=== PATIENT | female | born 1990 | race Caucasian/White ===

== ENCOUNTER 2018-05-23 00:15 | Outpatient (CLI) | payer SELFPAY ==
[2018-05-23 10:26] LABS: HCG Quant, Pregnancy 1856 mIU/mL (1-3)
[2018-05-24 17:30] LABS: Progesterone 27.5 ng/ml
== END 2018-05-23 00:35 ==
PROVIDERS: Visit Provider Obstetrics & Gynecology Reproductive Endocrinology
DX: Z32.01 Encounter for pregnancy test, result positive (principal)
CPT/HCPCS: 36415; 84144; 84702

== ENCOUNTER 2018-05-25 01:45 | Outpatient (CLI) | payer SELFPAY ==
[2018-05-25 09:39] LABS: HCG Quant, Pregnancy 3314 mIU/mL (1-3)
[2018-05-25 16:47] LABS: Progesterone 26.9 ng/ml
== END 2018-05-25 02:05 ==
PROVIDERS: Visit Provider Obstetrics & Gynecology Reproductive Endocrinology
DX: Z32.01 Encounter for pregnancy test, result positive (principal)
CPT/HCPCS: 36415; 84144; 84702

== ENCOUNTER 2020-04-07 11:53 | Outpatient (REF) | payer SELFPAY ==
--- NOTE | 2020-04-07 11:00 | PAPFT_PTH ---
PATIENT: Kandi Mireles LOC: [facility]#:[id number] AGE/SX: 29/F ROOM: RE04/07/[address]: Jayne Durant : 1990 BED: DIS: 04/07/2020 SPEC #: [id number] RECD: 04/10/20 13:08 STATUS: FADUMO REQ #: [id number] TONY: 04/07/20 11:[address]: Jayne Durant DEPT: [facility] Cytology RECD BY: Sunni Jung ENTERED: 04/10/20 13:08 SP TYPE: PAPFT OTHR DR: Bianca Snow Tissues: 1 - CX/ENDOCX FOR PAP SMEARS Procedures: PAP THIN PREP/UVM Screening Comments: [id number] (CHLAMYDIA/GC)
[2020-04-11 15:31] LABS: Chlamydia Result Negative (Negative); GC Result Negative (Negative)
== END 2020-04-07 12:13 ==
LOC: NCHCN 11:53
PROVIDERS: Visit Provider Nurse Practitioner Family
DX: Z12.4 Encounter for screening for malignant neoplasm of cervix (principal); Z11.3 Encounter for screening for infections with a predominantly sexual mode of transmission
CPT/HCPCS: 87491; 87591; 88142

== ENCOUNTER 2020-04-13 02:40 | Outpatient (CLI) | payer SELFPAY ==
--- NOTE | 2020-04-13 | DI.US_ITS ---
EXAM: US BREAST RT LIMITED CLINICAL HISTORY: RT BREAST LUMP, N63.0 TECHNIQUE: Ultrasound right breast performed using standard protocol. COMPARISON: No exams were available for comparison FINDINGS: There is a 1.3 x 1.0 X 1.4 centimeter cyst in the 12 o'clock position 4 cm from the nipple, correspo nding to the palpable abnormality. There are few other adjacent smaller cysts in the vicinity. Nose suspicious masses are seen. There is no evidence of ductal dilatation. IMPRESSION: 1.4 centimeter cyst corresponding to the palpable abnormality. BI-RADS Category 2 - Benign Findings DATA REPOSITORY:
== END 2020-04-13 03:00 ==
PROVIDERS: PCP Nurse Practitioner Family; Visit Provider Nurse Practitioner Family
DX: N60.01 Solitary cyst of right breast (principal)
CPT/HCPCS: 76642

== ENCOUNTER 2021-01-12 13:22 | Outpatient (REF) | payer OTHER, MEDICAID, SELFPAY ==
[2021-01-12 14:38] LABS: *AMPHETAMINES SCREEN URINE Negative (Negative); *BARBITURATES SCREEN URINE Negative (Negative); *BENZODIAZEPINES SCREEN URINE Negative (Negative); Cannabinoids THC Negative (Negative); Cocaine Screen,Urine Negative (Negative); METHADONE URINE SCREEN Negative (Negative); OPIATES URINE SCREEN Negative (Negative)
[2021-01-12 14:39] LABS: Tricyclic Antidepressants Negative (Negative)
[2021-01-16 08:58] LABS: Chlamydia Result Negative (Negative); GC Result Negative (Negative)
[2021-01-18 10:03] LABS: Buprenorphine Negative ng/mL (Cutoff: 5.0); Norbuprenorphine Negative ng/mL (Cutoff: 2.5)
== END 2021-01-12 13:23 | disposition home or self-care (01) ==
LOC: LBN 13:22
PROVIDERS: PCP Nurse Practitioner Family; Visit Provider Advanced Practice Midwife
DX: O09.01 Supervision of pregnancy with history of infertility, first trimester (principal); Z11.3 Encounter for screening for infections with a predominantly sexual mode of transmission; Z3A.12 12 weeks gestation of pregnancy
CPT/HCPCS: 80307; 87491; 87591; 87086

== ENCOUNTER 2021-01-17 02:55 | Outpatient (CLI) | payer OTHER, MEDICAID, SELFPAY ==
[2021-01-17 09:54] LABS: Kit/Specimen SENT
[2021-01-17 10:05] LABS: Abs Immature Grans 0.04 10^3/uL (0.0-0.06); Absolute Basophil Count 0.07 10^3/uL (0.0-0.2); Absolute Lymphocyte Count 2.51 10^3/uL (1.2-3.4); Absolute Monocyte Count 0.62 10^3/uL (0.1-0.8); Absolute Neutrophil Count 7.47 10^3/uL (1.2-6.7); Basophils % 0.6; Eosinophils % 1.8; HCT 40.8 % (36.0-46.0); HGB 13.6 g/dL (11.2-15.7); Immature Grans % 0.4; MCH 30.3 pg (27.0-33.0); MCHC 33.3 % (32.0-36.0); MCV 90.9 fL (80-95); Monocytes % 5.7; Neutrophils % 68.5; Nucleated RBC 0 %; Platelet Count 335 10^3/uL (130-400); RBC 4.49 10^6/uL (3.93-5.22); RDW 11.9 % (11.7-14.6); RDW-SD 39.7 fL; WBC 10.91 10^3/uL (4.4-10.8)
[2021-01-17 10:53] LABS: TSH (W/Ref FT4) 1.43 uIU/mL (0.36-3.74)
[2021-01-18 10:07] LABS: Hepatitis B Surface Ag Negative (Negative)
[2021-01-18 10:25] LABS: Hepatitis C Ab w Rflx HCV PCR Negative (Negative)
[2021-01-18 10:48] LABS: Varicella IgG Antibody Positive (See Note)
[2021-01-18 10:53] LABS: Rubella IgG Ab (UVM) Positive (See Note)
[2021-01-18 11:00] LABS: HIV-1/2 Ag & Ab Screen Negative (Negative)
[2021-01-20 10:55] LABS: Syphilis Total Ab w/Reflex Nonreactive (Nonreactive)
== END 2021-01-17 02:56 | disposition home or self-care (01) ==
PROVIDERS: PCP Nurse Practitioner Family; Visit Provider Advanced Practice Midwife
DX: Z34.91 Encounter for supervision of normal pregnancy, unspecified, first trimester (principal); Z11.4 Encounter for screening for human immunodeficiency virus [HIV]; Z11.59 Encounter for screening for other viral diseases; Z01.84 Encounter for antibody response examination
CPT/HCPCS: 36415; 86787; 86803; 86850; 86900; 86901; 87340; 87389; 84443; 85025; 86762; 86780

== ENCOUNTER 2021-05-08 03:30 | Outpatient (CLI) | payer MEDICAID, SELFPAY ==
[2021-05-08 10:41] LABS: HCT 38.1 % (36.0-46.0); HGB 12.8 g/dL (11.2-15.7); MCH 30.8 pg (27.0-33.0); MCHC 33.6 % (32.0-36.0); MCV 91.8 fL (80-95); MPV 9.9 fL (8.0-11.0); Platelet Count 291 10^3/uL (130-400); RBC 4.15 10^6/uL (3.93-5.22); RDW 12.5 % (11.7-14.6); RDW-SD 41.9 fL; WBC 13.88 10^3/uL (4.4-10.8)
[2021-05-08 10:48] LABS: Glucose,1 Hr (Glucola) 95 mg/dL (80-140)
== END 2021-05-08 03:31 | disposition home or self-care (01) ==
LOC: LBO 03:31
PROVIDERS: PCP Nurse Practitioner Family; Visit Provider Advanced Practice Midwife
DX: Z3A.28 28 weeks gestation of pregnancy; O26.893 Other specified pregnancy related conditions, third trimester
CPT/HCPCS: 36415; 82950; 85027

== ENCOUNTER 2021-07-04 15:12 | Outpatient (REF) | payer MEDICAID, SELFPAY ==
[2021-07-04 15:10] LABS: *AMPHETAMINES SCREEN URINE Negative (Negative); *BARBITURATES SCREEN URINE Negative (Negative); *BENZODIAZEPINES SCREEN URINE Negative (Negative); Cannabinoids THC Negative (Negative); Cocaine Screen,Urine Negative (Negative); METHADONE URINE SCREEN Negative (Negative); OPIATES URINE SCREEN Negative (Negative)
[2021-07-04 15:20] LABS: Tricyclic Antidepressants Negative (Negative)
[2021-07-17 14:51] LABS: Buprenorphine Negative ng/mL (Cutoff: 5.0); Norbuprenorphine Negative ng/mL (Cutoff: 2.5)
== END 2021-07-04 15:13 | disposition home or self-care (01) ==
LOC: LBN 15:12
PROVIDERS: PCP Nurse Practitioner Family; Visit Provider Advanced Practice Midwife
DX: O09.813 Supervision of pregnancy resulting from assisted reproductive technology, third trimester (principal)
CPT/HCPCS: 80307; 87081

== ENCOUNTER 2021-08-03 05:18 | Inpatient (IN) | payer MEDICAID, SELFPAY ==
[2021-08-03] VITALS (20 sets, daily range): BP systolic 98–123; BP diastolic 59–85; PULSE 79–117; RESP 18–20; TEMP 36.8–37.2; O2SAT 95–100
--- NOTE | 2021-08-03 05:22 | W.PM.OBHPL1 ---
Date of service: 08/03/21 Time of Service: 05: Assessment and Plan Assessment and plan (1) with 41 completed weeks gestation: Status: Acute (2) Spontaneous onset of labor: Status: Acute Assessment and plan: A: 30 yo @ 41 wks; IVF conception Presents in early labor, intact membranes GBS neg, low risk for SD and PPH Category 1 tracing though NST not technically reactive Planning unmedicated labor & P: COVID swab, observation for active labor Expectant management at this time Intermittent auscultation, regular diet OB-HPI Labor/Delivery History of Present Illness Reason for Visit: Spontaneous onset of labor Chief Complaint: Uterine Contractions (Contractions since 1830 last night, became stronger and more consistent at 0300, no ROM, no bleeding, no nausea or vomiting). SUGEY Calculator Estimated Delivery Date Method Current WG Current Estimate 07/27/21 Ultrasound #1 41w 0d Other Estimates 07/27/21 Manual 41w 0d based on egg transfer date of 11/08/2020([facility]) History of Present Expected Delivery Route/Plan - CNM FOB/ - Darinel Mireles (first child) BG- Gladis Disha Wants access to avoid interventions, access tub/shower/nitrous GBS negative Specific Issues/Plan 1. Desires all genetic screening, will call for bld draw once she knows the financial requirements. 1a. [place] desired - drawn 01/17; result = low prob x3, female fetus 2. IVF after 3 SAB's, etiology unknown 2a. Level 2 US offered due to IVF conception, MFM consult 04/17: nml , no f/up indicated. 3. Low lying placenta @ 18 wks 03/01 - precautions reviewed - repeat US @ 28 wks 3a. [facility] [place]: no previa, placenta not low lying. 4. Darinel and Kandi are not vaccinated against covid. Assessment: History Reviewed & Current Review of Systems All systems reviewed & are unremarkable except as noted in HPI and below Constitutional Constitutional: Reports as per HPI Cardiovascular Cardiovascular: Reports system reviewed and no additional complaints, except as documented Respiratory Respiratory: Reports system reviewed and no additional complaints, except as documented Gastrointestinal Gastrointestinal: Reports system reviewed and no additional complaints, except as documented Genitourinary Genitourinary: Reports system reviewed and no additional complaints, except as documented Musculoskeletal Musculoskeletal: Reports system reviewed and no additional complaints, except as documented Integumentary/Breasts Skin/Breast: Reports system reviewed and no additional complaints, except as documented Neurologic Neurologic: Reports system reviewed and no additional complaints, except as documented Psychiatric Psychiatric: Reports system reviewed and no additional complaints, except as documented Endocrine Comments: Infertility and habitual SAB, this a product of IVF PFSH All Active Problems (Updated 08/03/21 @ 05:31 by Mellisa Gonzalez) with 41 completed weeks gestation (Acute) Spontaneous onset of labor (Acute) resulting from in vitro fertilization (Acute) Medical History (Updated 08/03/21 @ 05:31 by Mellisa Gonzalez) 12 weeks gestation of Low lying placenta nos or without hemorrhage, second trimester resolved in third trimester Ovarian cyst Family History Mother Cervical cancer Hyst r/t cancer Essential hypertension Father No problems noted. Sister No problems noted. Sister No problems noted. Brother No problems noted. Grandmother Breast cancer tx with lumpectomy Social History Smoking/Tobacco Use Status: Never Smoking risk assessment performed?: Yes History History 4 Para 0 Hx # Term Pregnancies 0 Multiple births 0 Hx # Pregnancies 0 Ectopic pregnancies 0 AB induced 0 Hx Number of Living Children 0 AB spontaneous 3 Meds Allergies and Home Medications Allergies Allergy/AdvReac Type Severity Reaction Status Date / Time No Known Drug Allergies Allergy Verified 08/03/21 03:47 seasonal Allergy Intermediate runny Uncoded 08/03/21 03:47 nose, postnasal drip cats Allergy Mild Uncoded 08/03/21 03:47 Home Medications Medication Instructions Recorded Confirmed Type [id number] 1 tab-cap PO DAILY tab-cap 07/04/17 08/03/21 History [Prenata Chewable Tablet] calcium carbonate 200 mg calcium 200 mg PO BID PRN 04/10/21 08/03/21 History (500 mg) chewable tablet ferrous sulfate 325 mg (65 mg 325 mg PO .COMPLEX 04/10/21 08/03/21 History iron) tablet Exam Physical Exam Vital signs: Temp Pulse Resp BP 98.2 F 117 H 18 104/77 08/03/21 04:43 08/03/21 04:43 08/03/21 04:43 08/03/21 04:43 Vital Signs Reviewed: Yes Constitutional Constitutional: no acute distress Detailed Labor and Delivery Exam Dilation: 3 Effacement (%): 100 station: -3 Position: LOP Cervix position: mid Consistency: soft PACKER Score(Cervical Ripeness Score): 8 Amniotic Membrane Status: Intact Contraction Frequency(min): q3-6 Contraction Duration(sec): 60 Contraction Intensity: Mild Fetus A Heart Rate Baseline: 155 Monitor Accelerations: Present Monitor Decelerations: None Variability: Moderate (6-25 BPM) Presentation: Cephalic Categories: Category I Est. Weight: 7 lb 0.877 oz Est. Weight: 3200 gm HEENT Exam HEENT Exam: Normal Neck Exam Neck Exam: Normal Chest/Brest/Axilla Exam Chest Exam: Normal Breast Exam Breast Exam: Not Done Respiratory Exam Respiratory Exam: Normal Cardiovascular Exam Cardiovascular Exam: Normal Abdominal Exam Abdominal Exam: Normal (Gravid, nontender) Rectal Exam Rectal Exam: Normal Exam Exam: Normal Extremities Exam Extremities Exam: Normal Back/Spine/Pelvis Exam Back Exam: Normal Pelvis Adequate: Yes Skin Exam Skin Exam: Normal Neurological Exam Neurological Exam: Normal Psychiatric Exam Psychiatric Exam: Normal Results Results Group Beta Strep: Negative Blood Type: O+ Rubella Status: Immune Varicella Immunity: Immune Risk Assessment Risk for Shoulder Dystocia Historical/Initial OB: NEGATIVE FOR: Pelvic Abnormality, Pre- BMI>30, Previous Shoulder Dystocia or Previous Macrosomia 40 Weeks: NEGATIVE FOR: EFW> 4500 gms, Maternal Weight Gain >40lb or Post Dates Increased Risk?: No Delivery Plan @ 36wks: spont labor, Delivery Plan @ 40 wks: spont labor, Risk for Pre-Eclampsia Date Initiated/Initials: not indicated Yes, if one or more: NEGATIVE FOR: Hx Pre-E/Gest HTN, Chronic HTN, Multiple Gestation, Pre-gestational DM, Renal Disease, Systemic Lupus or APA Syndrome Yes, if 2 or more: POSITIVE FOR: Nulliparity; NEGATIVE FOR: Age>= 35 yrs, >10yr btwn pregnancies, BMI>30, ethinicty, Mother/Sister w/ Pre-E or Previous IUGR Risk for Post- Hemorrhage Initial: NEGATIVE FOR: Multiple Gestation, Previous PPH, Known Clotting Deficiency, Grand Multiparity or Anticoagulation At Risk?: No Counseled re: Active Management: Yes Risks Reviewed Risks Reviewed Upon Admission: Yes
[2021-08-03 05:49] LABS: Source Nasal/Nares
[2021-08-03 06:14] LABS: HCT 40.1 % (36.0-46.0); MCH 30.7 pg (27.0-33.0); MCHC 32.4 % (32.0-36.0); MCV 94.6 fL (80-95); MPV 10.6 fL (8.0-11.0); Platelet Count 191 10^3/uL (130-400); RBC 4.24 10^6/uL (3.93-5.22); RDW 12.7 % (11.7-14.6); RDW-SD 43.9 fL; WBC 12.64 10^3/uL (4.4-10.8)
[2021-08-03 06:30] LABS: COVID-19 PCR POSITIVE (Negative)
--- NOTE | 2021-08-03 07:37 | W.PM.OBNL1 ---
Date of service: 08/03/21 Time of Service: 07:37 Assessment and Plan Assessment and plan (1) COVID-19 affecting in third trimester: Status: Acute Assessment and plan: A: COVID Swab is positive Upon renewed questions pt states she has had a mild sore throat since yesterday Afebrile, no cough observed P: Pt and FOB moved to isolation birthing suite Reviewed precautions required Objective Abnormal lab results 08/03/21 08/03/21 Range/Units 05:30 06:06 WBC 12.64 H (4.4-10.8) 10^3/uL SARS-CoV-2 (PCR) POSITIVE A* (Negative) Temp Pulse Resp BP 98.2 F 117 H 18 104/77 08/03/21 06:43 08/03/21 06:43 08/03/21 06:43 08/03/21 06:43 Laboratory Results WBC 12.64 10^3/uL (4.4-10.8) H 08/03/21 06:06 RBC 4.24 10^6/uL (3.93-5.22) 08/03/21 06:06 Hgb 13.0 g/dL (11.2-15.7) 08/03/21 06:06 Hct 40.1 % (36.0-46.0) 08/03/21 06:06 MCV 94.6 fL (80-95) 08/03/21 06:06 MCH 30.7 pg (27.0-33.0) 08/03/21 06:06 MCHC 32.4 % (32.0-36.0) 08/03/21 06:06 RDW 12.7 % (11.7-14.6) 08/03/21 06:06 Plt Count 191 10^3/uL (130-400) 08/03/21 06:06 MPV 10.6 fL (8.0-11.0) 08/03/21 06:06 COVID-19 Source Nasal/Nares 08/03/21 05:30 SARS-CoV-2 (PCR) POSITIVE (Negative) A* 08/03/21 05:30 Patient ABO/Rh O Positive 08/03/21 06:06 Antibody Screen NEGATIVE 08/03/21 06:06 Subjective Patient Reports: No new Complaints Results Abnormal Lab Findings: Abnormal Labs 08/03/21 08/03/21 05:30 06:06 WBC 12.64 H SARS-CoV-2 (PCR) POSITIVE A*
--- NOTE | 2021-08-03 11:46 | NUR.NOTE ---
08/03/21 Parents have viewed the following video's Shaken Baby, Safe Sleep, Car Seat Safety and Breastfeeing 1,2,3
--- NOTE | 2021-08-03 12:59 | W.PM.OBNL1 ---
Date of service: 08/03/21 Time of Service: 12:59 Pelvic Exam Dilation: 5 Effacement (%): 100 station: -2 Position: LOT Cervix Position: anterior Consistency: soft Contractions Contraction Frequency(min): q3-4 Contraction Duration(sec): 50-70 Intensity: Moderate Fetus A Monitor: External (US) Heart Rate Baseline: 150 Presentation: Cephalic Variability: Moderate (6-25 BPM) Categories: Category I Accelerations: 15 X 15 Decelerations: Early Amniotic Membrane Status: Intact (soft BBOW palpable) Assessment and Plan Assessment and plan (1) Spontaneous onset of labor: Status: Acute Assessment and plan: A: Primipara, early active labor, progressing COVID infection, mild sx P: Continue expectant management Intermittent auscultation Comfort measures as requested All options for pain management reviewed/discussed Anticipate Objective Vital Signs Reviewed: Yes Objective Narrative Objective Narrative: Pt has been resting, ambulating, and has showered. Tolerating PO intake well Effective support provided by FOB Spontaneous labor appears to be more active now Cvx changed to 5/100% vtx -2, intact with soft BBOW Pt reaffirms her preference for unmedicated labor and experience Afebrile and normotensive Category 1 tracing, reassuring intermittent FHT per doppler Subjective Interval history since last seen: Contractions have gotten more painful and frequent
--- NOTE | 2021-08-03 19:46 | W.PM.OBNL1 ---
Date of service: 08/03/21 Time of Service: 19:46 Pelvic Exam Dilation: 8 Effacement (%): 100 station: -2 Cervix Position: anterior Consistency: soft Vaginal Exam Presentation: Cephalic Contractions Monitor Mode: External Contraction Frequency(min): Q3-4 Contraction Duration(sec): 80-100 Intensity: Moderate/Strong Fetus A Monitor: External (US) Heart Rate Baseline: 150 Variability: Moderate (6-25 BPM) Categories: Category I Accelerations: 15 X 15 Decelerations: Early Amniotic Membrane Status: Intact Assessment and Plan Assessment and plan (1) Spontaneous onset of labor: Status: Acute Assessment and plan: A: Active labor, primipara Category 1 tracing In isolation for COVID infection P: Comfort measures and support as needed Encourage PO fluid intake Continue expectant management Anticipate Objective Vital Signs Reviewed: Yes Objective Narrative Objective Narrative: Breathing hard with contractions, Very effective support from FOB Pleased with her progress to transition Category 1 tracing Subjective Interval history since last seen: Labor pains have been intensifying throughout the afternoon, has showered, ambulated, but found that hands and knees on floor mat most helpful.
--- NOTE | 2021-08-03 20:56 | W.PM.OBNL1 ---
Date of service: 08/03/21 Time of Service: 20:56 Fetus A Monitor: Doppler Heart Rate Baseline: 150 FHR Rhythm: Regular Accelerations: Present Decelerations: None Amniotic Membrane Status: Ruptured Rupture Method: Spontaneous Amniotic Fluid: Clear Date of Membrane Rupture: 08/03/21 Time of Membrane Rupture: 20:20 Assessment and Plan Assessment and plan (1) Spontaneous onset of labor: Status: Acute Assessment and plan: A: SROM clear fluid @ 8-9 cm, vtx -2 pt coping well with labor P: Continue expectant management Will await spontaneous urges to bear down for 2nd stage huddle Anticipate Subjective Interval history since last seen: Pt was lying down when her water broke Results Abnormal Lab Findings:
--- NOTE | 2021-08-03 23:29 | W.PM.OBNL1 ---
Date of service: 08/03/21 Time of Service: 23:30 Informed Consent Informed Consent: Augmentation of Labor (pit aug in 2nd stage) Pelvic Exam Dilation: 9.5 Effacement (%): 100 station: +1 Position: CHERI Contractions Monitor Mode: External Contraction Frequency(min): q4-6 Contraction Duration(sec): 60 Intensity: Moderate/Strong Fetus A Monitor: External (US) Heart Rate Baseline: 155 Variability: Moderate (6-25 BPM) Categories: Category I Accelerations: 15 X 15 Decelerations: None Amniotic Membrane Status: Ruptured (forebag AROM'ed for small amt clear fluid) Assessment and Plan Assessment and plan (1) Spontaneous onset of labor: Status: Acute Assessment and plan: A: Inadequate contraction pattern 2nd stage labor with vtx @ +2 A: Begin pitocin augmentation, pt give consent after review of R&B Will resume pushing efforts when contractions strengthen Objective Pt has slowly and steadily progressed to Vital Signs Reviewed: Yes Objective Narrative Objective Narrative: Pt has slowly and steadily progressed Contractions have spaced out to q4-6 minutes or even further apart Vtx is CHERI with small but persistent anterior lip Intermittent FHT has been reassuring Excellent maternal efforts though pt appears to be tiring Subjective Interval history since last seen: Spontaneous urges to bear down occur with contractions but contractions seem to have spaced apart Interventions Augmentation , Pitocin rate (mU/min): 2 2nd stage augmentation due to inadequate contraction frequency & strength .
[2021-08-04] VITALS (11 sets, daily range): BP systolic 107–127; BP diastolic 63–80; PULSE 88–114; RESP 20; TEMP 36.6–36.9; O2SAT 97–100
[2021-08-04] MEDS: Normal Saline 500 ML 120 ML IV (00:13)
[2021-08-04] MEDS: Normal Saline Flush 10 ML SYR IVP (00:14)
[2021-08-04] MEDS: Oxytocin/Normal Saline 30 UNIT/500 ML BAG 2 UNITS IV (00:15)
[2021-08-04] MEDS: Lactated Ringers 1,000 ML 125 ML IV (01:07)
--- NOTE | 2021-08-04 02:49 | OBVDS_ITS ---
Date of service: 08/04/21 Time of Service: 02:49 OB Labor/ Delivery Information Baby A Delivery Delivery Method: Spontaneaous Presentation: Cephalic Cephalic Position: Vertex Vertex Position: Left Occipital Anterior Breech Position: N/A Cord Description-Baby A: 3 Vessels Amniotic Fluid: Clear Estimated Blood Loss: 250 Delivery Outcome: Liveborn Transferred: Remains with Mother Note: Once pitocin augmentation began, contractions responded quickly with increased frequency and strength. Pt resumed pushing efforts with thin anterior lip easily reduced to complete dilation and vtx @ +2 at 0035. Strong maternal efforts continued, pitocin increased to a maximum of 6 mu/min, category 1 tracing continued. of a vigorous female over small MLE cut after noting severe blanching of perineum and lower labia bilaterally during prolonged . Shoulders came easily, right nuchal hand noted with right arm delivering prior to posterior shoulder, infant was placed in mother's arms immediately. Pitocin IV bolus was begun. At 5 minutes the cord ceased pulsating, clamped then cut by FOB. Cord blood was collected, Alfonso placenta delivered intact with 3VC. 2nd degree perineal extension was repaired under local anesthesia with 3.0 Vicryl, anal sphincter and capsule were intact. Strong family bonding was observed, apgars were 9/9, weight 3525 gms. Providers Nurse Roll Table Operator: Mellisa Gonzalez Nurse: Bianca Amador Labor/Delivery Information Number of Babies in Womb: 1 Steroids Given: None Reason Steroids Not Administered: N/A Group Beta Strep: Negative Antibiotics Administered: No Rubella Status: Immune Blood Type: O+ Varicella Immunity: Immune Medication in Delivery: oxytocin Maternal Complications: None Shoulder Dystocia: No Stages of Labor Onset of Labor Date: 08/02/21 Onset of Labor Time: 19:00 Complete Dilatation Date: 08/03/21 Complete Dilatation Time: 00:35 Labor - Stage 1 Duration: 24 hours and 0 minutes ROM Baby A: 08/03/21 ROM Baby A: 22:34 ROM Total Time- Baby A: [id number] Delivery Date-Baby A: 08/04/21 Infant Delivery Time-Baby A: 01:59 Labor Stage 2 Duration: 25 hours and 24 minutes Placenta Delivery Date-Baby A: 08/04/21 Placenta Delivery Time-Baby A: 02:10 Labor-Stage 3 Duration: 11 minutes Total Length of Labor-Baby A: 30 hours and 59 minutes Placenta Cultured: No Placenta Status: Delivered Baby A Gender: Female Gestational Status: Term (39-41.6 wks) Gestational Age in Weeks/Days: 41 Weeks and 1 Days weight: 7 lb 12.341 oz Weight Comment: 3525 gms Score-1 Minute Interval(Baby A) Heart Rate-1 minute: 100 BPM or Greater Respiratory Effort- 1 minute: Spontaneous/Strong Cry Muscle Tone-1 minute: Active Movement Reflex Response-1 minute: Prompt Response Color-1 minute: Bluish Hands or Feet Total Score-1 minute: 9 Score-5 Minute Interval(Baby A) Heart Rate- 5 minute: 100 BPM or Greater Respiratory Effort-5 minute: Spontaneous/Strong Cry Muscle Tone-5 minute: Active Movement Reflex Response-5 minute: Prompt Response Color-5 minute: Bluish Hands or Feet Total Score- 5 minute: 9 Procedure Procedures: Cord Blood Collection Interventions Augmentation , Pitocin rate (mU/min): 6 2nd stage augmentation ./ Repair of Laceration Type: Perineal , Laceration Extension: Second Degree . Sponge Count Correct: No Sponges Placed in Vagina , Sharp Count Correct: Yes . Laceration Repair Note: Small MLE cut during extended to second degree, repaired under local anesthesia with 3.0 Vicryl.
[2021-08-04] MEDS: Dibucaine 1% 28 GM TUBE TP (04:30)
[2021-08-04] MEDS: Hamamelis Leaf/Glycerin 100 EACH BOX PR (04:30)
[2021-08-04] MEDS: Docusate Sodium 100 MG CAP PO ×2 (13:50→20:09)
[2021-08-04] MEDS: Acetaminophen 325 MG TAB 650 MG PO ×2 (16:05→20:08)
[2021-08-04] MEDS: Ibuprofen 600 MG TAB PO (20:09)
--- NOTE | 2021-08-04 22:31 | W.PM.OBPNV1 ---
Date of service: 08/05/21 Time of Service: 08:55 Assessment and Plan Assessment and plan (1) Term delivered: Status: Acute Assessment and plan: A: PPD#1, nml recovery off to a good start Satisfied with experience P: Pt is hoping for discharge by Peds today Written instructions reviewed and given to pt Will resume PNV's once she is at home F/up at 2 & 6 wks PP Declines BCM at this time (2) COVID-19 affecting in third trimester: Status: Acute Subjective Subjective Patient comments: Pain well controlled, Tolerating diet and Flatus present [place] baby status: Doing well, Nursing well, Rooming in and Strong Bonding Observed feeding status: Exclusively breast feeding Exam Physical Exam Vital signs: Temp Pulse Resp BP Pulse Ox 98.1 F 94 H 20 119/76 97 08/04/21 20:05 08/04/21 20:05 08/04/21 20:05 08/04/21 20:05 08/04/21 20:05 Vital Signs Reviewed: Yes Constitutional Constitutional: no acute distress HEENT Exam HEENT Exam: Normal Neck Exam Neck Exam: Normal Breast Exam Bilateral: Breast Exam: Normal and Soft Nipple Exam: Normal and Uninjured Respiratory Exam Respiratory Exam: Normal Cardiovascular Exam Cardiovascular Exam: Normal Abdominal Exam Abdomen: Other (soft and nontender) Fundal Exam Fundus: Below Umbilicus and Firm Rectal Exam Rectal Exam: Normal Exam Perineum: Repair Intact Extremities Exam Extremity Exam: Normal Back/Spine/Pelvis Exam Back Exam: Normal Skin Exam Skin Exam: Normal Neurological Exam Neurological Exam: Normal Psychiatric Exam Psychiatric Exam: Normal
[2021-08-05 07:17] LABS: HCT 33.4 % (36.0-46.0); HGB 10.7 g/dL (11.2-15.7); MCH 30.7 pg (27.0-33.0); MCV 95.7 fL (80-95); MPV 10.6 fL (8.0-11.0); Platelet Count 201 10^3/uL (130-400); RBC 3.49 10^6/uL (3.93-5.22); RDW 13.1 % (11.7-14.6); RDW-SD 45.8 fL; WBC 14.42 10^3/uL (4.4-10.8)
[2021-08-05] MEDS: Acetaminophen 325 MG TAB 650 MG PO ×3 (08:14→23:28)
[2021-08-05 08:15] VITALS: BP 102/61; PULSE 76; RESP 18; TEMP 36.5; O2SAT 98
[2021-08-05] MEDS: Hamamelis Leaf/Glycerin 100 EACH BOX PR (08:15)
[2021-08-05] MEDS: Docusate Sodium 100 MG CAP PO (08:15)
[2021-08-05] MEDS: Dibucaine 1% 28 GM TUBE TP (08:15)
[2021-08-05] MEDS: Ibuprofen 600 MG TAB PO ×2 (08:15→16:35)
[2021-08-05 13:20] VITALS: BP 113/69; PULSE 80; RESP 16; TEMP 36.5; O2SAT 99
[2021-08-05 16:15] VITALS: BP 114/66; PULSE 74; RESP 16; TEMP 36.9
[2021-08-05 16:35] VITALS: TEMP 36.9
[2021-08-05 20:04] VITALS: BP 117/75; PULSE 74; RESP 18; TEMP 36.7; O2SAT 98
[2021-08-06 07:37] VITALS: BP 120/80; PULSE 89; RESP 16; TEMP 36.6; O2SAT 98
--- NOTE | 2021-08-06 08:29 | W.PM.OBPNV1 ---
Date of service: 08/06/21 Time of Service: 08:29 Assessment and Plan Assessment and plan (1) Term delivered: Status: Acute Assessment and plan: A: PPD#2, nml recovery LC consult done yesterday afternoon P: Discharge to home today Written instructions reviewed and given to pt Will resume PNV's once she is at home F/up at 2 & 6 wks PP Declines BCM at this time (2) COVID-19 affecting in third trimester: Status: Acute Assessment and plan: No increase in symptoms Will continue isolation at home Masking and hand hygiene to protect infant emphasized Subjective Subjective Patient comments: No complaints, Pain well controlled, Tolerating diet and Flatus present [place] baby status: Doing well, Nursing well, Rooming in and Strong Bonding Observed [place] feeding status: Exclusively breast feeding Exam Physical Exam Vital signs: Temp Pulse Resp BP Pulse Ox 97.9 F 89 16 120/80 98 08/06/21 07:37 08/06/21 07:37 08/06/21 07:37 08/06/21 07:37 08/06/21 07:37 Vital Signs Reviewed: Yes Constitutional Constitutional: no acute distress HEENT Exam HEENT Exam: Normal Neck Exam Neck Exam: Normal Breast Exam Bilateral: Breast Exam: Normal and Soft Nipple Exam: Normal and Uninjured Respiratory Exam Respiratory Exam: Normal Cardiovascular Exam Cardiovascular Exam: Normal Abdominal Exam Abdomen: Other (soft and nontender) Fundal Exam Fundus: Below Umbilicus and Firm Rectal Exam Rectal Exam: Normal Exam Perineum: Repair Intact Extremities Exam Extremity Exam: Normal Back/Spine/Pelvis Exam Back Exam: Normal Skin Exam Skin Exam: Normal Neurological Exam Neurological Exam: Normal Psychiatric Exam Psychiatric Exam: Normal Results Hemoglobin/Hematocrit: Hgb 10.7 g/dL (11.2-15.7) L D 08/05/21 07:00 Hct 33.4 % (36.0-46.0) L 08/05/21 07:00 Abnormal Lab Findings: Abnormal Labs 08/03/21 08/03/21 08/05/21 05:30 06:06 07:00 WBC 12.64 H 14.42 H RBC 3.49 L Hgb 10.7 L D Hct 33.4 L MCV 95.7 H SARS-CoV-2 (PCR) POSITIVE A* Hemorrrhage Note IV Site Left Wrist: IV Catheter Gauge: 20
--- NOTE | 2021-08-06 08:32 | DSE_ITS ---
Date of service: 08/06/21 Time of Service: 08:32 DS: Diagnosis Discharge Diagnosis (1) Term delivered: Status: Acute (2) COVID-19 affecting in third trimester: Status: Acute Discharge Plan Disposition Patient Disposition: HOME Condition: Good Discharge Details Reason For Visit: R/O Labor at 41 Wks Admit Date/Time: 08/03/21 05:47 Admit Provider: Mellisa Gonzalez Attending Provider: Mellisa Gonzalez Primary Care Provider: Jayne Durant Hospital Course Hospital Course: Spontaneous onset of labor, unmedicated course of care, required pitocin augmentation in 2nd stage, , nml course. Unexpected COVID positive test upon admission, pt has exhibited very mild symptoms, afebrile. Home Meds and New Rx's Prescriptions: No Action calcium carbonate [Tums] 200 mg calcium (500 mg) tablet,chewable 200 mg PO BID PRNRF: 0 ferrous sulfate [FeroSul] 325 mg (65 mg iron) tablet 325 mg PO .COMPLEX RF: 0 PreNata 1 EACH tablet,chewable 1 tab-cap PO DAILY RF: 0 Discharge Instructions Additional Instructions: Please keep your 2 & 6 weeks appointments with your salesperson men's and boys' clothing, and call the salesperson men's and boys' clothing legal receptionist for any concerns or questions. Stand Alone Forms: BC Instructions, BC Post Vaginal Deliver Activity:: Activity as Tolerated Equipment/Supplies:: No Equipment Needed Diet:: Normal Diet OB:DS Summary Summary Vaginal Delivery Method: Spontaneaous Episiotomy Description: Midline Laceration Description: Perineal Laceration Extension: Second Degree Contraception Discussed Contraception Discussed: Yes Contraceptive Plan: Not planning to use, [place] Infant Gender-Baby A: Female weight: 7 lb 12.341 oz Status at Discharge Functional status at discharge: independent ambulation Overall status at discharge: patient is progressing back to baseline Mental Status: mental status grossly normal Speech and Movement: speech and movement normal and speech clear Mood: congruent mood Affect: normal affect Exam Physical Exam Vital signs: Temp Pulse Resp BP Pulse Ox 97.9 F 89 16 120/80 98 08/06/21 07:37 08/06/21 07:37 08/06/21 07:37 08/06/21 07:37 08/06/21 07:37 Constitutional Constitutional: no acute distress HEENT Exam HEENT Exam: Normal Neck Exam Neck Exam: Normal Breast Exam Bilateral: Breast Exam: Normal and Soft Respiratory Exam Respiratory Exam: Normal Cardiovascular Exam Cardiovascular Exam: Normal Abdominal Exam Abdomen: Other (soft and nontender) Fundal Exam Fundus: Below Umbilicus and Firm Rectal Exam Rectal Exam: Normal Exam Perineum: Repair Intact Extremities Exam Extremity Exam: Normal Back/Spine/Pelvis Exam Back Exam: Normal Skin Exam Skin Exam: Normal Neurological Exam Neurological Exam: Normal Psychiatric Exam Psychiatric Exam: Normal PFSH All Active Problems (Updated 08/04/21 @ 22:34 by Mellisa Gonzalez) Term delivered (Acute) COVID-19 affecting in third trimester (Acute) Medical History (Updated 08/04/21 @ 22:34 by Mellisa Gonzalez) 12 weeks gestation of Low lying placenta nos or without hemorrhage, second trimester resolved in third trimester Ovarian cyst resulting from in vitro fertilization with 41 completed weeks gestation Spontaneous onset of labor Family History Mother Cervical cancer Hyst r/t cancer Essential hypertension Father No problems noted. Sister No problems noted. Sister No problems noted. Brother No problems noted. Grandmother Breast cancer tx with lumpectomy Social History Smoking/Tobacco Use Status: Never Smoking risk assessment performed?: Yes Do you feel safe at home: Yes Do you feel safe in your relationship?: Yes History History 4 Para 0 Hx # Term Pregnancies 0 Multiple births 0 Hx # Pregnancies 0 Ectopic pregnancies 0 AB induced 0 Hx Number of Living Children 0 AB spontaneous 3 DS: Data Vitals/I&O Vitals and I&O: Vital Signs Temperature 97.9 F 08/06/21 07:37 Pulse 89 08/06/21 07:37 Pulse Rhythm Regular 08/05/21 20:04 Respiratory Rate 16 08/06/21 07:37 Respiratory Depth Normal 08/05/21 16:30 Blood Pressure 120/80 08/06/21 07:37 Blood Pressure Mean 93 08/06/21 07:37 Pulse Oximetry 98 08/06/21 07:37 Pain Level 0 08/06/21 07:37
[2021-08-06] MEDS: Acetaminophen 325 MG TAB 650 MG PO (11:22)
== END 2021-08-06 11:40 | disposition home or self-care (01) | DRG 805 ==
PROVIDERS: Admitting Provider Advanced Practice Midwife; PCP Nurse Practitioner Family; Visit Provider Advanced Practice Midwife
DX: O98.52 Other viral diseases complicating childbirth (principal); U07.1 COVID-19; Z37.0 Single live birth; Z3A.41 41 weeks gestation of pregnancy; O70.1 Second degree perineal laceration during delivery
CPT/HCPCS: 36415; 85027; 86850; 86900; 86901; 87635; J3490

== ENCOUNTER 2022-07-24 12:38 | Outpatient (REF) | payer MEDICAID, SELFPAY ==
[2022-07-24 14:21] LABS: Bilirubin Negative (Negative); Blood Negative (Negative); Clarity Clear (Clear); Glucose Negative (Negative); Ketones Negative (Negative); Leukocyte Esterase Negative (Negative); Nitrite Negative (Negative); Urobilinogen 0.2 EU/dL (Up TO 0.2); pH 5.5 (5-8)
[2022-07-24 14:33] LABS: ESR 4 mm/hr (0-20); HCT 42.1 % (36.0-46.0); HGB 13.9 g/dL (11.2-15.7); MCV 91 fL (80-95); MPV 9.9 fL (8.0-11.0); Platelet Count 351 10^3/uL (130-400); RBC 4.63 10^6/uL (3.93-5.22); RDW 11.9 % (11.7-14.6); RDW-SD 39.8 fL; WBC 8.85 10^3/uL (4.4-10.8)
[2022-07-24 14:41] LABS: Bacteria Negative HPF (Negative); C & S Indicated? No; Casts Negative LPF (Negative); Crystals Negative HPF (Negative); Epithelial Cells Rare HPF (Negative); Mucus Negative (Negative); RBC Negative HPF (0-2); WBC Negative HPF (0-5)
[2022-07-24 22:06] LABS: ALT 23 U/L (14-59); AST 21 U/L (15-37); Albumin 4.5 g/dL (3.4-5.0); Alkaline Phosphatase 101 U/L (46-116); Anion Gap 8.9 mmol/L (3-11); BUN 15 mg/dL (7-18); Bilirubin, Total 0.9 mg/dL (0.2-1.0); CO2 28.1 mmol/L (21.0-32.0); CREATININE 0.7 mg/dL (0.55-1.02); Calcium 9.1 mg/dL (8.5-10.1); Chloride 102 mmol/L (98-107); Estimated GFR 119.24 (mL/min/1.73m2); Glucose 82 mg/dL (74-106); Potassium 3.9 mmol/L (3.5-5.1); Sodium 139 mmol/L (136-145); Total Protein 7.7 g/dL (6.4-8.2)
[2022-07-24 22:11] LABS: C-Reactive Protein < 0.05 mg/dL (0.0-0.3)
[2022-07-25 18:28] LABS: Rheumatoid Factor <8.6 IU/mL (<12.0)
[2022-07-26 12:44] LABS: ANA Interpretation Positive (Negative); ANA Titer Pattern 1:160 Speckled
== END 2022-07-24 12:39 | disposition home or self-care (01) ==
LOC: NCHCN 12:38
PROVIDERS: PCP Nurse Practitioner Family; Visit Provider Family Medicine
DX: R22.0 Localized swelling, mass and lump, head (principal); M25.59 Pain in other specified joint; E03.9 Hypothyroidism, unspecified; R82.998 Other abnormal findings in urine; R76.0 Raised antibody titer
CPT/HCPCS: 80053; 85027; 85652; 81003; 81015; 86038; 86140; 86431

== ENCOUNTER 2022-07-31 15:06 | Outpatient (REF) | payer MEDICAID, SELFPAY ==
[2022-08-02 13:19] LABS: SS-A Antibody 0.8 Units (<20.0)
[2022-08-02 14:15] LABS: Sm (Smith) Ab, IgG 2.3 Units (<20.0)
[2022-08-02 15:51] LABS: dsDNA Ab, IgG <12.3 IU/mL (<30.0)
== END 2022-07-31 15:07 | disposition home or self-care (01) ==
LOC: NCHCN 15:06
PROVIDERS: PCP Nurse Practitioner Family; Visit Provider Family Medicine
DX: R76.0 Raised antibody titer (principal); H15.11 Episcleritis periodica fugax
CPT/HCPCS: 86225; 86235

== ENCOUNTER 2024-04-14 22:12 | Outpatient (REF) | payer MEDICAID, SELFPAY ==
[2024-04-14 21:12] LABS: HCT 37.4 % (36.0-46.0); HGB 12.3 g/dL (11.2-15.7); MCH 30.2 pg (27.0-33.0); MCHC 32.9 % (32.0-36.0); MCV 92 fL (80-95); MPV 10.1 fL (8.0-11.0); Platelet Count 387 10^3/uL (130-400); RBC 4.07 10^6/uL (3.93-5.22); RDW 11.8 % (11.7-14.6); RDW-SD 39.5 fL; WBC 11.41 10^3/uL (4.4-10.8)
[2024-04-14 21:29] LABS: Iron 54 ug/dL (50-170); Total Iron Binding Capacity 306 ug/dL (250-450); Transferrin Sat 18 % (15-50)
[2024-04-14 21:32] LABS: ALT 22 U/L (14-59); AST 14 U/L (15-37); Albumin 3.8 g/dL (3.4-5.0); Alkaline Phosphatase 78 U/L (46-116); BUN 15 mg/dL (7-18); Bilirubin, Total 0.34 mg/dL (0.2-1.0); CREATININE 0.9 mg/dL (0.55-1.02); Calcium 9.1 mg/dL (8.5-10.1); Chloride 104 mmol/L (98-107); Estimated GFR 87.11 (mL/min/1.73m2); Ferritin 63 ng/mL (8-252); Glucose 90 mg/dL (74-106); Potassium 4.3 mmol/L (3.5-5.1); Sodium 140 mmol/L (136-145); TSH (W/Ref FT4) 1.49 uIU/mL (0.36-3.74); Total Protein 6.9 g/dL (6.4-8.2)
== END 2024-04-14 22:13 | disposition home or self-care (01) ==
LOC: NCHCN 22:12
PROVIDERS: PCP Nurse Practitioner Family; Visit Provider Nurse Practitioner Family
DX: N93.9 Abnormal uterine and vaginal bleeding, unspecified (principal)
CPT/HCPCS: 80053; 85027; 82728; 83540; 83550; 84443

== ENCOUNTER 2024-05-25 13:14 | Outpatient (REF) | payer MEDICAID, SELFPAY ==
[2024-05-27 18:49] LABS: Tissue Transglutaminase Ab IgG <1.2 U/mL
== END 2024-05-25 13:15 | disposition home or self-care (01) ==
LOC: NCHCN 13:14
PROVIDERS: PCP Nurse Practitioner Family; Visit Provider Nurse Practitioner Family
DX: H15.093 Other scleritis, bilateral
CPT/HCPCS: 86364

== ENCOUNTER 2024-06-01 14:59 | Outpatient (REF) | payer MEDICAID, SELFPAY ==
--- NOTE | 2024-06-01 11:20 | SKI_PTH ---
PATIENT: Kandi Mireles LOC: [facility]#:[id number] AGE/SX: 33/F ROOM: RE06/01/[address]: Jayne Durant : 1990 BED: DIS: 06/01/2024 SPEC #: [id number] RECD: 06/01/24 17:53 STATUS: FADUMO MORAES #: [id number] TONY: 06/01/24 11:[address]: Jayne Durant DEPT: Surgical Specimen RECD BY: Sunni Jung Tissues: 1 - SKIN BIOPSY(SHAVE/PUNCH) Procedures: SKIN LEVEL 4 Comments: [id number]
--- NOTE | 2024-06-01 11:30 | PAPFT_PTH ---
PATIENT: Kandi Mireles LOC: [facility]#:[id number] AGE/SX: 33/F ROOM: RE06/01/[address]: Jayne Durant : 1990 BED: DIS: 06/01/2024 SPEC #: [id number] RECD: 06/01/24 18:10 STATUS: FADUMO RENasrin #: [id number] TONY: 06/01/24 11:[address]: Jayne Durant DEPT: [facility] Cytology RECD BY: Sunni Jung Tissues: 1 - CX/ENDOCX FOR PAP SMEARS Procedures: PAP THIN PREP/UVM Screening HPV DNA PROBE Comments: [id number] (HPV 16 & 18/45)
== END 2024-06-01 15:00 | disposition home or self-care (01) ==
LOC: NCHCN 14:59
PROVIDERS: PCP Nurse Practitioner Family; Visit Provider Nurse Practitioner Family
DX: L98.9 Disorder of the skin and subcutaneous tissue, unspecified; Z11.51 Encounter for screening for human papillomavirus (HPV); Z01.419 Encounter for gynecological examination (general) (routine) without abnormal findings; D23.9 Other benign neoplasm of skin, unspecified
CPT/HCPCS: 88142; 87624; 88305

== ENCOUNTER 2024-06-25 00:16 | Outpatient (CLI) | payer MEDICAID, SELFPAY ==
--- NOTE | 2024-06-25 | DI.US_ITS ---
Exam(s) US PELVIS TRANSVAGINAL EXAM: US PELVIS TRANSVAGINAL CLINICAL HISTORY: IRREGULAR MENSTRATION N92.6 TECHNIQUE: Ultrasound of the pelvis was performed both transabdominal and transvaginal. COMPARISON: US PELVIS TRANSVAG from 08/17/2015 FINDINGS: UTERUS: Nongravid and anteverted Measures 8.3 cm length x 4.3 cm AP x 5.9 cm wide. There are no uterine fibroids. Endometrial thickness measures 5 mm. There is no fluid in the endometrial canal. CERVIX: There few small nabothian cysts in the cervix. RIGHT OVARY: Measures 4.3 x 3.2 x 2.0 cm There are 2 cysts in the right ovary measuring greater than 1 cm. The larger measures 3 x 1.5 x 1.5 cm. The other measures 1.5 x 1.5 x 1.0 cm. There are no solid lesions in the right ovary. There is a small amount of fluid adjacent to the right ovary in the right adnexal region. LEFT OVARY: Measures 2.6 x 1.4 x 2.1 cm Contains a single cyst measuring greater than 1 cm, measuring 1.1 x 1.0 cm. No solid lesions. IMPRESSION: 1. Normal appearing uterus and age-appropriate endometrium. 2. Two cysts in the right ovary measuring up to 3 cm. These have appearance of simple cysts. 3. There is a small amount of free fluid in the right adnexa adjacent to the right ovary. DATA REPOSITORY:
--- OUTSIDE RECORDS SUMMARY | 2024-06-25 00:21 | XMS_ITS | Encounter Summary ---
Author Organization [facility] Address [address] [place] [address] Care Team Providers Care Manager Lpn Name Role Phone Unknown, Provider Primary Care Provider Unava ilable Encounter Details Date Type Department Care Team (Latest Contact Info) Description 06/02/2024 Lab Requisition [facility] - [facility] [address] [place] [address] Jayne Durant FNP [address] [place] [address] [address] [place] [address] Encounter for gynecological examination (general) (routine) without abnormal findings; Encounter for screening for malignant neoplasm of cervix; Encounter for general adult medical examination without abnormal findings Social History Tobacco Use Types Packs/Day Years Used Date Smoking Tobacco: Never Smokeless Tobacco: Never Alcohol Use Standard Drinks/Week Comments Not Currently 0 (1 standard drink = 0.6 oz pur e alcohol) Interpersonal Safety Answer Date Record ed Physically Hurt Never 02/13/2020 Verbally Threaten Not on file 02/13/2020 Comments Unknown Sex and Gender Information Value Date Recorded Sex Assigned at Not on file Legal Sex Female 18:29 EST Gender Identity Female 08/01/2022 11:33 EST Sexual Orientation Not on file documented as of this encounter Functional Status * Because of a physical, mental, or emotional condition, does this person have difficulty doing errands alone such as visiting a doctor's office or shopping? Answer Date of Assessment Author No 08/29/2022 11:09 EST documented as of this encounter Mental Status * Because of a physical, mental, or emotional condition, does this person have serious difficulty concentrating, remembering, or making decisions? Answer Entry Date Author No 08/29/2022 11:09 EST documented in this encounter Plan of Treatment Upcoming Encounters Date Type Department Care Team (Late st Contact Info) Description 07/22/2024 14:00 EST Office Visit [facility] - [address] [id number] Luis Reich MD [address] [place] [address] documented as of this encounter Procedures Procedure Name Priority Date/Time Associated Diagnosis Comments PAP TEST Today 06/01/2024 11:30 EST Encounter for gynecological examination (general) (routine) without abnormal findings Encounter for screening for malignant neoplasm of cervix Encounter for general adult medical examination without abnormal findings HPV DNA DETECTION WITH GENOTYPING, PCR Today 06/01/2024 11:30 EST Encounter for gynecological examination (general) (routine) without abnormal findings Encounter for screening for malignant neoplasm of cervix Encounter for general adult medical examination without abnormal findings documented in this encounter Results * HPV DNA DETECTION WITH GENOTYPING, PCR (06/01/2024 11:30 EST) HPV High Risk type 16, PCR Negative Negative 06/14/2024 14:49 EST [facility] HPV High Risk type 18, PCR Negative Negative 06/14/2024 14:49 EST [facility] HPV other High Risk types, PCR Negative Negative 06/14/2024 14:49 EST [facility] Comment: The following Other High Risk HPV types were not detected: ??31,33, 35, 39, 45, 51, 52, 56, 58, 59, 66 and 68. Pap Test CERVIX UTERI STRUCTURE / Unknown 06/01/2024 11:30 EST 06/11/2024 13:47 EST Jayne SANCHEZ MICROBIOLOGY - GENERAL ORDERABLE S Final Result [facility] [address] [place] [address] * PAP TEST (06/01/2024 11:30 EST) Specimens A. Cervix and/or Endocervix , ThinPrep Imaging System with Manual Evaluation 06/14/2024 14:49 [facility] Specimen Adequacy Satisfactory for Evaluation - transformation zone component present 06/14/2024 14:49 [facility] General Categorization Negative for intraepithelial lesion or malignancy 06/14/2024 14:49 [facility] Descriptive Diagnosis Reactive cellular changes associated with inflammation present (includes repair). 06/14/2024 14:49 [facility] Educational Comments An additional slide was prepared and evaluated. 06/14/2024 14:49 [facility] Attestation By the signature below, the attending physician certifies that they have personally conducted a gross and/or microscopic examination of the described specimens and rendered or confirmed the above diagnosis. 06/14/2024 14:49 [facility] at 1449 Clinical History SEE BELOW 06/14/20 14:49 [facility] Performing Lab [facility] 06/14/2024 14:49 [facility] Scanned Images 06/14/2024 14:49 [facility] HPV High Risk type 16, PCR Negative 06/14/2024 14:49 [facility] HPV High Risk type 18, PCR Negative 06/14/2024 14:49 [facility] HPV Other High Risk Types, PCR Negative The following Other High Risk HPV types were not detected: 31,33, 35, 39, 45, 51, 52, 56, 58, 59, 66 and 68. 06/14/2024 14:49 [facility] Pap Test CERVIX UTERI STRUCTURE / Unknown 06/01/2024 11:30 EST 06/02/2024 13:44 EST Jayne SANCHEZ PATHOLOGY ORDERABLES Final Resul t [facility] [address] [place] [address] documented in this encounter Visit Diagnoses Diagnosis Encounter for gynecological examination (general) (routine) without abnormal findings Encounter for screening for malignant neoplasm of cervix Screening for malignant neoplasm of the cervix Encounter for general adult medical examination without abnormal findings Unspecified general medical examination documented in this encounter Care Teams Manager Lpn Relationship Specialty Start Date End Date Unknown, Provider, PCP - General 06/13/24 documented as of this encounter
--- OUTSIDE RECORDS SUMMARY | 2024-06-25 00:21 | XMS_ITS | Clinical Summary ---
Author Organization [facility] Address [address] [place] [address] Care Team Providers Care Vice President Global Digital Marketing Name Role Phone Unknown, Provider MD Primary Care Provider Unava ilable Allergies Active Allergy Reactions Criticality Noted Date Comments Cat Dander Low 01/12/2021 Pollen Extracts Medium 01/12/2021 Other reaction(s): runny nose, postnasal drip Medications vit no.129/iron/fol ic ( ONE DAILY ORAL) Take by mouth. Active fluticasone propionate (FLONASE) 50 mcg/actuation nasal spray Instill 1 [place] into both nostrils if needed for Other (congestion). 06/17/2023 Active indomethacin (INDOCIN) 25 mg capsule Take 1 Capsule by mouth 3 times daily. Take 1 capsule times a day for 7 days then stop. 21 Capsule 11 05/13/2024 Active Active Problems Problem Noted Date Diagnosed Date Episcleritis of both eyes 08/23/2022 Pain in joint 08/23/2022 Infertility, female 08/23/2022 Encounters Date Type Department Care Team Description 06/02/2024 Lab Requisition [facility] Pathology & Laboratory Medicine [address] [address] Jayne Durant FNP Encounter for gynecological examination (general) (routine) without abnormal findings; Encounter for screening for malignant neoplasm of cervix; Encounter for general adult medical examination without abnormal findings 06/02/2024 Lab Requisition [facility] Pathology & Laboratory [address] [address] Jayne Durant FNP Disorder of the skin and subcutaneous tissue, unspecified 05/12/2024 Refill [facility] Ophthalmology Main [place] [address] [place] [address] Luis Reich MD Medications Refill 04/20/2024 11:30 EDT Phlebotomy Only [facility] - Outpatient Phlebotomy Drawing [address] [place] [address] Lab, [facility] Op Phlebotomy Scleritis of left eye 04/20/2024 10:45 EDT Office Visit [facility] Rheumatology [address] [place] [address] Lopez Perrin MBBS Scleritis of left eye (Primary Dx) 04/15/2024 9:30 EDT Office Visit [address] [address] Luis Reich MD 04/05/2024 10:15 EDT Office Visit [address] [address] Delaney Reyes MD from Last 3 Months Surgical History Surgery Date Site/Laterality Comments IVF Family History Medical History Relation Comments Thyroid Disease Father Hypertension Mother Blindness Neg Hx Cataract Neg Hx Glaucoma Neg Hx Keratoconus Neg Hx Macular Degeneration Neg Hx Retinal Detachment Neg Hx Relation Status Comments Father Alive Mother Alive Social History Tobacco Use Types Packs/Day Years Used Date Smoking Tobacco: Never Smokeless Tobacco: Never Tobacco Cessation:Counseling Given: Not Answered Alcohol Use Standard Drinks/Week Comments Not Currently [...] 11:33 EST Sexual Orientation Not on file Obstetrics History Last Filed Vital Signs Vital Sign Reading Time Taken Comments Blood Pressure 112/74 04/20/2024 1053 EDT Pulse 64 04/20/2024 1053 EDT Temperature 36.8 ??C (98.2 ??F) 04/20/2024 1053 EDT Respiratory Rate - - Oxygen Saturation - - Inhaled Oxygen Concentration - - Weight 68.5 kg (151 lb) 04/20/2024 1053 EDT Height 170 cm (5' 6.93) 04/20/2024 1053 EDT Body Mass Index 23.7 04/20/2024 1053 EDT Plan of Treatment Upcoming Encounters Date Type Department Care Team (Late st Contact Info) Description 07/22/2024 14:00 EST Office Visit [facility] Ophthalmology - [facility] [address], [place] [id number] Luis Reich MD [address] [facility], [address] [place] [address] Health Maintenance Due Date Last Done Comments Hepatitis B Vaccine (1 of 3 - 19+ 3-dose series) 08/13 COVID-19 Vaccine ( season) 2024 Hepatitis C Screen Completed 01/17/2021 Procedures Procedure Name Priority Date/Time Associated Diagnosis [...] general adult medical examination without abnormal findings SURGICAL PATHOLOGY Today 06/01/2024 11 :20 EST Disorder of the skin and subcutaneous tissue, unspecified QUANTIFERON INTERPRETATION (PERFORMABLE) Today 04/20/2024 11:44 EDT Scleritis of left eye SED RATE Routine 04/20/2024 11:44 EDT Scleritis of left eye QUANTIFERON MITOGEN (PERFORMABLE) Routine 04/20/2024 11:44 EDT Scleritis of left eye QUANTIFERON TB2 (PERFORMABLE) Routine 04/20/2024 11:44 EDT Scleritis of left eye QUANTIFERON TB1 (PERFORMABLE) Routine 04/20/2024 11:44 EDT Scleritis of left eye QUANTIFERON NIL (PERFORMABLE) Routine 04/20/2024 11:44 EDT Scleritis of left eye CCP ANTIBODIES Routine 04/20/2024 11:44 EDT Scleritis of left eye C4 COMPLEMENT Routine 04/20/2024 11:44 EDT Scleritis of left eye C3 COMPLEMENT Routine 04/20/2024 11:44 EDT Scleritis of left eye ANCA VASCULITIS PROFILE IFA WITH MPO AND PR3 Routine 04/20/2024 11:44 EDT Scleritis of left eye QUANTIFERON TB GOLD PLUS Routine 04/20/2024 11:44 EDT Scleritis of left eye C REACTIVE PROTEIN Routine 04/20/2024 11 :44 EDT Scleritis of left eye COMPLETE BLOOD COUNT AND DIFFERENTIAL Routine 04/20/2024 11:44 EDT Scleritis of left eye COMPREHENSIVE METABOLIC PANEL (CMP) Routine 04/20/2024 11:44 EDT Scleritis of left eye RHEUMATOID SCREEN/TITRE Routine 04/20/2024 11:44 EDT Scleritis of left eye SYPHILIS RPR SCREEN W/REFLEX Routine 04/20/2024 11:44 EDT Scleritis of left eye HEPATITIS C AB W REFLEX TO HCV RNA BY PCR Routine 01/17/2021 9:45 EDT from Last 3 Months or Most Recently Relevant to Health Maintenance Results * PAP TEST (06/01/2024 11:30 EST) Specimens A. Cervix and/or Endocervix , ThinPrep Imaging System with Manual Evaluation 06/14/2024 14:49 [facility] Specimen Adequacy Satisfactory for Evaluation - transformation zone component present 06/14/2024 14:49 [facility] General Categorization Negative for intraepithelial lesion or malignancy 06/14/2024 14:49 [facility] Descriptive Diagnosis Reactive cellular changes associated with inflammation present (includes repair). 06/14/2024 14:49 [facility] Educational Comments An additional slide was prepared and evaluated. 06/14/2024 14:49 [facility] Attestation By the signature below, the attending physician certifies that they have personally conducted a gross and/or microscopic examination of the described specimens and rendered or confirmed the above diagnosis. 06/14/2024 14:49 [facility] at 1449 Clinical History SEE BELOW 06/14/20 14:49 [facility] Performing Lab [facility] 06/14/2024 14:49 [facility] Scanned Images 06/14/2024 14:49 [facility] HPV High Risk type 16, PCR Negative 06/14/2024 14:49 [facility] HPV High Risk type 18, PCR Negative 06/14/2024 14:49 [facility] HPV Other High Risk Types, PCR Negative The following Other High Risk HPV types were not detected: 31,33, 35, 39, 45, 51, 52, 56, 58, 59, 66 and 68. 06/14/2024 14:49 [facility] Pap Test CERVIX UTERI STRUCTURE / Unknown 06/01/2024 11:30 EST 06/02/2024 13:44 EST us Jayne GARCÍAP PATHOLOGY ORDERABLES Final Resul t [facility] [address] [place] [address] * HPV DNA DETECTION WITH GENOTYPING, PCR (06/01/2024 11:30 EST) HPV High Risk type 16, PCR Negative Negative 06/14/2024 14:49 EST [facility] HPV High Risk type 18, PCR Negative Negative 06/14/2024 14:49 [facility] HPV other High Risk types, PCR Negative Negative 06/14/2024 14:49 [facility] Comment: The following Other High Risk HPV types were not detected: ??31,33, 35, 39, 45, 51, 52, 56, 58, 59, 66 and 68. Pap Test CERVIX UTERI STRUCTURE / Unknown 06/01/2024 11:30 EST 06/11/2024 13:47 EST Jayne GARCÍAP MICROBIOLOGY - GENERAL ORDERABLE S Final Result [facility] [address] [place] [address] * SURGICAL PATHOLOGY (06/01/2024 11:20 EST) Note to Patient The following pathology results have been interpreted by your pathologist and may be available to you before your health provider has had the opportunity to review them. Please allow time for your provider to receive these results and explore management options, if applicable. 06/03/2024 10:36 [facility] Final Diagnosis A. SKIN OF WEISS, RIGHT, SHAVE BIOPSY: - Superficial portion of dermatofibroma. - Lesion is transected at biopsy base. 06/03/2024 10:36 [facility] Attestation By the signature below, the attending physician certifies that they have 1) personally conducted a gross and/or microscopic examination of the described specimen(s), and/or personally interpreted the results of laboratory testing of the described specimen(s), and 2) personally rendered or confirmed the above diagnosis. 06/03/2024 10:36 [facility] at 1036 Clinical History Intermittently crusting lesion on the weiss; clinical diagnosis code: L98.9 06/03/2024 10:36 [facility] Gross Description A. Received in formalin labelled with proper patient identification (initials C, S) and right weiss is a shave biopsy of pa skin (0.6 x 0.5 x 0.1 cm). The skin surface displays a white focally eroded low papule (0.4 x 0.3 cm). The margin is inked blue. The specimen is bisected and entirely submitted in A1. Yenni Church 06/02/2024 9:24 06/03/2024 10:36 [facility] Performing Lab [facility] 06/03/2024 10:36 [facility] Scanned Images 06/03/2024 10:36 [facility] Tissue SPECIMEN FROM SKIN / Unknown 06/01/2024 11:20 EST 06/02/2024 7:45 EST us Jayne Durant LOOM OPERATOR APPRENTICE PATHOLOGY ORDERABLES Final Resul t [facility] [address] [place] [address] * QUANTIFERON MITOGEN (PERFORMABLE) (04/20/2024 11:44 EDT) Blood VENOUS BLOOD / Unknown Venipuncture / Unknown 04/20/2024 11:44 EDT 04/20/2024 12:15 EDT Lopez PACHECO IMMUNOLOGY AND SEROLOGY ORDER KATTY Final Result [facility] [address] [place] [address] * QUANTIFERON TB2 (PERFORMABLE) (04/20/2024 11:44 EDT) Blood VENOUS BLOOD / Unknown Venipuncture / Unknown 04/20/2024 11:44 EDT 04/20/2024 12:14 EDT Lopez HALEY IMMUNOLOGY AND SEROLOGY ORDER KATTY Final Result Performing Organization Address City/[facility]/ZIP Co de Phone Number [facility] [address] [place] [address] * QUANTIFERON TB1 (PERFORMABLE) (04/20/2024 11:44 EDT) Blood VENOUS BLOOD / Unknown Venipuncture / Unknown 04/20/2024 11:44 EDT 04/20/2024 12:14 EDT Lopez HALEY IMMUNOLOGY AND SEROLOGY ORDER KATTY Final Result Performing Organization Address [facility] Co de Phone Number [facility] [address] [place] [id number] * QUANTIFERON NIL (PERFORMABLE) (04/20/2024 11:44 EDT) Blood VENOUS BLOOD / Unknown Venipuncture / Unknown 04/20/2024 11:44 EDT 04/20/2024 12:14 EDT Lopez HALEY IMMUNOLOGY AND SEROLOGY ORDER KATTY Final Result Performing Organization Address [facility] Co de Phone Number [facility] [address] [place] [phone] * QUANTIFERON INTERPRETATION (PERFORMABLE) (04/20/2024 11:44 EDT) [facility] Quantiferon Interpretation Negative Negative 04/21/2024 15:12 EDT [facility] Comment:No interferon-gamma response to M. tuberculosis antigens was detected. ??Infection with M. tuberculosis is unlikely. A single negative result does not exclude infection with M. tuberculosis. ??In patients at high risk for M. tuberculosis infection, a second test should be considered. TB1 Ag minus Nil 0.02 IU/ml 04/21/20 15:12 EDT [facility] TB2 Ag minus Nil 0.02 IU/mL 04/21/20 15:12 EDT [facility] Blood VENOUS BLOOD / Unknown Venipuncture / Unknown 04/20/2024 11:44 EDT 04/21/2024 15:07 EDT Lopez PACHECO IMMUNOLOGY AND SEROLOGY ORDER KATTY Final Result [facility] [address] [place] [address] * SYPHILIS RPR SCREEN W/REFLEX (04/20/2024 11:44 EDT) [facility] Rapid Plasma Reagin Screen (RPR) Nonreactive Nonreactive 04/22/2024 8:17 EDT [facility] Blood VENOUS BLOOD / Unknown Venipuncture / Unknown 04/20/2024 11:44 EDT 04/20/2024 12:08 EDT Lopez PACHECO IMMUNOLOGY AND SEROLOGY ORDER KATTY Final Result [facility] [address] [place] [id number] * RHEUMATOID SCREEN/TITRE (04/20/2024 11:44 EDT) [facility] Rheumatoid Factor <8.6 <12.0 IU/mL 04/20/2024 21:13 EDT [facility] Blood VENOUS BLOOD / Unknown Venipuncture / Unknown 04/20/2024 11:44 EDT 04/20/2024 12:10 EDT Lopez PACHECO CHEMISTRY & BLOOD GAS ORDERAB LES Final Result [facility] [address] [place] [address] * ANCA VASCULITIS PROFILE IFA WITH MPO AND PR3 (04/20/2024 11:44 EDT) [facility] Lab ANCA Interpretation Negative Negative 04/21/2024 13:33 EDT [facility] Comment: No titer performed, ANCA Screen is negative. Results were obtained with the [employer] NOVA Lite ANCA kit by indirect immunofluorescence. Myeloperoxidase Antibody, IgG <0.96 <6.00 IU/mL 04/21/2024 13:33 EDT [facility] Comment:Results were obtaine d with the [employer] Flash MPO chemiluminescent immunoassay. Values obtained with different manufacturers' assay methods must not be used interchangeably. The magnitude of the reported antibody levels cannot always be corrrelated to an endpoint titer. Proteinase 3 Antibody, IgG <0.6 <5.0 IU/mL 04/21/2024 13:33 EDT [facility] Comment:Results were obtaine d with the [employer] Flash PR3 chemiluminescent immunoassay. Values obtained with different manufacturers' assay methods must not be used interchangeably. The magnitude of the reported antibody levels cannot always be corrrelated to an endpoint titer. Blood VENOUS BLOOD / Unknown Venipuncture / Unknown 04/20/2024 11:44 EDT 04/20/2024 12:10 EDT Lopez Perrin [facility] IMMUN[facility] AND SEROLOGY ORDER KATTY Final Result Performing Organization Address City/[facility]/ZIP Co de Phone Number [facility] [address] [place] [address] * CCP ANTIBODIES (04/20/2024 11:44 EDT) CCP Antibodies <2.5 <5.0 U/mL 04/21/2024 9:50 EDT [facility] Blood VENOUS BLOOD / Unknown Venipuncture / Unknown 04/20/2024 11:44 EDT 04/20/2024 12:10 EDT Lopez Perrin [facility] SEROLOGY ORDER KATTY Final Result Performing Organization Address City/[facility]/ZIP Co de Phone Number [facility] [address] [place] [address] * SED RATE (04/20/2024 11:44 EDT) Sed Rate 9 0 - 20 mm/hr 04/20/2024 21:14 EDT [facility] Comment:Note: Sample greater than 4 hours old (but less than 12 hours) when tested. If refrigerated, sample is stable when tested within 12 hours of collection. Blood VENOUS BLOOD / Unknown Venipuncture / Unknown 04/20/2024 11:44 EDT 04/20/2024 12:29 EDT us Lopez PACHECO HEMATOLOGY & PF4 ORDERABLES F inal Result [facility] [address] [place] [address] * (ABNORMAL) COMPLETE BLOOD COUNT AND DIFFERENTIAL (04/20/2024 11:44 EDT) [facility] WBC 7.61 4.00 - 12.40 K/cmm 04/20/2024 12:15 [facility] RBC 4.39 3.86 - 5.04 M/cmm 04/20/2024 12:15 [facility] Hemoglobin 13.2 11.6 - 15.2 g/dL 04/20/2024 12:15 [facility] HCT 40.1 34.9 - 44.4 % 04/20/2024 12:15 [facility] MCV 91 81 - 98 fL 04/20/2024 12:15 [facility] MCH 30.1 26.7 - 33.3 pg 04/20/2024 12:15 [facility] MCHC 32.9 32.1 - 35.9 g/dL 04/20/2024 12:15 [facility] RDW-CV 12.0 <14.7 % 04/20/2024 12:15 [facility] RDW-SD 40.5 <50.4 fl 04/20/2024 12:15 [facility] PLT 345 141 - 377 K/cmm 04/20/2024 12:15 [facility] MPV 9.8 9.5 - 12.7 fL 04/20/2024 12:15 [facility] % Neutrophils 55.7 Not Indicated % 04/20/2024 12:15 [facility] % Lymphocytes 33.2 Not Indicated % 04/20/2024 12:15 [facility] % Monocytes 5.3 Not Indicated % 04/20/2024 12:15 [facility] % Eosinophils 3.8 Not Indicated % 04/20/2024 12:15 [facility] % Basophils 1.7 Not Indicated % 04/20/2024 12:15 [facility] % Immature Grans 0.3 <0.9 % 04/20/2024 12:15 [facility] Absolute Neutrophils 4.24 2.20 - 8.85 K/cmm 04/20/2024 12:15 [facility] Absolute Lymphocytes 2.53 1.09 - 3.30 K/cmm 04/20/2024 12:15 [facility] Absolute Monocytes 0.40 0.10 - 0.80 K/cmm 04/20/2024 12:15 [facility] Absolute Eosinophils 0.29 0.03 - 0.61 K/cmm 04/20/2024 12:15 [facility] ABS Basophils 0.13(H) 0.01 - 0.11 K/cmm 04/20/2024 12:15 [facility] Absolute Immature Grans 0.02 0.00 - 0.06 K/cmm 04/20/2024 12:15 [facility] Type of Differential: Auto 04/20/2024 12:15 [facility] Blood VENOUS BLOOD / Unknown Venipuncture / Unknown 04/20/2024 11:44 EDT 04/20/2024 12:13 EDT Lopez PACHECO PACKAGES & DNA PROBE ORDERABL ES Final Result [facility] [address] [place] [address] * C3 COMPLEMENT (04/20/2024 11:44 EDT) C3 Complement 106 81 - 157 mg/dL 04/21/2024 10:08 EDT [facility] Blood VENOUS BLOOD / Unknown Venipuncture / Unknown 04/20/2024 11:44 EDT 04/20/2024 12:10 EDT Lopez PACHECO CHEMISTRY & BLOOD GAS ORDERAB LES Final Result Performing Organization Address City/[facility]/ZIP Co de Phone Number [facility] [address] [place] [address] * C4 COMPLEMENT (04/20/2024 11:44 EDT) C4 Complement 21 13 - 39 mg/dL 04/21/2024 10:08 EDT [facility] Blood VENOUS BLOOD / Unknown Venipuncture / Unknown 04/20/2024 11:44 EDT 04/20/2024 12:10 EDT Lopez PACHECO CHEMISTRY & BLOOD GAS ORDERAB LES Final Result Performing Organization Address City/[facility]/ZIP Co de Phone Number [facility] [address] [place] [address] * C REACTIVE PROTEIN (04/20/2024 11:44 EDT) C-Reactive Protein <5.0 <10.0 mg/L 04/20/2024 12:56 EDT [facility] Blood VENOUS BLOOD / Unknown Venipuncture / Unknown 04/20/2024 11:44 EDT 04/20/2024 12:08 EDT us Lopez PACHECO CHEMISTRY & BLOOD GAS ORDERAB LES Final Result [facility] [address] [place] [address] * COMPREHENSIVE METABOLIC PANEL (CMP) (04/20/2024 11:44 EDT) Sodium 139 136 - 145 mmol/L 04/20/2024 12:56 [facility] Potassium 4.4 3.5 - 5.0 mmol/L 04/20/2024 12:56 [facility] Chloride 102 96 - 110 mmol/L 04/20/2024 12:56 [facility] CO2 Total 29 22 - 32 mmol/L 04/20/2024 12:56 [facility] Glucose 83 70 - 99 mg/dl 04/20/2024 12:56 [facility] BUN 12 10 - 26 mg/dL 04/20/2024 12:56 [facility] Creatinine 0.67 0.52 - 1.04 mg/dL 04/20/2024 12:56 [facility] eGFR 119 >60 mL/min/1.7 3m2 04/20/2024 12:56 [facility] Total Protein 7.4 6.3 - 8.2 g/dL 04/20/2024 12:56 [facility] Albumin 4.7 3.4 - 4.9 g/dL 04/20/2024 12:56 [facility] Alkaline Phosphatase 60 38 - 126 U/L 04/20/2024 12:56 [facility] AST 25 15 - 46 U/L 04/20/2024 12:56 [facility] ALT 18 <35 U/L 04/20/2024 12:56 [facility] Bilirubin, Total 0.8 <1.4 mg/dL 04/20/20 12:56 [facility] Calcium 9.8 8.5 - 10.5 mg/dL 04/20/2024 12:56 EDT [facility] Albumin/Globulin Ratio 1.7 1.0 - 2.5 04/20/2024 12:56 EDT [facility] Anion Gap 8 5 - 14 mmol/L 04/20/2024 12:56 EDT [facility] Blood VENOUS BLOOD / Unknown Venipuncture / Unknown 04/20/2024 11:44 EDT 04/20/2024 12:08 EDT us Lopez PACHECO CHEMISTRY & BLOOD GAS ORDERAB LES Final Result [facility] [address] [place] [address] * HEPATITIS C AB W REFLEX TO HCV RNA BY PCR (01/17/2021 9:45 EDT) Hep C Antibody Negative Negative 01/18/2021 10:21 EDT [facility] Blood VENOUS BLOOD / Unknown 01/17/2021 9:45 EDT 01/17/2021 15:57 EDT us Provider Outr Resulting Lab CHEMISTRY & BLOOD GA S ORDERABLES Final Result [facility] [address] [place] [address] from Last 3 Months or Most Recently Relevant to Health Maintenance [place] Care Teams Vice President Global Digital Marketing Relationship Specialty Start Date End Date Unknown, Provider, PCP - General 06/13/24
--- OUTSIDE RECORDS SUMMARY | 2024-06-25 00:21 | XMS_ITS | Encounter Summary ---
Author Organization [facility] Address [address] [place] [address] Care Team Providers Care Spanish Linguist Name Role Phone Unknown, Provider Primary Care Provider Luma ildanielle Encounter Details Date Type Department Care Team (Late st Contact Info) Description 06/02/2024 Lab Requisition [facility] Pathology & Laboratory Medicine - [facility] [address] [place] [address] Jayne Durant FNP [address] [facility] [address] [place] [address] Disorder of the skin and subcutaneous tissue, unspecified Social History Tobacco Use Types Packs/Day Years [...] Info) Description 07/22/2024 14:00 EST Office Visit [facility] Ophthalmology - [facility] [address] [place] [address] Luis Reich MD [address] [facility], [address] [place] [address] documented as of this encounter Procedures Procedure Name Priority Date/Time Associated Diagnosis Comments SURGICAL PATHOLOGY Today 06/01/2024 11 :20 EST Disorder of the skin and subcutaneous tissue, unspecified documented in this encounter Results * SURGICAL PATHOLOGY (06/01/2024 11:20 EST) Note to Patient The following pathology results have been interpreted by your pathologist and may be available to you before your health provider has had the opportunity to review them. Please allow time for your provider to receive these results and explore management options, if applicable. 06/03/2024 10:36 [facility] Final Diagnosis A. SKIN OF WEISS, RIGHT, SHAVE BIOPSY: - Superficial portion of dermatofibroma. - Lesion is transected at biopsy base. 06/03/2024 10:36 [facility] Attestation By the signature below, the attending physician certifies that they have 1) personally conducted a gross and/or microscopic examination of the described specimen(s), and/or personally interpreted the results of laboratory testing of the described specimen(s), and 2) personally rendered or confirmed the above diagnosis. 06/03/2024 10:36 [facility] at 1036 Clinical History Intermittently crusting lesion on the weiss; clinical diagnosis code: L98.9 06/03/2024 10:36 [facility] Gross Description A. Received in [...] A1. Yenni Church 06/02/2024 9:24 06/03/2024 10:36 EST [facility] Performing Lab [facility] 06/03/2024 10:36 EST [facility] Scanned Images 06/03/2024 10:36 EST [facility] Tissue SPECIMEN FROM SKIN / Unknown 06/01/2024 11:20 EST 06/02/2024 7:45 EST Jayne SANCHEZ PATHOLOGY ORDERABLES Final Resul t [facility] [address] [place] [address] documented in this encounter Visit Diagnoses Diagnosis Disorder of the skin and subcutaneous tissue, unspecified documented in this encounter Care Teams Spanish Linguist Relationship Specialty Start Date End Date Unknown, Provider, PCP - General 06/13/24 documented as of this encounter
--- OUTSIDE RECORDS SUMMARY | 2024-06-25 00:21 | XMS_ITS | Referral Summary ---
Author Organization [facility] Address [address] [place] [address] Care Team Providers Care Group Rooms Coordinator Name Role Phone Unknown, Provider Primary Care Provider Unava ilable Encounters Date Type Department Care Team Description 06/02/2024 Lab Requisition [facility] Pathology & Laboratory Medicine [address] [address] Jayne Durant FNP Encounter for gynecological examination (general) (routine) without abnormal findings; Encounter for screening for malignant neoplasm of cervix; Encounter for general adult medical examination without abnormal findings 06/02/2024 Lab Requisition [facility] Pathology & Laboratory Medicine [address] [address] Jayne Durant FNP Disorder of the skin and subcutaneous tissue, unspecified 05/12/2024 Refill [facility] Ophthalmology [address] [address] Luis Reich MD Medications Refill 04/20/2024 11:30 EDT Phlebotomy Only [facility] - Outpatient Phlebotomy Drawing [address] [place] [address] [place], [facility] [place] Scleritis of left eye 04/20/2024 10:[address] [facility] Rheumatology [address] [place] [address] Lopez Perrin MBBS Scleritis of left eye (Primary Dx) 04/15/2024 9:30 EDT Office Visit [facility] Ophthalmology [address] [address] Luis Reich MD 04/05/2024 10:15 EDT Office Visit [facility] Ophthalmology - Main [address] [address] Delaney Reyes MD from Last 3 Months Allergies Active Allergy Reactions Criticality Noted Date Comments Cat Dander Low 01/12/2021 Pollen Extracts Medium 01/12/2021 Other reaction(s): runny nose, postnasal drip Medications vit no.129/iron/fol ic ( ONE DAILY ORAL) Take by mouth. Active fluticasone propionate (FLONASE) 50 mcg/actuation nasal spray Instill 1 [place] into both nostrils if needed for Other (congestion). 06/17/2023 Active indomethacin (INDOCIN) 25 mg capsule Take 1 Capsule by mouth 3 times daily. Take 1 capsule times a day for 7 days then stop. 21 Capsule 11 05/13/2024 Active Active Problems Problem Noted Date Diagnosed Date Episcleritis of both eyes 08/23/2022 Pain in joint 08/23/2022 Infertility, female 08/23/2022 Social History Tobacco Use Types Packs/Day Years [...] 11:33 EST Sexual Orientation Not on file Last Filed Vital Signs Vital Sign Reading [...] Body Mass Index 23.7 04/20/2024 1053 EDT Functional Status * Because of a physical, mental, or emotional condition, does this person have difficulty doing errands alone such as visiting a doctor's office or shopping? Answer Date of Assessment Author No 08/29/2022 11:09 EST Mental Status * Because of a physical, mental, or emotional condition, does this person have serious difficulty concentrating, remembering, or making decisions? Answer Entry Date Author No 08/29/2022 11:09 EST Plan of Treatment Upcoming Encounters Date Type Department Care Team (Late st Contact Info) Description 07/22/2024 14:00 EST Office Visit [facility] Ophthalmology - [address] [address] Luis Reich MD [address] [facility], [address] [place] [address] Procedures Procedure Name Priority Date/Time Associated Diagnosis [...] Imaging System with Manual Evaluation 06/14/2024 14:49 [facility] Specimen Adequacy Satisfactory for Evaluation - transformation zone component present 06/14/2024 14:49 [facility] General Categorization Negative for intraepithelial lesion or malignancy 06/14/2024 14:49 [facility] Descriptive Diagnosis Reactive cellular changes associated with inflammation present (includes repair). 06/14/2024 14:49 [facility] Educational Comments An additional slide was prepared and evaluated. 06/14/2024 14:49 [facility] Attestation By the signature below, the attending physician certifies that they have personally conducted a gross and/or microscopic examination of the described specimens and rendered or confirmed the above diagnosis. 06/14/2024 14:49 [facility] at 1449 Clinical History SEE BELOW 06/14/20 14:49 [facility] Performing Lab [facility] 06/14/2024 14:49 [facility] Scanned Images 06/14/2024 14:49 [facility] HPV High Risk type 16, PCR Negative 06/14/2024 14:49 [facility] HPV High Risk type 18, PCR Negative 06/14/2024 14:49 [facility] HPV Other High Risk Types, PCR Negative The following Other High Risk HPV types were not detected: 31,33, 35, 39, 45, 51, 52, 56, 58, 59, 66 and 68. 06/14/2024 14:49 [facility] Pap Test CERVIX UTERI STRUCTURE / Unknown 06/01/2024 11:30 EST 06/02/2024 13:44 EST Jayne Durant USED CAR LOT ATTENDANT PATHOLOGY ORDERABLES Final Resul t [facility] [address] [place] [address] * HPV DNA DETECTION WITH GENOTYPING, PCR (06/01/2024 11:30 EST) HPV High Risk type 16, PCR Negative Negative 06/14/2024 14:49 [facility] HPV High Risk type 18, PCR Negative Negative 06/14/2024 14:49 [facility] HPV other High Risk types, PCR Negative Negative 06/14/2024 14:49 [facility] Comment: The following Other High Risk HPV types were not detected: ??31,33, 35, 39, 45, 51, 52, 56, 58, 59, 66 and 68. Pap Test CERVIX UTERI STRUCTURE / Unknown 06/01/2024 11:30 EST 06/11/2024 13:47 EST Jayne GARCÍAP MICROBIOLOGY - GENERAL ORDERABLE S Final Result [facility] [address] [place] [address] * SURGICAL PATHOLOGY (06/01/2024 11:20 EST) Note to Patient The following pathology results have been interpreted by your pathologist and may be available to you before your health provider has had the opportunity to review them. Please allow time for your provider to receive these results and explore management options, if applicable. 06/03/2024 10:36 [facility] Final Diagnosis A. SKIN OF WEISS, RIGHT, SHAVE BIOPSY: - Superficial portion of dermatofibroma. - Lesion is transected at biopsy base. 06/03/2024 10:36 [facility] Attestation By the signature below, the attending physician certifies that they have 1) personally conducted a gross and/or microscopic examination of the described specimen(s), and/or personally interpreted the results of laboratory testing of the described specimen(s), and 2) personally rendered or confirmed the above diagnosis. 06/03/2024 10:36 [facility] at 1036 Clinical History Intermittently crusting lesion on the weiss; clinical diagnosis code: L98.9 06/03/2024 10:36 [facility] Gross Description A. [...] A1. Yenni Church 06/02/2024 9:24 06/03/2024 10:36 [facility] Performing Lab [facility] 06/03/2024 10:36 [facility] Scanned Images 06/03/2024 10:36 [facility] Tissue SPECIMEN FROM SKIN / Unknown 06/01/2024 11:20 EST 06/02/2024 7:45 EST Jayne GARCÍAP PATHOLOGY ORDERABLES Final Resul t [facility] [address] [place] [id number] * QUANTIFERON MITOGEN (PERFORMABLE) (04/20/2024 11:44 EDT) Blood VENOUS BLOOD / Unknown Venipuncture / Unknown 04/20/2024 11:44 EDT 04/20/2024 12:15 EDT Lopez PACHECO IMMUNOLOGY AND SEROLOGY ORDER KATTY Final Result [facility] [address] [place] [id number] * QUANTIFERON TB2 (PERFORMABLE) (04/20/2024 11:44 EDT) Blood VENOUS BLOOD / Unknown Venipuncture / Unknown 04/20/2024 11:44 EDT 04/20/2024 12:14 EDT Lopez HALEY IMMUNOLOGY AND SEROLOGY ORDER KATTY Final Result Performing Organization Address City/[facility]/ZIP Co de Phone Number [facility] [address] [place] [phone] * QUANTIFERON TB1 (PERFORMABLE) (04/20/2024 11:44 EDT) Blood VENOUS BLOOD / Unknown Venipuncture / Unknown 04/20/2024 11:44 EDT 04/20/2024 12:14 EDT Lopez Perrin [facility] ORDER KATTY Final Result Performing Organization Address [facility] Co de Phone Number [facility] [address] [place] [phone] * QUANTIFERON NIL (PERFORMABLE) (04/20/2024 11:44 EDT) Blood VENOUS BLOOD / Unknown Venipuncture / Unknown 04/20/2024 11:44 EDT 04/20/2024 12:14 EDT Lopez HALEY IMMUNOLOGY AND SEROLOGY ORDER KATTY Final Result Performing Organization Address [facility] de Phone Number [facility] [address] [place] [phone] * QUANTIFERON INTERPRETATION (PERFORMABLE) (04/20/2024 11:44 EDT) [facility] Quantiferon Interpretation Negative Negative 04/21/2024 15:12 EDT [facility] Comment:No interferon-gamma response to M. tuberculosis antigens was detected. ??Infection with M. tuberculosis is unlikely. A single negative result does not exclude infection with M. tuberculosis. ??In patients at high risk for M. tuberculosis infection, a second test should be considered. TB1 Ag minus Nil 0.02 IU/ml 04/21/20 15:12 EDT [facility] TB2 Ag minus Nil 0.02 IU/mL 04/21/20 15:12 EDT [facility] Blood VENOUS BLOOD / Unknown Venipuncture / Unknown 04/20/2024 11:44 EDT 04/21/2024 15:07 EDT Lopez PACHECO IMMUNOLOGY AND SEROLOGY ORDER KATTY Final Result Performing Organization Address City/[facility]/ZIP Co de Phone Number [facility] [address] [place] [address] * SYPHILIS RPR SCREEN W/REFLEX (04/20/2024 11:44 EDT) [facility] Rapid Plasma Reagin Screen (RPR) Nonreactive Nonreactive 04/22/2024 8:17 EDT [facility] Blood VENOUS BLOOD / Unknown Venipuncture / Unknown 04/20/2024 11:44 EDT 04/20/2024 12:08 EDT Lopez PACHECO IMMUNOLOGY AND SEROLOGY ORDER KATTY Final Result [facility] [address] [place] [address] * RHEUMATOID SCREEN/TITRE (04/20/2024 11:44 EDT) [facility] Rheumatoid Factor <8.6 <12.0 IU/mL 04/20/2024 21:13 EDT [facility] Blood VENOUS BLOOD / Unknown Venipuncture / Unknown 04/20/2024 11:44 EDT 04/20/2024 12:10 EDT Lopez PACHECO CHEMISTRY & BLOOD GAS ORDERAB LES Final Result [facility] [address] [place] [address] * ANCA VASCULITIS PROFILE IFA WITH MPO AND PR3 (04/20/2024 11:44 EDT) [facility] Lab ANCA Interpretation Negative Negative 04/21/2024 13:33 EDT [facility] Comment: No titer performed, ANCA Screen is negative. Results were obtained with the [employer] / Ped[employer] Lite ANCA kit by indirect immunofluorescence. Myeloperoxidase Antibody, IgG <0.96 <6.00 IU/mL 04/21/2024 13:33 EDT [facility] Comment:Results were obtaine d with the [employer] Flash MPO chemiluminescent immunoassay. Values obtained with different manufacturers' assay methods must not be used interchangeably. The magnitude of the reported antibody levels cannot always be corrrelated to an endpoint titer. Proteinase 3 Antibody, IgG <0.6 <5.0 IU/mL 04/21/2024 13:33 EDT [facility] Comment:Results were obtaine d with the [employer] Flash PR3 chemiluminescent immunoassay. Values obtained with different manufacturers' assay methods must not be used interchangeably. The magnitude of the reported antibody levels cannot always be corrrelated to an endpoint titer. Blood VENOUS BLOOD / Unknown Venipuncture / Unknown 04/20/2024 11:44 EDT 04/20/2024 12:10 EDT Lopez Perrin [facility] ORDER KATTY Final Result Performing Organization Address City/[facility]/ZIP Co de Phone Number [facility] [address] [place] [address] * CCP ANTIBODIES (04/20/2024 11:44 EDT) [facility] Signature CCP Antibodies <2.5 <5.0 U/mL 04/21/2024 9:50 EDT [facility] Blood VENOUS BLOOD / Unknown Venipuncture / Unknown 04/20/2024 11:44 EDT 04/20/2024 12:10 EDT Lopez Perrin [facility] ORDER KATTY Final Result [facility] [address] [place] [phone] * SED RATE (04/20/2024 11:44 EDT) Pathologist [facility] Sed Rate 9 0 - 20 mm/hr 04/20/2024 21:14 EDT [facility] Comment:Note: Sample greater than 4 hours old (but less than 12 hours) when tested. If refrigerated, sample is stable when tested within 12 hours of collection. Blood VENOUS BLOOD / Unknown Venipuncture / Unknown 04/20/2024 11:44 EDT 04/20/2024 12:29 EDT us Lopez PACHECO HEMATOLOGY & PF4 ORDERABLES F inal Result [facility] [address] [place] [address] * (ABNORMAL) COMPLETE BLOOD COUNT AND DIFFERENTIAL (04/20/2024 11:44 EDT) [facility] WBC 7.61 4.00 - 12.40 K/cmm 04/20/2024 12:15 [facility] RBC 4.39 3.86 - 5.04 M/cmm 04/20/2024 12:15 [facility] Hemoglobin 13.2 11.6 - 15.2 g/dL 04/20/2024 12:15 [facility] HCT 40.1 34.9 - 44.4 % 04/20/2024 12:15 [facility] MCV 91 81 - 98 fL 04/20/2024 12:15 [facility] MCH 30.1 26.7 - 33.3 pg 04/20/2024 12:15 [facility] MCHC 32.9 32.1 - 35.9 g/dL 04/20/2024 12:15 [facility] RDW-CV 12.0 <14.7 % 04/20/2024 12:15 [facility] RDW-SD 40.5 <50.4 fl 04/20/2024 12:15 [facility] PLT 345 141 - 377 K/cmm 04/20/2024 12:15 [facility] MPV 9.8 9.5 - 12.7 fL 04/20/2024 12:15 [facility] % Neutrophils 55.7 Not Indicated % 04/20/2024 12:15 [facility] % Lymphocytes 33.2 Not Indicated % 04/20/2024 12:15 [facility] % Monocytes 5.3 Not Indicated % 04/20/2024 12:15 [facility] % Eosinophils 3.8 Not Indicated % 04/20/2024 12:15 [facility] % Basophils 1.7 Not Indicated % 04/20/2024 12:15 [facility] % Immature Grans 0.3 <0.9 % 04/20/2024 12:15 [facility] Absolute Neutrophils 4.24 2.20 - 8.85 K/cmm 04/20/2024 12:15 [facility] Absolute Lymphocytes 2.53 1.09 - 3.30 K/cmm 04/20/2024 12:15 [facility] Absolute Monocytes 0.40 0.10 - 0.80 K/cmm 04/20/2024 12:15 [facility] Absolute Eosinophils 0.29 0.03 - 0.61 K/cmm 04/20/2024 12:15 [facility] ABS Basophils 0.13(H) 0.01 - 0.11 K/cmm 04/20/2024 12:15 [facility] Absolute Immature Grans 0.02 0.00 - 0.06 K/cmm 04/20/2024 12:15 [facility] Type of Differential: Auto 04/20/2024 12:15 [facility] Blood VENOUS BLOOD / Unknown Venipuncture / Unknown 04/20/2024 11:44 EDT 04/20/2024 12:13 EDT Lopez PACHECO PACKAGES & DNA PROBE ORDERABL ES Final Result [facility] [address] [place] [address] * C3 COMPLEMENT (04/20/2024 11:44 EDT) C3 Complement 106 81 - 157 mg/dL 04/21/2024 10:08 EDT [facility] Blood VENOUS BLOOD / Unknown Venipuncture / Unknown 04/20/2024 11:44 EDT 04/20/2024 12:10 EDT Lopez PACHECO CHEMISTRY & BLOOD GAS ORDERAB LES Final Result Performing Organization Address City/[facility]/ZIP Co de Phone Number [facility] [address] [place] [address] * C4 COMPLEMENT (04/20/2024 11:44 EDT) C4 Complement 21 13 - 39 mg/dL 04/21/2024 10:08 EDT [facility] Blood VENOUS BLOOD / Unknown Venipuncture / Unknown 04/20/2024 11:44 EDT 04/20/2024 12:10 EDT Lopez PACHECO CHEMISTRY & BLOOD GAS ORDERAB LES Final Result Performing Organization Address City/[facility]/ZIP Co de Phone Number [facility] [address] [place], [place] [id number] * C REACTIVE PROTEIN (04/20/2024 11:44 EDT) C-Reactive Protein <5.0 <10.0 mg/L 04/20/2024 12:56 EDT [facility] Blood VENOUS BLOOD / Unknown Venipuncture / Unknown 04/20/2024 11:44 EDT 04/20/2024 12:08 EDT Lopze PACHECO CHEMISTRY & BLOOD GAS ORDERAB LES Final Result [facility] [address] [place] [address] * COMPREHENSIVE METABOLIC PANEL (CMP) (04/20/2024 11:44 EDT) Sodium 139 136 - 145 mmol/L 04/20/2024 12:56 [facility] Potassium 4.4 3.5 - 5.0 mmol/L 04/20/2024 12:56 [facility] Chloride 102 96 - 110 mmol/L 04/20/2024 12:56 [facility] CO2 Total 29 22 - 32 mmol/L 04/20/2024 12:56 [facility] Glucose 83 70 - 99 mg/dl 04/20/2024 12:56 [facility] BUN 12 10 - 26 mg/dL 04/20/2024 12:56 [facility] Creatinine 0.67 0.52 - 1.04 mg/dL 04/20/2024 12:56 [facility] eGFR 119 >60 mL/min/1.7 3m2 04/20/2024 12:56 [facility] Total Protein 7.4 6.3 - 8.2 g/dL 04/20/2024 12:56 [facility] Albumin 4.7 3.4 - 4.9 g/dL 04/20/2024 12:56 [facility] Alkaline Phosphatase 60 38 - 126 U/L 04/20/2024 12:56 [facility] AST 25 15 - 46 U/L 04/20/2024 12:56 [facility] ALT 18 <35 U/L 04/20/2024 12:56 [facility] Bilirubin, Total 0.8 <1.4 mg/dL 04/20/20 12:56 [facility] Calcium 9.8 8.5 - 10.5 mg/dL 04/20/2024 12:56 EDT [facility] Albumin/Globulin Ratio 1.7 1.0 - 2.5 04/20/2024 12:56 EDT [facility] Anion Gap 8 5 - 14 mmol/L 04/20/2024 12:56 EDT [facility] Blood VENOUS BLOOD / Unknown Venipuncture / Unknown 04/20/2024 11:44 EDT 04/20/2024 12:08 EDT Lopez PACHECO CHEMISTRY & BLOOD GAS ORDERAB LES Final Result [facility] [address] [place], [place] [id number] * HEPATITIS C AB W REFLEX TO HCV RNA BY PCR (01/17/2021 9:45 EDT) Hep C Antibody Negative Negative 01/18/2021 10:21 EDT [facility] Blood VENOUS BLOOD / Unknown 01/17/2021 9:45 EDT 01/17/2021 15:57 EDT us Provider Outr Resulting Lab CHEMISTRY & BLOOD GA S ORDERABLES Final Result [facility] [address] [place] [address] from Last 3 Months or Most Recently Relevant to Health Maintenance Insurance [place] Care Teams Group Rooms Coordinator Relationship Specialty Start Date End Date Unknown, Provider, PCP - General 06/13/24
--- OUTSIDE RECORDS SUMMARY | 2024-06-25 00:21 | XMS_ITS | Encounter Summary ---
Author Organization [facility] Address [address] [place] [address] Care Team Providers Care Outpatient Scheduler Name Role Phone Unavailable Primary Care Provider Unavailabl e Reason for Visit * Reason Onset Date Comments Medications Refill 05/12/2024 Encounter Details Date Type Department Care Team (Late st Contact Info) Description 05/12/2024 Refill [facility] Ophthalmology - [address] [address] Luis Reich MD [address] [place] [address], [address] [place] [address] Medications Refill Social History Tobacco Use Types Packs/Day Years [...] 08/29/2022 11:09 EST documented in this encounter Ordered Prescriptions Prescription Sig Dispense Quantity Refills Last Filled Start Date End Date indomethacin (INDOCIN) 25 mg capsule Take 1 Capsule by mouth 3 times daily. Take 1 capsule times a day for 7 days then stop. 21 Capsule 11 05/13/2024 documented in this encounter Miscellaneous Notes * Telephone Encounter - Francheska Lee - 05/12/2024 1138 EDT Pt calling for refill of indomethacin. Per SMP note of 04/15 She will continue using indomethacin on a prn basis as she is using the medication now, to treat recurrences of eye inflammation. Francheska Lee 05/12/2024 11:41 documented in this encounter Plan of Treatment Upcoming Encounters Date Type Department Care Team (Late st Contact Info) Description 07/22/2024 14:00 EST Office Visit [facility] Ophthalmology - [address] [id number] Luis Reich MD [address] [place] [address], [address] [place] [address] documented as of this encounter Visit Diagnoses Not on filedocumented in this encounter Discontinued Medications Medication Sig Discontinue Reason Start Date End Da te indomethacin (INDOCIN) 25 mg capsule Take 1 Capsule by mouth 3 times daily. Take 1 capsule times a day for 7 days then stop. Reorder 04/05/2024 05/12/2024 documented as of this encounter
--- OUTSIDE RECORDS SUMMARY | 2024-06-25 00:21 | XMS_ITS | Encounter Summary ---
Author Organization [facility] Address [facility] [place] [address] Care Team Providers Care Talent Acquisition Administrator Name Role Phone Jayne Durant CHAD Primary Care Provider [phone] Reason for Visit * Reason Comments Ultrasound * Consultation (Routine) - Closed Specialty Diagnoses / Procedures Referred By Bill t Referred To Contact Obstetrics and Gynecology Diagnoses IVF CONCEPTION, LOW LYING PLACENTA Lucinda Palma, [address] [place] [address] [facility] [employer] [address] [place] [address] Referral ID Status Reason Start Date Expiration Date V isits Requested Visits Authorized [id number] Closed Consult, Test & Treat Connection Center PCP Updated and/or Approved 03/21/2021 03/21/2022 6 6 Encounter Details Date Type Department Care Team (Late st Contact Info) Description 04/17/2021 11:00 AM EDT Office Visit Obstetrics [place] [address] Eduardo Mcgee MD [facility] DR OBSTETRICS [place] [address] with history of infertility in second trimester Social History Tobacco Use Types Packs/Day Years Used Date Smoking Tobacco: Never Smokeless Tobacco: Never Comments Yes Sex and Gender Information Value Date Recorded Sex Assigned at Not on file Gender Identity Not on file Sexual Orientation Not on file documented as of this encounter Last Filed Vital Signs Vital Sign Reading Time Taken Comments Blood Pressure 100/60 04/17/2021 10:03 AM EDT Pulse - - Temperature - - Respiratory Rate - - Oxygen Saturation - - Inhaled Oxygen Concentration - - Weight 72.8 kg (160 lb 8 oz) 04/17/2021 10:03 AM EDT Height 170.2 cm (5' 7) 04/17/2021 10:03 AM EDT Body Mass Index 25.14 04/17/2021 10:03 AM EDT documented in this encounter Progress Notes * Eduardo Mcgee MD - 04/17/2021 11:00 AM EDT Diagnosis/Maternal Medicine Consult Note Kandi Mireles is a 30 y.o. year old female who is at 25w4d gestation. She is seen in consultation at the request of Lucinda Palma CNM for evaluation due to resulting from IVF. She previously opted for cell free DNA screening, which revealed a low risk of aneuploidy (<1:10,000 for trisomies 21, 18 and 13). She was returns today for ultrasound evaluation. Review of Systems Constitutional:feels well Movement: normal Contractions: none Leaking: None Bleeding: None I reviewed the patient's medical, surgical and family history and updated it as appropriate. I alsoreviewed and updated as appropriate her allergies and medications. I reviewed her record and ultrasound reports to date. Ultrasound Date: 04/17/2021 Amniotic fluid volume normal Presentation breech Placenta anterior; no placenta previa; no evidence of low lying placenta Growth appropriate for gestational age anatomy appears within normal limits. Physical Exam There were no vitals taken for this visit. General: alert, well appearing, in no apparent distress, oriented to person, place and time HEENT: normocephalic, atraumatic Abdomen: Soft, non-tender, gravid Neurologic:alert, oriented, normal speech, no focal findings or movement disorder noted Psychiatric: Affect is Appropriate. Assessment and Recommendations: 30 y.o. year old female at 25w4d weeks gestation, referred for survey due to history of in-vitro fertilization. Low risk NIPT and normal appearing survey. No evidence of low lying placenta. I appreciate the opportunity to be involved in this patients care, and am available if further questions should arise. Eduardo MCGEE MD 04/17/2021 Cc: Lucinda Palma, [address] [place] [address] , with copy of ultrasound report documented in this encounter Plan of Treatment Not on file documented as of this encounter Visit Diagnoses Diagnosis with history of infertility in second trimester documented in this encounter Care Teams Talent Acquisition Administrator Relationship Specialty Start Date End Date Jayne Durant APRN [address] [place] [address] PCP - General Family Medicine 03/21/21 documented as of this encounter
--- OUTSIDE RECORDS SUMMARY | 2024-06-25 00:21 | XMS_ITS | Clinical Summary ---
Author Organization [facility] [place] [address] Care Team Providers Care Router Machine Operator Name Role Phone Bhargav Jayne CHAD Primary Care Provider [phone] Allergies Active Allergy Reactions Criticality Noted Date Comments Cat Dander Low 01/12/2021 Pollen Extracts Medium 01/12/2021 Other reaction(s): runny nose, postnasal drip Medications Medication Sig Dispensed Refills Start Date End Date Status [id number] ACID ORAL Take by mouth. 07/04/2017 Active Active Problems Problem Noted Date Diagnosed Date resulting from in vitro fertilization 04/17/2021 Social History Tobacco Use Types Packs/Day Years Used Date Smoking Tobacco: Never Smokeless Tobacco: Never Sex and Gender Information Value Date Recorded Sex Assigned at Not on file Gender Identity Not on file Sexual Orientation Not on file Last Filed [...] Mass Index 25.14 04/17/2021 10:03 AM EDT Plan of Treatment Health Maintenance Due Date Last Done Comments HIV screen 2009 Hepatitis C Screening 2009 Hepatitis B vaccine (0-59 yrs) (1) 2010 Tetanus/Diphtheria/Pertussis Vaccines (1 - Tdap) 08/13 HPV test 2021 PAP Smear 2021 Covid-19 Vaccine ( - 2023- season) 2024 Influenza (Flu) vaccine (1 o f 1 - Influenza standard series) 03/14/2024 Care Teams Router Machine Operator Relationship Specialty Start Date End Date Jayne Durant APRN [address] [place] [address] PCP - General Family Medicine 03/21/21
--- OUTSIDE RECORDS SUMMARY | 2024-06-25 00:21 | XMS_ITS | Encounter Summary ---
[place] [address] Care Team Providers Care Apprentice Cosmetologist Name Role Phone BhargavJayne CHAD Primary Care Provider [phone] Reason for Referral * Diagnostic Test (Routine) - Closed Specialty Diagnoses / Procedures Referred By Bill richards Referred To Contact Radiology Diagnoses Abnormal ultrasound Procedures US OB Detailed Morphology Ben Palma CNM [address] [place] [address] [address] [place] [address] [place] [address] Referral ID Status Reason Start Date Expiration Date V isits Requested Visits Authorized [id number] Closed Specialty Service Requested 03/27/2021 09/24/2022 1 1 Reason for Visit * Diagnostic Test (Routine) - Closed Specialty Diagnoses / Procedures [facility] Referred To Contact Radiology Diagnoses Abnormal ultrasound Procedures US OB Detailed Morphology Ben Palma CNM [address] [place] [address] [address] [place] [address] [place] [address] Referral ID Status Reason Start Date Expiration Date V isits Requested Visits Authorized [id number] Closed Specialty Service Requested 03/27/2021 09/24/2022 1 1 Encounter Details Date Type Department Care Team (Latest Contact Info) Description 04/17/2021 9:06 AM EDT - 04/17/2021 11:59 PM EDT Hospital [place] [phone] Ben Palma CNM [address] [place] [address] [address] [place] [address] Abnormal ultrasound Discharge Disposition: Home Social History Tobacco Use Types Packs/Day Years Used Date Smoking Tobacco: Never Smokeless Tobacco: Never Comments Yes Sex and Gender Information Value Date Recorded Sex Assigned at Not on file Gender Identity Not on file Sexual Orientation Not on file documented as of this encounter Medications at Time of Discharge Medication Sig Dispensed Refills Start Date End Date [id number] ACID ORAL Take by mouth. 07/04/2017 documented as of this encounter Plan of Treatment Not on file documented as of this encounter Procedures Procedure Name Priority Date/Time Associated Diagnosis Comments US OB DETAILED MORPHOLOGY Routine 04/17/2021 9:54 AM EDT Abnormal ultrasound documented in this encounter Results * US OB Detailed Morphology (04/17/2021 9:54 AM EDT) Anatomical Region Laterality Modality Pelvis, Abdomen Ultrasound 04/17/2021 9:07 AM EDT Impressions 04/17/2021 11:07 AM EDT 2nd Trimester - Detailed Morphology - Summary Single intrauterine with a gestational age of 25w 4d based on Embryo Transfer ??(11/08/20). Composite age based on the current ultrasound alone is 25w 1d. Current growth parameters are consistent with prior dating indicating normal growth. Amniotic fluid volume is subjectively normal for gestational age. Detailed anatomic evaluation was performed and no structural abnormalities are noted. No sonographic evidence of a low lying placenta. Thank you for letting us participate in the care of this patient. If you are a health care provider and have any questions regarding this report, please contact the number above. For patients who have questions, please contact the health career development coordinator/teacher that requested your imaging first. ? Lowell Mcgee, Staff Physician Electronically Signed Final Report ?? 04/17/2021 11:06 am Narrative 04/17/2021 11:07 AM EDT OBSTETRICS REPORT ?(Signed Final 04/17/2021 11:06 am) PATIENT INFO: ID #: ? [id number] ?: ??[birth year] (30 yrs)(Jeni) Name: ? ROSHAN MIRELES ? Visit Date: 04/17/2021 09:07 am PERFORMED BY: Performed By: ? Lina Tony RDMS Attending: ?oLwell Mcgee MD Referred By: ?BEN PALMA Location: ? [place] SERVICE(S) PROVIDED: [facility] - Detailed Morphology - [id number] ? [id number] INDICATIONS: 25 weeks gestation of ?Z3A.25 IVF CONCEPTION; LOW LYING PLACENTA; TARGETED MORPHOLOGY VITAL SIGNS: Weight (lb): 157.0 Height: ?5'7 ? BMI: ? 24.59 EVALUATION: Num Of Fetuses: ? 1 Heart Rate(bpm): ??150 Cardiac Activity: ? Observed, normal rhythm Presentation: ? Breech Placenta: ? Anterior P. Cord Insertion: ?Within Normal Limits Amniotic Fluid YUSEF FV: ?Subjectively normal for gestational age --------- BIOMETRY: --------- BPD: ?60.8 ??mm ? G.Age: ?? 24w 5d ?17 ??% OFD: ?84.4 ??mm HC: ?233.2 ??mm ? G.Age: ?? 25w 2d ?21 ??% AC: ?199.7 ??mm ? G.Age: ?? 24w 4d ?16 ??% FL: ? 47.5 ??mm ? G.Age: ?? 25w 6d ?46 ??% HUM: ?45.0 ??mm ? G.Age: ?? 26w 5d ?71 ??% CER: ?27.9 ??mm ? G.Age: ?? 25w 0d ?40 ??% NB: ?5.9 ??mm LV: ?4.5 ??mm CM: ?7.8 ??mm CI: ?72.0 ??% ? 70 - 86 FL/HC: ? 20.4 ??% ? 18.6 - 20.4 HC/AC: ? 1.17 ?1. - 08.04 FL/BPD: ?78.1 ??% ? 71 - 87 FL/AC: ? 23.8 ??% ? - Est. FW: ? 776 ??gm ?1 lb 11 oz ? 62 ??% OB HISTORY: : ?4 ?SAB: ?? 3 GESTATIONAL AGE: Clinical SUGEY: ??25w 4d ?SUGEY: ?? 07/27/21 U/S Today: ? 25w 1d ?SUGEY: ?? 07/30/21 Best: ?25w 4d ?? Det. By: ??Embryo ? SUGEY: ?? 07/27/21 ? Transfer ? (11/08/20) TARGETED ANATOMY: Central Nervous System Calvarium/Cranial V.: ??Within Normal Limits Intracranial Holly: ? Visualized Cavum: ? Visualized Parenchyma: ?Visualized Lateral Ventricles: ?Within Normal Limits Choroid Plexus: ?Visualized Cereb./Vermis: ? Within Normal Limits Cisterna Magna: ?Within Normal Limits Midline Falx: ?Visualized Spine Cervical: ?Visualized Thoracic: ?Visualized Lumbar: ?Visualized Sacral: ?Visualized Shape/Curvature: ? Visualized Head/Neck Face: ?Visualized Lips: ?Visualized Neck: ?Visualized Nuchal Fold: ? Not evaluated at this Nasal Bone: ?Present Profile: ? Visualized Orbits/Eyes: ? Visualized Mandible: ?Visualized Maxilla: ? Visualized Thorax Thoracic Contour: ?Visualized Lungs: ? Visualized 4 Chamber View: ?Visualized Cardiac Activity: ?Normal Rhythm Rt Outflow Tract: ?Visualized Lt Outflow Tract: ?Visualized Aortic Arch: ? Visualized Ductal Arch: ? Visualized SVC: ? Visualized Interventr. Septum: ?Visualized Cardiac Maud: ?Visualized Diaphragm: ? Visualized 3 Vessel View: ? Visualized 3 V Trachea View: ?Visualized IVC: ? Visualized Crossing: ?Visualized Abdomen Ventral Wall: ?Visualized Cord Insertion: ?Visualized Situs: ? Normal Stomach: ? Visualized Liver: ? Visualized Lt Kidney: ? Visualized Rt Kidney: ? Visualized Bladder: ? Visualized Bowel: ? Visualized Extremities Lt Humerus: ?Visualized Rt Humerus: ?Visualized Lt Forearm: ?Visualized Rt Forearm: ?Visualized Lt Hand: ? Visualized Rt Hand: ? Visualized Lt Femur: ?Visualized Rt Femur: ?Visualized Lt Lower Leg: ?Visualized Rt Lower Leg: ?Visualized Lt Foot: ? Visualized Rt Foot: ? Visualized Other Umbilical Cord: ?3 vessel cord Genitalia: ? Female CERVIX UTERUS ADNEXA: Right Ovary Size(cm) ? 3.6 ??x ?? 2.2 ?x ??2.5 ? Vol(ml): 10.4 Enlarged due to IVF stimulation Left Ovary Size(cm) ? 2.4 ??x ?? 1.8 ?x ??2.1 ? Vol(ml): 4.8 Visualized Procedure Note Eduardo Mcgee MD - 04/17/2021 OBSTETRICS REPORT (Signed Final 04/17/2021 11:06 am) PATIENT INFO: ID #: [id number] : [birth year] (30 yrs)(F) Name: ROSHAN MIRELES Visit Date: 04/17/2021 09:07 am PERFORMED BY: Performed By: Lina Tony RDMS Attending: Lowell Mcgee MD Referred By: BEN PALMA Location: [place] SERVICE(S) PROVIDED: [facility] - Detailed Morphology - [id number] INDICATIONS: 25 weeks gestation of Z3A.25 IVF CONCEPTION; LOW LYING PLACENTA; TARGETED MORPHOLOGY VITAL SIGNS: Weight (lb): 157.0 Height: 5'7 BMI: 24.59 EVALUATION: Num Of Fetuses: 1 Heart Rate(bpm): 150 Cardiac Activity: Observed, normal rhythm Presentation: Breech Placenta: Anterior P. Cord Insertion: Within Normal Limits Amniotic Fluid YUSEF FV: Subjectively normal for gestational age --------- BIOMETRY: --------- BPD: 60.8 mm G.Age: 24w 5d 17 % OFD: 84.4 mm HC: 233.2 mm G.Age: 25w 2d 21 % AC: 199.7 mm G.Age: 24w 4d 16 % FL: 47.5 mm G.Age: 25w 6d 46 % HUM: 45.0 mm G.Age: 26w 5d 71 % CER: 27.9 mm G.Age: 25w 0d 40 % NB: 5.9 mm LV: 4.5 mm CM: 7.8 mm CI: 72.0 % 70 - 86 FL/HC: 20.4 % 18.6 - 20.4 HC/AC: 1.17 1.04 - 1.22 FL/BPD: 78.1 % 71 - 87 FL/AC: 23.8 % 20 - 24 Est. FW: 776 gm 1 lb 11 oz 62 % OB HISTORY: : 4 SAB: 3 GESTATIONAL AGE: Clinical SUGEY: 25w 4d SUGEY: 07/27/21 U/S Today: 25w 1d SUGEY: 07/30/21 Best: 25w 4d Det. By: Embryo SUGEY: 07/27/21 Transfer (11/08/20) TARGETED ANATOMY: Central Nervous System Calvarium/Cranial V.: Within Normal Limits Intracranial Holly: Visualized Cavum: Visualized Parenchyma: Visualized Lateral Ventricles: Within Normal Limits Choroid Plexus: Visualized Cereb./Vermis: Within Normal Limits Cisterna Magna: Within Normal Limits Midline Falx: Visualized Spine Cervical: Visualized Thoracic: Visualized Lumbar: Visualized Sacral: Visualized Shape/Curvature: Visualized Head/Neck Face: Visualized Lips: Visualized Neck: Visualized Nuchal Fold: Not evaluated at this Nasal Bone: Present Profile: Visualized Orbits/Eyes: Visualized Mandible: Visualized Maxilla: Visualized Thorax Thoracic Contour: Visualized Lungs: Visualized 4 Chamber View: Visualized Cardiac Activity: Normal Rhythm Rt Outflow Tract: Visualized Lt Outflow Tract: Visualized Aortic Arch: Visualized Ductal Arch: Visualized SVC: Visualized Interventr. Septum: Visualized Cardiac Maud: Visualized Diaphragm: Visualized 3 Vessel View: Visualized 3 V Trachea View: Visualized IVC: Visualized Crossing: Visualized Abdomen Ventral Wall: Visualized Cord Insertion: Visualized Situs: Normal Stomach: Visualized Liver: Visualized Lt Kidney: Visualized Rt Kidney: Visualized Bladder: Visualized Bowel: Visualized Extremities Lt Humerus: Visualized Rt Humerus: Visualized Lt Forearm: Visualized Rt Forearm: Visualized Lt Hand: Visualized Rt Hand: Visualized Lt Femur: Visualized Rt Femur: Visualized Lt Lower Leg: Visualized Rt Lower Leg: Visualized Lt Foot: Visualized Rt Foot: Visualized Other Umbilical Cord: 3 vessel cord Genitalia: Female CERVIX UTERUS ADNEXA: Right Ovary Size(cm) 3.6 x 2.2 x 2.5 Vol(ml): 10.4 Enlarged due to IVF stimulation Left Ovary Size(cm) 2.4 x 1.8 x 2.1 Vol(ml): 4.8 Visualized IMPRESSION 2nd Trimester - Detailed Morphology - Summary Single intrauterine with a gestational age of 25w 4d based on Embryo Transfer (11/08/20). Composite age based on the current ultrasound alone is 25w 1d. Current growth parameters are consistent with prior dating indicating normal growth. Amniotic fluid volume is subjectively normal for gestational age. Detailed anatomic evaluation was performed and no structural abnormalities are noted. No sonographic evidence of a low lying placenta. Thank you for letting us participate in the care of this patient. If you are a health care provider and have any questions regarding this report, please contact the number above. For patients who have questions, please contact the health career development coordinator/teacher that requested your imaging first. Lowell Mcgee, Staff Physician Electronically Signed Final Report 04/17/2021 11:06 am Ben Palma CNM IMG OB ORDERABLE S documented in this encounter Visit Diagnoses Diagnosis Abnormal ultrasound Abnormal findings on screening documented in this encounter Care Teams Apprentice Cosmetologist Relationship Specialty Start Date End Date Jayne Durant APRN [address] [place] [address] PCP - General Family Medicine 03/21/21 documented as of this encounter
--- OUTSIDE RECORDS SUMMARY | 2024-06-25 00:22 | XMS_ITS | Encounter Summary ---
Author Organization [facility] Address [address] [place] [address] Care Team Providers Care Informatics Spec Name Role Phone Bianca Snow MD Primary Care Provider Unavailabl e Unknown, Provider Primary Care Provider Unava ilable Encounter Details Date Type Department Care Team (Late st Contact Info) Description 01/17/2021 Lab Requisition [facility] Pathology & Laboratory Medicine - [address] [id number] Outr Resulting Lab, Provider Social History Tobacco Use Types Packs/Day Years Used Date Smoking Tobacco: Never Assessed Interpersonal Safety Answer Date Record ed Physically Hurt Never 02/13/2020 Verbally Threaten Not on file 02/13/2020 Comments Unknown Sex and Gender Information Value Date Recorded Sex Assigned at Not on file Legal Sex Female 18:29 EST Gender Identity Female 08/01/2022 11:33 EST Sexual Orientation Not on file documented as of this encounter Plan of Treatment Upcoming Encounters Date Type Department Care Team (Late st Contact Info) Description 07/22/2024 14:00 EST Office Visit [facility] Ophthalmology - [address] [id number] Luis Reich MD [address] [place] [address], [address] [place] [address] documented as of this encounter Procedures Procedure Name Priority Date/Time Associated Diagnosis Comments HIV 1/2 ANTIGEN AND ANTIBODY, 4TH GENERATION Routine 01/17/2021 9:45 EDT documented in this encounter Results * HIV 1/2 ANTIGEN AND ANTIBODY, 4TH GENERATION (01/17/2021 9:45 EDT) HIV 1 and 2 Antibody/p24 Antigen, 4th Generation Negative Negative 01/18/2021 10:54 EDT [facility] Comment: If acute HIV-1 infection is suspected in a high risk ??patient, submit plasma specimen for HIV-1 RNA quantitation test. Fourth Generation assay performed on the [employer]. Blood VENOUS BLOOD / Unknown 01/17/2021 9:45 EDT 01/17/2021 15:47 EDT us Provider Outr Resulting Lab IMMUNOLOGY AND SEROL OGY ORDERABLES Final Result [facility] [address] [place] [address] documented in this encounter Visit Diagnoses Not on filedocumented in this encounter Care Teams Informatics Spec Relationship Specialty Start Date End Date Bianca Snow MD PCP - General 08/12/17 05/03/24 Unknown, MD Olga PCP - General 06/13/24 documented as of this encounter
--- OUTSIDE RECORDS SUMMARY | 2024-06-25 00:22 | XMS_ITS | Encounter Summary ---
Author Organization [facility] Address [address] [place] [address] Care Team Providers Care Math Interventionist Name Role Phone Bianca Snow MD Primary Care Provider Unavailabl e Reason for Visit * Reason Comments Eye Problem Encounter Details Date Type Department Care Team (Late st Contact Info) Description 04/05/2024 10:15 EDT Office Visit [facility] Ophthalmology - [address] [address] Delaney Reyes MD [address] [place] [address], [address] [place] [address] Social History Tobacco Use Types Packs/Day Years [...] for 7 days then stop. 21 Capsule 04/05/2024 4 documented in this encounter Progress Notes * Delaney Reyes MD - 04/05/2024 1015 EDT Chief Complaint Patient presents with Eye Problem HPI episcleritis left eye--no drops-- enomethocin not for few weeks-- vision is ok-- Pain no -- HPI The patient is a 33 y.o. female seen in follow up for recurrent Scleritis left eye. She has had multiple episodes consistent with scleritis rather than episcleritis. IT was been responsive to indomethacin. No use of drops. Finished Indomethacin 2 weeks ago. No eye pain. Vision stable, no changes. Redness has resolved. ROS Constitutional: NL ENT/Mouth NL Cardiovascular: NL Respiratory: NL Gastrointestinal: NL Genitourinary: Musculoskeletal: NL Integumentary: Neurologic: NL Psychiatric: Endocrine: NL Hematologic: Immunologic: NL Packing Machine Tender: Exposures: Other: Attestation: Allergies include: Pollen extracts and Cat dander Patient Active Problem List Diagnosis Episcleritis of both eyes Pain in joint Infertility, female Outpatient Medications Marked as Taking for the 04/05/24 encounter (Office Visit) with Delaney Reyes MD Medication Sig fluticasone propionate (FLONASE) 50 mcg/actuation nasal spray Instill 1 [place] into both nostrils ifneeded for Other (congestion). indomethacin (INDOCIN) 25 mg capsule Take 1 Capsule by mouth 3 times daily. vit no.129/iron/folic ( ONE DAILY ORAL) Take by mouth. Base Eye Exam Visual Acuity (Snellen - Linear) Right Left Dist sc 20/20 20/20 -2 Pupils Dark Light Shape React APD Right 4 3 Round Brisk None Left 4 3 Round Brisk None Visual Swann Right Left Full Full Extraocular Movement Right Left Full, Ortho Full, Ortho Neuro/Psych Oriented x3: Yes Mood/Affect: Normal Slit Lamp and Fundus Exam External Exam Right Left External Normal Normal Slit Lamp Exam Right Left Lids/Lashes Normal Normal Conjunctiva/Sclera White and quiet Trace conj hyperemia Cornea Clear Pannus formation Anterior Chamber Deep and quiet Deep and quiet Iris Normal Normal Lens Clear Clear Fundus Exam Right Left Disc Intact Rim Intact Rim C/D Ratio 0.3 0.3 DIAGNOSTIC TESTS: IMPRESSION & PLAN: Encounter Diagnosis Name Primary? Scleritis of left eye Yes 1. Scleritis of left eye Episodes of recurrent scleritis in the left eye. Now with scarring of the cornea--recommend eval with Dr. Reich. She has a follow up scheduled in the next couple of weeks to discuss potential systemic suppressivetreatment given the presence of scarring and the frequency of episodes. I scribing for Delaney Reyes MD, while she is personally performing the service. Loyda Rivers, MORRIS, 04/05/2024 10:35 I have reviewed the patient's past medical, family, social and surgical history. I have also reviewed the patient's medications, allergies, and problem list. I performed my own HPI and have reviewed the tech's ROS as well. I personally completed this exam myself. Delaney Reyes MD documented in this encounter Plan of Treatment Upcoming Encounters Date Type Department Care Team (Late st Contact Info) Description 07/22/2024 14:00 EST Office Visit [facility] Ophthalmology - [address] [id number] Luis Reich MD [address] [place] [address], [address] [place] [address] documented as of this encounter Visit Diagnoses Diagnosis Scleritis of left eye- Primary Scleritis, unspecified documented in this encounter Discontinued Medications Medication Sig Discontinue Reason Start Date End Da te indomethacin (INDOCIN) 25 mg capsule Take 1 Capsule by mouth 3 times daily. 03/13/2024 04/05/2024 indomethacin (INDOCIN) 25 mg capsule Take 1 Capsule by mouth 3 times daily. Take 1 capsule times a day for 7 days then stop. Reorder 08/04/2023 04/05/2024 documented as of this encounter Eye Exam Visual Acuity (Snellen - Linear) Right eye Left eye Dist sc 20/20 20/20 -2 Pupils Dark Light Shape React APD Right eye 4 3 Round Brisk None Left eye 4 3 Round Brisk None Visual Swann Right eye Left eye Full Full Extraocular Movement Right eye Left eye Full, Ortho Full, Ortho Neuro/Psych Oriented x3: Yes Mood/Affect: Normal External Exam Right eye Left eye External Normal Normal Slit Lamp Exam Right eye Left eye Lids/Lashes Normal Normal Conjunctiva/Sclera White and quiet Trace conj hy peremia Cornea Clear Pannus formation Anterior Chamber Deep and quiet Deep and quiet Iris Normal Normal Lens Clear Clear Fundus Exam Right eye Left eye Disc Intact Rim Intact Rim C/D Ratio 0.3 0.3 Care Teams Math Interventionist Relationship Specialty Start Date End Date Bianca nSow MD PCP - General 08/12/17 05/03/24 documented as of this encounter
--- OUTSIDE RECORDS SUMMARY | 2024-06-25 00:22 | XMS_ITS | Encounter Summary ---
Author Organization [facility] Address [address] [place] [address] Care Team Providers Care Supervisor Display Fabrication Name Role Phone Bianca Snow MD Primary Care Provider Unavailabl e Unknown, Provider Primary Care Provider Unava ilable Encounter Details Date Type Department Care Team (Late st Contact Info) Description 01/17/2021 Lab Requisition [facility] Pathology & Laboratory Medicine - [address] [id number] Outr Resulting Lab, Provider Social History Tobacco [...] Info) Description 07/22/2024 14:00 EST Office Visit [facility] Ophthalmology - [address] [phone] Luis Reich MD [address] [place] [address], [address] [place] [address] documented as of this encounter Procedures Procedure Name Priority Date/Time Associated Diagnosis Comments HEPATITIS C AB W REFLEX TO HCV RNA BY PCR Routine 01/17/2021 9:45 EDT HEPATITIS B SURFACE ANTIGEN Routine 01/17/2021 9:45 EDT documented in this encounter Results * HEPATITIS B SURFACE ANTIGEN (01/17/2021 9:45 EDT) Hep B Surface Ag Negative Negative 01/18/2021 10:03 EDT [facility] Blood VENOUS BLOOD / Unknown 01/17/2021 9:45 EDT 01/17/2021 15:47 EDT us Provider Outr Resulting Lab CHEMISTRY & BLOOD GA S ORDERABLES Final Result [facility] [address] [place] [address] * HEPATITIS C AB W REFLEX TO HCV RNA BY PCR (01/17/2021 9:45 EDT) Hep C Antibody Negative Negative 01/18/2021 10:21 EDT [facility] Blood VENOUS BLOOD / Unknown 01/17/2021 9:45 EDT 01/17/2021 15:57 EDT us Provider Outr Resulting Lab CHEMISTRY & BLOOD GA S ORDERABLES Final Result [facility] [address] [place] [address] documented in this encounter Visit Diagnoses Not on filedocumented in this encounter Care Teams Supervisor Display Fabrication Relationship Specialty Start Date End Date Bianca Snow MD PCP - General 08/12/17 05/03/24 Unknown, MD Olga PCP - General 06/13/24 documented as of this encounter
--- OUTSIDE RECORDS SUMMARY | 2024-06-25 00:22 | XMS_ITS | Encounter Summary ---
Author Organization [facility] Address [address] [place] [address] Care Team Providers Care Slip Filler Name Role Phone Myron Henry MD Primary Care Provider [phone] Encounter Details Date Type Department Care Team (Late st Contact Info) Description 11/09/2013 Results Only [facility] Laboratory Services - [facility] ([facility]) [address] [place], [place] [address] Angelica Stover, [address] [place] [phone] Social History Tobacco Use Types Packs/Day Years Used Date Smoking Tobacco: Never Assessed Comments Unknown Sex and Gender Information Value Date Recorded Sex Assigned at Not on file Legal Sex Female 18:29 EST Gender Identity Female 08/01/2022 11:33 EST Sexual Orientation Not on file documented as of this encounter Plan of Treatment Upcoming Encounters Date Type Department Care Team (Late st Contact Info) Description 07/22/2024 14:00 EST Office Visit [facility] Ophthalmology - [facility] [address] [place], [place] [address] Luis Reich MD [address] [facility], [address] [place] [address] documented as of this encounter Procedures Procedure Name Priority Date/Time Associated Diagnosis Comments PAP TEST- RESULT ONLY Routine 11/09/2013 0:00 EDT documented in this encounter Results * PAP TEST- RESULT ONLY (11/09/2013 0:00 EDT) Pathology Report: CYTOPATHOLOGY REPORT Reports generated via electronic interface contain original data; however they are lacking the format of the original report. Caution should be taken when reading/interpreti ng unformatted reports. Name: ? ROSHAN MIRELES ? Accession #: ? [id number] : ? 1990 (Age: 23) ??F ?Collect Date: ? 11/09/2013 Location: ? [facility] ? Receive Date: ? 11/10/2013 Provider: ?ANGELICA STOVER ADMITTING CLERK Copy to: ? Specimen/Source: ?Pap Test, Cervix/Endocervix, ThinPrep Imaging System with manual evaluation Last Menstrual Period: ? Hormonal/Contracep tive Status: ? Intrauterine device: mirena Previous Gynecologic Pathology: ? ASC-US: pap 2010 ? SPECIMEN ADEQUACY ? Satisfactory for Evaluation - transformation zone component present GENERAL CATEGORIZATION ? Negative for Intraepithelial Lesion or Malignancy ? Document reviewed and electronically signed by: ? RENETTA Huang(ASCP) ? Report Date: ??11/19/2013 09:24 End of Report [facility] 11/09/2013 11/10/2013 us Angelica Stover ADMITTING CLERK PATHOLOGY ORDERABLES Final R esult [facility] [address] [place] [address] documented in this encounter Visit Diagnoses Not on filedocumented in this encounter Care Teams Slip Filler Relationship Specialty Start Date End Date Myron Henry MD [address] [place] [address] [place] [address] PCP - General 07/27/10 08/11/17 documented as of this encounter
--- OUTSIDE RECORDS SUMMARY | 2024-06-25 00:22 | XMS_ITS | Encounter Summary ---
Author Organization [facility] Address [address] [place] [address] Care Team Providers Care Calender Machine Operator Name Role Phone Bianca Snow MD Primary Care Provider Unavailabl e Reason for Visit * Reason Comments Eye Problem * Consult (Routine/Next Available) - Authorization Not Required Specialty Diagnoses / Procedures Referred By Bill richards Referred To Contact Ophthalmology Diagnoses Positive WILMA (antinuclear antibody) Episcleritis of left eye Lopez Perrin MB[employer] Phone: tel: fax: [address] [address] Phone: tel: fax: Referral ID Status Reason Start Date Expiration Date Visits Requested Visits Authorized [id number] Authorization Not Required Specialty Services Required 09/11/2022 1 1 Encounter Details Date Type Department Care Team (Late st Contact Info) Description 01/06/2023 8:45 EDT Office Visit [facility] Ophthalmology [address] [phone] Delaney Reyes MD [address] [place] [address], [facility] [address] [place] [address] Social History Tobacco Use Types Packs/Day Years Used Date Smoking Tobacco: Never Smokeless Tobacco: Never Tobacco Cessation:Counseling Given: Not Answered Interpersonal Safety Answer Date Record ed Physically [...] 08/29/2022 11:09 EST documented in this encounter Progress Notes * Delaney Reyes MD - 01/06/2023 0845 EDT Chief Complaint Patient presents with ??? Eye Problem HPI NPV seen at the request of Dr. Perrin for eval of recurrent Episcleritis left eye x past 5-6+ years which is relieved by topical steroids and Ibuprofen. She has had in both eyes but more left. Episodes have been happening monthly and symptoms are consistent with redness, swelling of eye, soreness, EOM's are sore. Vision seems fine, no changes x years. No tearing normally. No flashes and few rare floaters. No eye pain generally. She is WILMA positive since 08/2022. JAN: 08/2022, [facility] [place] no hx of eye surg/trauma. HPI The patient is a 32 y.o. female NPV seen at the request of Dr. Perrin for eval of recurrent Episcleritis left eye x past 5-6+ years which is relieved by topical steroids and Ibuprofen. Most recent episode was in September. She has had in both eyes but more left. Episodes have been happening monthly and symptoms are consistent with redness, swelling of eye, soreness, EOM's are sore. Vision seems fine, no changes x years. No tearing normally. No flashes and few rare floaters. No eye pain generally. She is WILMA positive since 08/2022. JAN: 08/2022, [facility] in [place] no hx of eye surg/trauma. ROS Constitutional: NL ENT/Mouth NL Cardiovascular: NL Respiratory: NL Gastrointestinal: NL Genitourinary: NL Musculoskeletal: NL Integumentary: NL Neurologic: NL Psychiatric: NL Endocrine: NL Hematologic: NL Immunologic: NL Field Technical Support Consultant: NL Exposures: None Other: Attestation: Allergies include: Pollen extracts and Cat dander Patient Active Problem List Diagnosis ??? Episcleritis of both eyes ??? Pain in joint ??? Infertility, female Outpatient Medications Marked as Taking for the 01/06/23 encounter (Office Visit) with Delaney Reyes MD Medication Sig ??? cholecalciferol, Vitamin D3, 25 mcg (1,000 unit) tablet Take 1 Tablet by mouth daily. ??? predniSONE (DELTASONE) 5 mg tablet Take 2 Tablets by mouth daily. ??? vit no.129/iron/folic ( ONE DAILY ORAL) Take by mouth. Base Eye Exam Visual Acuity (Snellen - Linear) Right Left Dist sc 20/20 20/20 Tonometry (Applanation, 9:09) Right Left Pressure 17 16 Pupils Dark Light Right 4.5 3.5 Left 4.5 3.5 Visual Swann Right Left Full Full Extraocular Movement Right Left Full, Ortho Full, Ortho Neuro/Psych Oriented x3: Yes Mood/Affect: Normal Dilation Both eyes: Tropicamide 1%, Phenylephrine 2.5% @ 9:23 Additional Tests Color Right Left [place]ara 12/12 12/12 Slit Lamp and Fundus Exam External Exam Right Left External Normal Normal Slit Lamp Exam Right Left Lids/Lashes Normal Normal Conjunctiva/Sclera White and quiet trace conj hyperemia Cornea Clear micropannus formation Anterior Chamber Deep and quiet Deep and quiet Iris Normal Normal Lens Clear Clear Anterior Vitreous Normal Normal Fundus Exam Right Left Disc Intact Rim Intact Rim C/D Ratio 0.2 0.3 Macula Normal Normal Vessels Normal Normal Periphery Normal Normal DIAGNOSTIC TESTS: IMPRESSION & PLAN: Encounter Diagnoses Name Primary? History of episcleritis Yes ??? WILMA positive 32 yo female with episodic left eye redness. Both the symptoms and the photo look more consistent with scleritis rather than episcleritis. Also on the ddx is staph maringalis because there is pannus suggestive of chronic corneal inflammation. She is not currently having an episode--adivsed her to call during her next episode so she can bee seen when it's active for diagnostic purposes. If exam is consistent with scleritis, with her next flare would be inclined.to treat her with PO indomethacin. I am scribing for Delaney Reyes MD, while she is personally performing the service. Jessica Guerrero, KAITLYN, 01/06/2023 9:42 I have reviewed the patient's past medical, family, social and surgical history. I have also reviewed the patient's medications, allergies, and problem list. I performed my own HPI and have reviewed the [facility]'s ROS as well. I personally completed this exam myself. Delaney Reyes MD documented in this encounter Plan of Treatment Upcoming Encounters Date Type Department Care Team (Late st Contact Info) Description 07/22/2024 14:00 EST Office Visit [facility] Ophthalmology - [address] [phone] Luis Reich MD [address] [place] [address], [address] [place] [address] documented as of this encounter Visit Diagnoses Diagnosis History of episcleritis- Primary Personal history of other disorders of nervous system and sense organs WILMA positive Other and unspecified nonspecific immunological findings documented in this encounter Historical Medications * This list may reflect changes made after this encounter. predniSONE (DELTASONE) 5 mg tablet Take 2 Tablets by mouth daily. 03/05/2024 added in this encounter Eye Exam Visual Acuity (Snellen - Linear) Right eye Left eye Dist sc 20/20 20/20 Tonometry (Applanation, 9:09) Right eye Left eye Pressure 17 16 Pupils Dark Light Right eye 4.5 3.5 Left eye 4.5 3.5 Visual Swann Right eye Left eye Full Full Extraocular Movement Right eye Left eye Full, Ortho Full, Ortho Neuro/Psych Oriented x3: Yes Mood/Affect: Normal Dilation Both eyes: Tropicamide 1%, P henylephrine 2.5% @ 9:23 Color Right eye Left eye Ishihara 12/12 12/12 External Exam Right eye Left eye External Normal Normal Slit Lamp Exam Right eye Left eye Lids/Lashes Normal Normal Conjunctiva/Sclera White and quiet trace conj hy peremia Cornea Clear micropannus form ation Anterior Chamber Deep and quiet Deep and quiet Iris Normal Normal Lens Clear Clear Anterior Vitreous Normal Normal Fundus Exam Right eye Left eye Disc Intact Rim Intact Rim C/D Ratio 0.2 0.3 Macula Normal Normal Vessels Normal Normal Periphery Normal Normal Care Teams Calender Machine Operator Relationship Specialty Start Date End Date Bianca Snow MD PCP - General 08/12/17 05/03/24 documented as of this encounter
--- OUTSIDE RECORDS SUMMARY | 2024-06-25 00:22 | XMS_ITS | Encounter Summary ---
Author Organization [facility] Address [address] [place] [address] Care Team Providers Care System Support Analyst Name Role Phone Bianca Snow MD Primary Care Provider Unavailabl e Encounter Details Date Type Department Care Team (Late st Contact Info) Description 04/20/2024 11:30 EDT Phlebotomy Only [facility] - Outpatient Phlebotomy Drawing [address] [place] [address] Lab, [facility] Scleritis of left eye Social History Tobacco Use Types Packs/Day Years [...] 08/29/2022 11:09 EST documented in this encounter Miscellaneous Notes * Result Encounter Note - Lopez Perrin MBBS - 04/20/2024 1130 EDT Results quicknote: - (04/20/24) Labs: CBC and CMP unremarkable. CRP and ESR wnl. Quantiferon negative. ANCA, PR3 and MPO negative. C3/C4 wnl. CCP negative. Awaiting CXR. Continue as per 04/2024 documented in this encounter Plan of Treatment Upcoming Encounters Date Type Department Care Team (Late st Contact Info) Description 07/22/2024 14:00 EST Office Visit [facility] Ophthalmology - [facility] [address] [place] [address] Luis Reich MD [address] [facility] [address] [place] [address] documented as of this encounter Procedures Procedure Name Priority Date/Time Associated Diagnosis Comments QUANTIFERON MITOGEN (PERFORMABLE) Routine 04/20/2024 11:44 EDT Scleritis of left eye QUANTIFERON TB2 (PERFORMABLE) Routine 04/20/2024 11:44 EDT Scleritis of left eye QUANTIFERON TB1 (PERFORMABLE) Routine 04/20/2024 11:44 EDT Scleritis of left eye QUANTIFERON NIL (PERFORMABLE) Routine 04/20/2024 11:44 EDT Scleritis of left eye QUANTIFERON INTERPRETATION (PERFORMABLE) Today 04/20/2024 11:44 EDT Scleritis of left eye ANCA VASCULITIS PROFILE IFA WITH MPO AND PR3 Routine 04/20/2024 11:44 EDT Scleritis of left eye CCP ANTIBODIES Routine 04/20/2024 11:44 EDT Scleritis of left eye QUANTIFERON TB GOLD PLUS Routine 04/20/2024 11:44 EDT Scleritis of left eye SED RATE Routine 04/20/2024 11:44 EDT Scleritis of left eye COMPLETE BLOOD COUNT AND DIFFERENTIAL Routine 04/20/2024 11:44 EDT Scleritis of left eye C3 COMPLEMENT Routine 04/20/2024 11:44 EDT Scleritis of left eye C4 COMPLEMENT Routine 04/20/2024 11:44 EDT Scleritis of left eye C REACTIVE PROTEIN Routine 04/20/2024 11 :44 EDT Scleritis of left eye COMPREHENSIVE METABOLIC PANEL (CMP) Routine 04/20/2024 11:44 EDT Scleritis of left eye documented in this encounter Results * QUANTIFERON INTERPRETATION (PERFORMABLE) (04/20/2024 11:44 EDT) Pathologist [facility] Quantiferon Interpretation Negative Negative 04/21/2024 15:12 EDT [facility] Comment:No interferon-gamma response to M. tuberculosis antigens was detected. ??Infection with M. tuberculosis is unlikely. A single negative result does not exclude infection with M. tuberculosis. ??In patients at high risk for M. tuberculosis infection, a second test should be considered. TB1 Ag minus Nil 0.02 IU/ml 04/21/20 24 15:12 EDT [facility] TB2 Ag minus Nil 0.02 IU/mL 04/21/20 24 15:12 T [facility] Blood VENOUS BLOOD / Unknown Venipuncture / Unknown 04/20/2024 11:44 EDT 04/21/2024 15:07 EDT Lopez PACHECO IMMUNOLOGY AND SEROLOGY ORDER KATTY Final Result [facility] [address] [place] [address] [id number] * SED RATE (04/20/2024 11:44 EDT) Sed Rate 9 0 - 20 mm/hr 04/20/2024 21:14 EDT [facility] Comment:Note: Sample greater than 4 hours old (but less than 12 hours) when tested. If refrigerated, sample is stable when tested within 12 hours of collection. Blood VENOUS BLOOD / Unknown Venipuncture / Unknown 04/20/2024 11:44 EDT 04/20/2024 12:29 EDT Lopez PACHECO HEMATOLOGY & PF4 ORDERABLES F inal Result [facility] [address] [place] [id number] * QUANTIFERON MITOGEN (PERFORMABLE) (04/20/2024 11:44 EDT) Blood VENOUS BLOOD / Unknown Venipuncture / Unknown 04/20/2024 11:44 EDT 04/20/2024 12:15 EDT Lopez PACHECO IMMUNOLOGY AND SEROLOGY ORDER KATTY Final Result Performing Organization Address City/[facility]/ZIP Co de Phone Number [facility] [address] [place] [id number] * QUANTIFERON TB2 (PERFORMABLE) (04/20/2024 11:44 EDT) Blood VENOUS BLOOD / Unknown Venipuncture / Unknown 04/20/2024 11:44 EDT 04/20/2024 12:14 EDT Lopez PACHECO IMMUNOLOGY AND SEROLOGY ORDER KATTY Final Result [facility] [address] [place] [id number] * QUANTIFERON TB1 (PERFORMABLE) (04/20/2024 11:44 EDT) Blood VENOUS BLOOD / Unknown Venipuncture / Unknown 04/20/2024 11:44 EDT 04/20/2024 12:14 EDT us Lopez PACHECO IMMUNOLOGY AND SEROLOGY ORDER KATTY Final Result Performing Organization Address City/[facility]/ZIP Co de Phone Number [facility] [address] [place], [place] [phone] * QUANTIFERON NIL (PERFORMABLE) (04/20/2024 11:44 EDT) Blood VENOUS BLOOD / Unknown Venipuncture / Unknown 04/20/2024 11:44 EDT 04/20/2024 12:14 EDT Lopez PACHECO IMMUNOLOGY AND SEROLOGY ORDER KTATY Final Result Performing Organization Address [facility] Co de Phone Number [facility] [address] [place] [address] * CCP ANTIBODIES (04/20/2024 11:44 EDT) CCP Antibodies <2.5 <5.0 U/mL 04/21/2024 9:50 EDT [facility] Blood VENOUS BLOOD / Unknown Venipuncture / Unknown 04/20/2024 11:44 EDT 04/20/2024 12:10 EDT Result [facility] Lopez PACHECO IMMUNOLOGY AND SEROLOGY ORDER KATTY Final Result Performing Organization Address City/[facility] Co de Phone Number [facility] [address] [place] [address] * C4 COMPLEMENT (04/20/2024 11:44 EDT) C4 Complement 21 13 - 39 mg/dL 04/21/2024 10:08 EDT [facility] Blood VENOUS BLOOD / Unknown Venipuncture / Unknown 04/20/2024 11:44 EDT 04/20/2024 12:10 EDT Lopez PACHECO CHEMISTRY & BLOOD GAS ORDERAB LES Final Result [facility] [address], [place] [phone] * C3 COMPLEMENT (04/20/2024 11:44 EDT) [facility] C3 Complement 106 81 - 157 mg/dL 04/21/2024 10:08 EDT [facility] Blood VENOUS BLOOD / Unknown Venipuncture / Unknown 04/20/2024 11:44 EDT 04/20/2024 12:10 EDT Lopez HALEY CHEMISTRY & BLOOD GAS ORDERAB LES Final Result Performing Organization Address City/[facility] Co de Phone Number [facility] [address], [place] [phone] * ANCA VASCULITIS PROFILE IFA WITH MPO AND PR3 (04/20/2024 11:44 EDT) [facility] Lab ANCA Interpretation Negative Negative 04/21/2024 13:33 EDT [facility] Comment: No titer performed, ANCA Screen is negative. Results were obtained with the [employer] NOVA Lite ANCA kit by indirect immunofluorescence. Myeloperoxidase Antibody, IgG <0.96 <6.00 IU/mL 04/21/2024 13:33 EDT [facility] Comment:Results were obtaine d with the [employer] Flash MPO chemiluminescent immunoassay. Values obtained with different manufacturers' assay methods must not be used interchangeably. The magnitude of the reported antibody levels cannot always be corrrelated to an endpoint titer. Proteinase 3 Antibody, IgG <0.6 <5.0 IU/mL 04/21/2024 13:33 EDT [facility] Comment:Results were obtaine d with the [employer] Flash PR3 chemiluminescent immunoassay. Values obtained with different manufacturers' assay methods must not be used interchangeably. The magnitude of the reported antibody levels cannot always be corrrelated to an endpoint titer. Blood VENOUS BLOOD / Unknown Venipuncture / Unknown 04/20/2024 11:44 EDT 04/20/2024 12:10 EDT Lopez PACHECO IMMUNOLOGY AND SEROLOGY ORDER KATTY Final Result [facility] [address] [place] [address] * C REACTIVE PROTEIN (04/20/2024 11:44 EDT) Pathologist [facility] C-Reactive Protein <5.0 <10.0 mg/L 04/20[facility]2024 [facility] Blood VENOUS BLOOD / Unknown Venipuncture / Unknown 04/20/2024 11:44 EDT 04/20/2024 12:08 EDT Lopez PACHECO CHEMISTRY & BLOOD GAS ORDERAB LES Final Result Performing Organization Address City/[facility]/ZIP Co de Phone Number [facility] [address] [place] [address] * (ABNORMAL) COMPLETE BLOOD COUNT AND DIFFERENTIAL (04/20/2024 11:44 EDT) [facility] WBC 7.61 4.00 - 12.40 K/cmm 04/20/2024 12:15 [facility] RBC 4.39 3.86 - 5.04 M/cmm 04/20/2024 12:15 [facility] Hemoglobin 13.2 11.6 - 15.2 g/dL 04/20/2024 12:15 [facility] HCT 40.1 34.9 - 44.4 % 04/20/2024 12:15 [facility] MCV 91 81 - 98 fL 04/20/2024 12:15 [facility] MCH 30.1 26.7 - 33.3 pg 04/20/2024 12:15 [facility] MCHC 32.9 32.1 - 35.9 g/dL 04/20/2024 12:15 [facility] RDW-CV 12.0 <14.7 % 04/20/2024 12:15 [facility] RDW-SD 40.5 <50.4 fl 04/20/2024 12:15 [facility] PLT 345 141 - 377 K/cmm 04/20/2024 12:15 [facility] MPV 9.8 9.5 - 12.7 fL 04/20/2024 12:15 [facility] % Neutrophils 55.7 Not Indicated % 04/20/2024 12:15 [facility] % Lymphocytes 33.2 Not Indicated % 04/20/2024 12:15 [facility] % Monocytes 5.3 Not Indicated % 04/20/2024 12:15 [facility] % Eosinophils 3.8 Not Indicated % 04/20/2024 12:15 [facility] % Basophils 1.7 Not Indicated % 04/20/2024 12:15 [facility] % Immature Grans 0.3 <0.9 % 04/20/2024 12:15 [facility] Absolute Neutrophils 4.24 2.20 - 8.85 K/cmm 04/20/2024 12:15 [facility] Absolute Lymphocytes 2.53 1.09 - 3.30 K/cmm 04/20/2024 12:15 [facility] Absolute Monocytes 0.40 0.10 - 0.80 K/cmm 04/20/2024 12:15 [facility] Absolute Eosinophils 0.29 0.03 - 0.61 K/cmm 04/20/2024 12:15 [facility] ABS Basophils 0.13(H) 0.01 - 0.11 K/cmm 04/20/2024 12:15 [facility] Absolute Immature Grans 0.02 0.00 - 0.06 K/cmm 04/20/2024 12:15 [facility] Type of Differential: Auto 04/20/2024 12:15 [facility] Blood VENOUS BLOOD / Unknown Venipuncture / Unknown 04/20/2024 11:44 EDT 04/20/2024 12:13 EDT us Lopez PACHECO PACKAGES & DNA PROBE ORDERABL ES Final Result [facility] [address] [place] [address] * COMPREHENSIVE METABOLIC PANEL (CMP) (04/20/2024 11:44 EDT) Sodium 139 136 - 145 mmol/L 04/20/2024 12:56 [facility] Potassium 4.4 3.5 - 5.0 mmol/L 04/20/2024 12:56 [facility] Chloride 102 96 - 110 mmol/L 04/20/2024 12:56 [facility] CO2 Total 29 22 - 32 mmol/L 04/20/2024 12:56 [facility] Glucose 83 70 - 99 mg/dl 04/20/2024 12:56 [facility] BUN 12 10 - 26 mg/dL 04/20/2024 12:56 [facility] Creatinine 0.67 0.52 - 1.04 mg/dL 04/20/2024 12:56 [facility] eGFR 119 >60 mL/min/1.7 3m2 04/20/2024 12:56 [facility] Total Protein 7.4 6.3 - 8.2 g/dL 04/20/2024 12:56 [facility] Albumin 4.7 3.4 - 4.9 g/dL 04/20/2024 12:56 [facility] Alkaline Phosphatase 60 38 - 126 U/L 04/20/2024 12:56 [facility] AST 25 15 - 46 U/L 04/20/2024 12:56 [facility] ALT 18 <35 U/L 04/20/2024 12:56 T [facility] Bilirubin, Total 0.8 <1.4 mg/dL 04/20/20 12:56 EDT [facility] Calcium 9.8 8.5 - 10.5 mg/dL 04/20/2024 12:56 [facility] Albumin/Globulin Ratio 1.7 1.0 - 2.5 04/20/2024 12:56 T [facility] Anion Gap 8 5 - 14 mmol/L 04/20/2024 12:56 T [facility] Blood VENOUS BLOOD / Unknown Venipuncture / Unknown 04/20/2024 11:44 EDT 04/20/2024 12:08 EDT us Lopez PACHECO CHEMISTRY & BLOOD GAS ORDERAB LES Final Result [facility] [address] [place] [address] documented in this encounter Visit Diagnoses Diagnosis Scleritis of left eye Scleritis, unspecified documented in this encounter Care Teams System Support Analyst Relationship Specialty Start Date End Date Bianca Snow MD PCP - General 08/12/17 05/03/24 documented as of this encounter
--- OUTSIDE RECORDS SUMMARY | 2024-06-25 00:22 | XMS_ITS | Encounter Summary ---
Author Organization [facility] Address [address] [place] [address] Care Team Providers Care Residential Builder Name Role Phone Bianca Snow MD Primary Care Provider Unavailabl e Reason for Visit * Reason Comments Eye Problem Encounter Details Date Type Department Care Team (Late st Contact Info) Description 03/05/2024 13:00 EDT Office Visit [facility] Ophthalmology - [address] [address] Judi Roberto MD [address] [place] [address], [address] [place] [address] Social History Tobacco Use Types [...] 1 Capsule by mouth 3 times daily. 21 Capsule 03/13/2024 4 documented in this encounter Progress Notes * Judi Roberto MD - 03/05/2024 1300 EDT CC: Chief Complaint Patient presents with Eye Problem HPI: The patient is a 33 y.o. female. HPI [employer]BR[employer] WORK[employer] ERV: h/o episcleritis left eye: pt believes she's had a flare. Started about a week ago with LULswelling. Left eye is red, started at 4/10 pain last Friday. Alcohol consumption seems to aggravate it; makes it worse. Photophobic. Redness varies between the eyes; sometimes both are red/bloodshot looking. No vision changes; sensitive going from light to dark, and vice versa. Some tearing due to sensitivity, left eye. No vision changes. Just getting over a cold. By the end of the day the last couple of days her face has been red/hot; almost as if she'd been drinking but she has not. This occurs on and off since 2013. Pt had bloodwork; tested high once at rheumatology for RA; has arthritis. Hormonal issues. No prior sx, trauma or laser. No eye drops used currently. Pt has seen Dr Lundberg; no methotrexate. Last edited by Chanelle Herrera COA on 03/05/2024 13:32. Allergies include: Pollen extracts and Cat dander Patient Active Problem List Diagnosis Episcleritis of both eyes Pain in joint Infertility, female Outpatient Medications Marked as Taking for the 03/05/24 encounter (Office Visit) with Hansa Roberto MD Medication Sig fluticasone propionate (FLONASE) 50 mcg/actuation nasal spray Instill 1 [place] into both nostrils ifneeded for Other (congestion). indomethacin (INDOCIN) 25 mg capsule Take 1 Capsule by mouth 3 times daily. vit no.129/iron/folic ( ONE DAILY ORAL) Take by mouth. Base Eye Exam Visual Acuity (Snellen - Linear) Right Left Dist sc 20/20 20/20-1 Near nj 20/20 20/20 Tonometry (Applanation, 13:26) Right Left Pressure 13 12 Pupils Pupils Dark Light Right PERRL 5.5 5 Left PERRL 6 5.5 Visual Swann Right Left Full Full Extraocular Movement Right Left Full, Ortho Full, Ortho Neuro/Psych Oriented x3: Yes Mood/Affect: Normal Slit Lamp and Fundus Exam External Exam Right Left External Normal Normal Slit Lamp Exam Right Left Lids/Lashes Normal Normal Conjunctiva/Sclera White and quiet 2+ injection temporally, no blanching with instillation of phenylephrine drops Cornea Clear Clear Anterior Chamber Deep and quiet Deep and quiet Iris Round and reactive Round and reactive Lens Clear Clear Vitreous Normal Normal IMPRESSION & PLAN: Encounter Diagnoses Name Primary? Scleritis of left eye Yes History of episcleritis Uncorrected distance visual acuity was 20/20 in the right eye and 20/20-1 in the left eye. Uncorrected near visual acuity was 20/20 in the right eye and 20/20 in the left eye. - history and exam consistent with recurrent scleritis - discussed following up with Rheumatology given multiple episodes of scleritis - may require another medication to address systemic disease - restart indomethacin 25mg tid po - follow up with Dr Reyes within 1-2 weeks I have reviewed the patient's past medical, family, social and surgical history. I have also reviewed the patient's medications, allergies, and problem list. I performed my own HPI and have reviewed the tech's ROS as well. I have reviewed and agree with the above sensorimotor exam/interpretation. I personally completed this exam myself. Judi Roberto MD The patient was instructed to call our office or go to emergency room if worse vision, worse symptoms, or new/other concerns arise. * Nevaeh Gee - 03/05/2024 1300 EDT Scheduled to see [facility] 9.23.24 documented in this encounter Plan of Treatment Upcoming Encounters Date Type Department Care Team (Late st Contact Info) Description 07/22/2024 14:00 EST Office Visit [facility] Ophthalmology - [address] [address] Luis Belle MD [address] [facility], [address] [place] [address] documented as of this encounter Visit Diagnoses Diagnosis Scleritis of left eye- Primary Scleritis, unspecified History of episcleritis Personal history of other disorders of nervous system and sense organs documented in this encounter Discontinued Medications Medication Sig Discontinue Reason Start Date End Da te cholecalciferol, Vitamin D3, 25 mcg (1,000 unit) tablet Take 1 Tablet by mouth daily. Therapy completed (will not send dc message to pharm) 03/05/2024 predniSONE (DELTASONE) 5 mg tablet Take 2 Tablets by mouth daily. Therapy completed (will not send dc message to pharm) 03/05/2024 documented as of this encounter Historical Medications * This list may reflect changes made after this encounter. fluticasone propionate (FLONASE) 50 mcg/actuation nasal spray Instill 1 [place] into both nostrils if needed for Other (congestion). 06/17/2023 added in this encounter Eye Exam Visual Acuity (Snellen - Linear) Right eye Left eye Dist sc 20/20 20/20-1 Near sc 20/20 20/20 Tonometry (Applanation, 13:26) Right eye Left eye Pressure 13 12 Pupils Pupils Dark Light Right eye PERRL 5.5 5 Left eye PERRL 6 5.5 Visual Swann Right eye Left eye Full Full Extraocular Movement Right eye Left eye Full, Ortho Full, Ortho Neuro/Psych Oriented x3: Yes Mood/Affect: Normal External Exam Right eye Left eye External Normal Normal Slit Lamp Exam Right eye Left eye Lids/Lashes Normal Normal Conjunctiva/Sclera White and quiet 2+ injection temporally, no blanching with instillation of phenylephrine drops Cornea Clear Clear Anterior Chamber Deep and quiet Deep and quiet Iris Round and reactive Round and pb ctive Lens Clear Clear Anterior Vitreous Normal Normal Care Teams Residential Builder Relationship Specialty Start Date End Date Bianca Snow MD PCP - General 08/12/17 05/03/24 documented as of this encounter
--- OUTSIDE RECORDS SUMMARY | 2024-06-25 00:22 | XMS_ITS | Encounter Summary ---
Author Organization [facility] Address [address] [place] [address] Care Team Providers Care Bargeman Name Role Phone Bianca Snow MD Primary Care Provider Unavailabl e Reason for Referral * Radiology Services (Routine/Next Available) - Authorization Not Required Specialty Diagnoses / Procedures Referred By Bill richards Referred To Contact Diagnoses Positive WILMA (antinuclear antibody) Procedures XR CHEST 2 VIEWS Lopez Perrin [employer]BS Phone: tel: fax: [facility] Referral ID Status Reason Start Date Expiration Date Visits Requested Visits Authorized [id number] Authorization Not Required 08/29/2022 1 1 Reason for Visit * Reason Comments New Patient Visit Elevated ANAThe Pt.s tari has redness and inflammation in the left eye for six years. Depends on weather gets some joint pain. * Referral (Routine) - Authorization Not Required Specialty Diagnoses / Procedures Referred By Bill richards Referred To Contact Rheumatology Diagnoses Raised antibody titer Courtney Tanner MD Phone: tel: fax: [facility] Rheumatology [address] [place] [address] Phone: tel: fax: Referral ID Status Reason Start Date Expiration Date Visits Requested Visits Authorized [id number] Authorization Not Required 1 1 Encounter Details Date Type Department Care Team (Late st Contact Info) Description 08/29/2022 10:45 EST Office Visit [facility] Rheumatology [address] [place] [address] Lopez Perrin MBBS [address] [facility], [address] [place] [address] Positive WILMA (antinuclear antibody) (Primary Dx) Social History Tobacco Use Types Packs/Day Years Used Date Smoking Tobacco: Never Smokeless Tobacco: Never Interpersonal Safety Answer Date Record ed Physically [...] Sign Reading Time Taken Comments Blood Pressure 110/70 08/29/2022 1105 EST Pulse 72 08/29/2022 1105 EST Temperature 35.5 ??C (95.9 ??F) 08/29/2022 1105 EST Respiratory Rate - - Oxygen Saturation - - Inhaled Oxygen Concentration - - Weight 68.5 kg (151 lb) 08/29/2022 1105 EST Height 170 cm (5' 6.93) 08/29/2022 1105 EST Body Mass Index 23.7 08/29/2022 1105 EST documented in this encounter Functional Status * Because of [...] 08/29/2022 11:09 EST documented in this encounter Patient Instructions * Patient Instructions* Lopez Perrin MBBS - 08/29/2022 10:45 EST - Lab studies and x-rays - Follow up in 10 - 14 days documented in this encounter Progress Notes * Lopez Perrin MBBS - 08/29/2022 1045 EST [facility] Rheumatology and Clinical Immunology Initial Patient Visit Chief Complaint: No chief complaint on file. Patient ID: Kandi Mireles Date of Service: 08/21/2022 Patient age: 32 y.o. Patient gender: female Subjective / HPI: Kandi Mireles is an 32-year-old woman with a background of episcleritis who presented to [facility] rheumatology clinic for a new patient assessment. Ms. Mireles presented to their PCP 07/2022. recurrent episcleritis and arthralgia. Labs remarkable for WILMA 1:160. RF negative. CRP and ESR wnl. Urinalysis unremarkable. Patient referred to rheumatologyfor evaluation. Ms. Mireles describes a 5 - 6 year history of acute onset unilateral eye pain (bruise-like in character), redness, photosensitivity, irritation and eye watering. Increasing frequency of episodes now occurring once a month. Occur in both right and left eye. More frequent following most recent . Symptoms self-resolve but clear more quickly with steroid drops or ibuprofen. Ms. Mireles endorses an approximately 15 year of arthralgia principally localized to: knee / hips bilaterally. 1 -2 hours of morning stiffness involving hands but denies hand pain. Denies transient joint swelling. Hip /knee arthralgia exacerbated by changes in barometric pressure / activity. Does not feel pain is severe enough for acetaminophen. Review of Systems: ROS (+): Dry skin. IVF. 1x Miscarriage (8 weeks). Review of Systems: A complete 10 point ROS was performed and pertinent positive and negative findings listed in HPI, otherwise negative. Family History: - Father: Unspecified arthritis - Sister: ANNE-MARIE Social History: - Grew up in [place]. - Lives with partner and 1 child - Exercise: Active (gardening, walking and hiking) - Nonsmoker. Intermittent ETOH use (4 drinks per week). Remote cannabis use. No current outpatient medications on file. No current facility-administered medications for this visit. Not on File PMH PSH No past medical history on file. No past surgical history on file. Social History Family history Social History Tobacco Use ??? Smoking status: Not on file ??? Smokeless tobacco: Not on file Substance Use Topics ??? Alcohol use: Not on file No family history on file. Objective: There were no vitals taken for this visit. There is no height or weight on file to calculate BMI. General: No acute distress. Alert, fully oriented. HEENT: Left eye red episcleral vasodilatation. Watering. Mucus membranes moist; oropharynx clear. Neck symmetrical, trachea midline Lungs: Normal expansion. Clear to auscultation bilaterally with no crackles, crepitations or wheeze. Heart: Regular rate and rhythm, I + II present with no murmur Abdomen: Soft, non-tender, non-distended. No organomegaly. Bowel sounds present. Extremities: Extremities without cyanosis or edema. Skin: No rashes or lesions Musculoskeletal: Hand: No synovitis, muscle wasting or deformity. Full range of movement. Elbow: No tenderness on palpation of medial or lateral epicondyle. Normal range of motion. No nodules. Shoulder: No synovitis or swelling. Normal range of motion in shoulders bilaterally. Hip: No tenderness on palpation over anterior superior iliac crest, greater trochanter. No pain with log roll. ROM normal. Knee: No asymmetry, muscle wasting, scars or deformities. No joint effusions or swellings. No tenderness on palpation of femoral epicondyle or tibial tuberosity. Foot: No tenderness on palpation of the ankles or MTP joint bilaterally. Normal range of movement. Workup: I have personally reviewed and the imaging / lab results Labs: - Reviewed Imaging: - Awaiting. Assessment & Plan: Recurrent episcleritis and positive WILMA: 5 - 6 year history of acute onset unilateral eye pain (bruise-like in character), redness, photosensitivity, irritation and eye watering. Episodes occur approximately once a month and are responsive to topical steroids and ibuprofen. Additionally describesa 15-year history of b/l hip and b/l knee pain exacerbated by activity. 1 -2 hours of hand morning stiffness without joint pain. No transient joint swelling. Note family history of ANNE-MARIE. On examination left eye episcleritis, no joint tenderness, normal ROM and no synovitis. Labs remarkable for: WILMA 1:160. RF negative. CRP and ESR wnl. Urinalysis unremarkable. Impression: Episcleritis. The majorityof patients with episcleritis do not have a underlying systemic inflammatory condition. May to be associated with RA, IBD, vasculitis, SLE or lyme. Ms. Mireles denies abdominal pain, hematochezia or melena. No sinus congestion, cough, rash or hematuria suggestive of vasculitis. An incidentally positive WILMA is found in the healthy population about 3 to 5% of the time. In absence of synovitis on examination, consitutional, dermatological, hematological, mucosal, serosal or renal involvement feel that SLE is unlikely. Does not have any features of systemic sclerosis, skin tightening, Raynauds or telangiectasia. Acknowledging hand stiffness and family history of ANNE-MARIE given absence of synovitis on physical examination, RF negative and normal inflammatory markers I am less suspicious of inflammatory arthritis. No uveitis, cough or erythema nodosum suggestive of sarcoidosis. No sicca symptoms suggestive of sarcoidosis. - Order CCP, thyroid cascade, C3/C4, dsDNA, oliveros, INSET CUTTER, SSA, SSB, Scl70, thyroid autoantibodies andlyme. - Order CXR Follow up in 10 - 14 days via telemedicine TARA Pierce, 08/21/2022 10:38 I spent a total of 60 minutes on the date of this encounter meeting with the patient and reviewing documentation/coordinating care as described in the above note. No procedures were performed at the time of the visit. documented in this encounter Plan of Treatment Upcoming Encounters Date Type Department Care Team (Late st Contact Info) Description 07/22/2024 14:00 EST Office Visit [facility] Ophthalmology - [address] [address] Luis Reich MD [address] [place] [address], [address] [place] [address] documented as of this encounter Procedures Procedure Name Priority Date/Time Associated Diagnosis Comments LYME AB SCREEN, IGG AND IGM Routine 08/29/2022 12:06 EST Positive WILMA (antinuclear antibody) documented in this encounter Results * XR CHEST 2 VIEWS (08/29/2022 12:28 EST) Anatomical Region Laterality Modality Computed Radiogr aphy 08/29/2022 15:1 8 EST Impressions 08/29/2022 15:18 EST No acute abnormality. Narrative 08/29/2022 15:18 EST INDICATION: Positive WILMA and joint pain ? hilar adneopathy. COMPARISON: None. TECHNIQUE: X-ray chest 2 views. FINDINGS: The cardiomediastinal silhouette and pulmonary vasculature are within normal limits. The lungs are clear. No pleural effusion or pneumothorax is identified. No acute bone or joint abnormality is seen. Procedure Note Wiley Gee MD - 08/29/2022 INDICATION: Positive WILMA and joint pain ? hilar adneopathy. COMPARISON: None. TECHNIQUE: X-ray chest 2 views. FINDINGS: The cardiomediastinal silhouette and pulmonary vasculature are withinnormal limits. The lungs are clear. No pleural effusion or pneumothorax isidentified. No acute bone or joint abnormality is seen. IMPRESSION No acute abnormality. Lopez PACHECO IMG DIAGNOSTIC IMAGING ORDERA BLES Final Result * LYME AB, IGG AND IGM (08/29/2022 12:06 EST) Lyme Antibody, IgG Negative Negative 08/30/2022 8:01 EST [facility] Lyme Antibody, IgM Negative Negative 08/30/2022 8:01 EST [facility] Blood VENOUS BLOOD / Unknown Venipuncture / Unknown 08/29/2022 12:06 EST 08/29/2022 13:17 EST Lopez PACHECO IMMUNOLOGY AND SEROLOGY ORDER KATTY Final Result [facility] [address] [place] [address] * INSET CUTTER ANTIBODIES BY DONTE (08/29/2022 12:06 EST) INSET CUTTER Antibody 5.3 <20.0 Units 08/30/2022 15:25 EST [facility] Comment: ? Negative: <20.0 Units ? Weak Positive: 20.0 - 39.9 Units ? Moderate Positive: 40.0 - 80.0 Units ? Strong Positive: >80.0 Units Results were obtained with the [employer] Quanta Lite INSET CUTTER DONTE. INSET CUTTER values obtained with different property management coordinator's assay methods may not be used interchangeaby. ??The magnitude of the reported IgG levels cannot be be correlated to an endpoint titer. A positive result in the Quanta Lite INSET CUTTER DONTE indicates the presence of antibodies reactive with the INSET CUTTER/Sm complex but cannot distinguish between anti-Sm and anti-INSET CUTTER activity. Blood VENOUS BLOOD / Unknown Venipuncture / Unknown 08/29/2022 12:06 EST 08/29/2022 13:11 EST Result [facility] Lopez Perrin [facility]MMUN[facility] AND SEROLOGY ORDER KATTY Final Result Performing Organization Address [facility] de Phone Number [facility] [address] [place] [address] * SM (OLIVEROS) ANTIBODY (08/29/2022 12:06 EST) SM (Oliveros) Antibody 2.1 <20.0 Units 08/30/2022 15:28 EST [facility] Comment: ? Negative: <20.0 Units ? Weak Positive: 20.0 - 39.9 Units ? Moderate Positive: 40.0 - 80.0 Units ? Strong Positive: >80.0 Units Results were obtained with the INOVA QUANTA Lite Sm DONTE. ??Sm values obtained with different manufacturers' assay methods may not be used interchangeably. ??The magnitude of the reported IgG levels cannot be correlated to an endpoint titer. Blood VENOUS BLOOD / Unknown Venipuncture / Unknown 08/29/2022 12:06 EST 08/29/2022 13:11 EST Lopez Perrin [facility] IMMUN[facility] AND SEROLOGY ORDER KATTY Final Result Performing Organization Address [facility] de Phone Number [facility] [address] [place] [address] * THYROID ANTIBODIES (08/29/2022 12:06 EST) Pathologist [facility] Anti-Thyroglobulin <15 <=60 U/mL 2022 22:03 EST [facility] Thyroperoxidase Ab <28 <=60 U/mL 2022 22:03 EST [facility] Blood VENOUS BLOOD / Unknown Venipuncture / Unknown 08/29/2022 12:06 EST 08/29/2022 13:17 EST Lopez PACHECO CHEMISTRY & BLOOD GAS ORDERAB LES Final Result Performing Organization Address [facility] de Phone Number [facility] [address] [place] [address] * SSA ANTIBODIES BY DONTE (08/29/2022 12:06 EST) [facility] SSA Antibody 0.8 <20.0 Units 08/30/2022 15:14 [facility] Comment: ? Negative: <20.0 Units ? Weak Positive: 20.0 - 39.9 Units ? Moderate Positive: 40.0 - 80.0 Units ? Strong Positive: >80.0 Units Results were obtained with the [employer]X QUANTA Lite SS-A DONTE. ??SS-A values obtained with different manufacturers' assay methods may not be used interchangeably. ??The magnitude of the reported IgG levels cannot be correlated to an endpoint titer. Blood VENOUS BLOOD / Unknown Venipuncture / Unknown 08/29/2022 12:06 EST 08/29/2022 13:11 EST Lopez PACHECO IMMUNOLOGY AND SEROLOGY ORDER KATTY Final Result Performing Organization Address [facility] de Phone Number [facility] [address] [place] [address] * SSB ANTIBODIES BY DONTE (08/29/2022 12:06 EST) SSB Antibody 1.9 <20.0 Units 08/30/2022 15:19 EST [facility] Comment: ? Negative: <20.0 Units ? Weak Positive: 20.0 - 39.9 Units ? Moderate Positive: 40.0 - 80.0 Units ? Strong Positive: >80.0 Units Results were obtained with the ZIRX QUANTA Lite SS-B DONTE. ??SS-B values obtained with different manufacturers' assay methods may not be used interchangeably. ??The magnitude of the reported IgG levels cannot be correlated to an endpoint titer. Blood VENOUS BLOOD / Unknown Venipuncture / Unknown 08/29/2022 12:06 EST 08/29/2022 13:11 EST Lopez PACHECO IMMUNOLOGY AND SEROLOGY ORDER KATTY Final Result [facility] [address] [place] [address] * ANTI DNA (DOUBLE STRANDED) (08/29/2022 12:06 EST) Anti-DNA (Double Stranded) <12.3 <30.0 IU/mL 08/30/2022 14:00 EST [facility] Comment: ? Negative: ??<30.0 IU/mL ? Borderline Positive: ??30.0 - 75.0 IU/mL ? Positive: ??>75.0 IU/mL Results were obtained with the ZIRX QUANTA Lite dsDNA SC DONTE assay on the [employer]. Blood VENOUS BLOOD / Unknown Venipuncture / Unknown 08/29/2022 12:06 EST 08/29/2022 13:11 EST Lopez PACHECO IMMUNOLOGY AND SEROLOGY ORDER KATTY Final Result Performing Organization Address [facility] Co de Phone Number [facility] [address] [place] [address] * C4 COMPLEMENT (08/29/2022 12:06 EST) C4 Complement 22 13 - 39 mg/dL 08/30/2022 10:03 EST [facility] Blood VENOUS BLOOD / Unknown Venipuncture / Unknown 08/29/2022 12:06 EST 08/29/2022 13:17 EST Lopez PACHECO CHEMISTRY & BLOOD GAS ORDERAB LES Final Result Performing Organization Address [facility] Co de Phone Number [facility] [address] [place] [address] * C3 COMPLEMENT (08/29/2022 12:06 EST) C3 Complement 129 81 - 157 mg/dL 08/30/2022 10:03 EST [facility] Blood VENOUS BLOOD / Unknown Venipuncture / Unknown 08/29/2022 12:06 EST 08/29/2022 13:17 EST Lopez PACHECO CHEMISTRY & BLOOD GAS ORDERAB LES Final Result Performing Organization Address [facility] de Phone Number [facility] [address] [place] [address] * CCP ANTIBODIES (08/29/2022 12:06 EST) CCP Antibodies <2.5 <5.0 U/mL 08/30/2022 10:43 EST [facility] Blood VENOUS BLOOD / Unknown Venipuncture / Unknown 08/29/2022 12:06 EST 08/29/2022 13:17 EST Lopez PACHECO IMMUNOLOGY AND SEROLOGY ORDER KATTY Final Result Performing Organization Address [facility]/ZIP Co de Phone Number [facility] [address] [place] [address] documented in this encounter Visit Diagnoses Diagnosis Positive WILMA (antinuclear antibody)- Primary Other and unspecified nonspecific immunological findings Positive WILMA (antinuclear antibody) Other and unspecified nonspecific immunological findings documented in this encounter Care Teams Bargeman Relationship Specialty Start Date End Date Bianca Snow MD PCP - General 08/12/17 05/03/24 documented as of this encounter
--- OUTSIDE RECORDS SUMMARY | 2024-06-25 00:22 | XMS_ITS | Encounter Summary ---
Author Organization [facility] Address [address] [place] [address] Care Team Providers Care Supervisor Cook House Name Role Phone Myron Henry MD Primary Care Provider [phone] Encounter Details Date Type Department Care Team (Late st Contact Info) Description 06/22/2015 Results Only [facility] [phone] Brennen Hastings MD [address] [place] [address] Social History Tobacco Use Types Packs/Day Years [...] Info) Description 07/22/2024 14:00 EST Office Visit [facility] Ophthalmology - Main [address] [id number] Luis Reich MD [address] [facility], [address] [place] [address] documented as of this encounter Procedures Procedure Name Priority Date/Time Associated Diagnosis Comments PAP TEST- RESULT ONLY Routine 06/22/2015 0:00 EST documented in this encounter Results * PAP TEST- RESULT ONLY (06/22/2015 0:00 EST) Pathology Report: CYTOPATHOLOGY REPORT Reports generated via electronic interface contain original data; however they are lacking the format of the original report. Caution should be taken when reading/interpreti ng unformatted reports. Name: ? ROSHAN MIRELES ? Accession #: ? [id number] : ? 1990 (Age: 24) ??F ?Collect Date: ? 06/22/2015 Location: ? [facility] ? Receive Date: ? 06/23/2015 Provider: ?BRENNEN HASTINGS MD Copy to: ? Specimen/Source: ?Pap Test, Cervix/Endocervix, ThinPrep Imaging System with manual evaluation Last Menstrual Period: ? SPECIMEN ADEQUACY ? Satisfactory for Evaluation - transformation zone component present GENERAL CATEGORIZATION ? Negative for Intraepithelial Lesion or Malignancy ? Document reviewed and electronically signed by: ? RENETTA Dias(ASCP) ? Report Date: ??06/27/2015 13:15 End of Report [facility] 06/22/2015 06/23/2015 us Brennen Hastings MD PATHOLOGY ORDERABLES Final Resu lt [facility] [address] [place] [address] documented in this encounter Visit Diagnoses Not on filedocumented in this encounter Care Teams Supervisor Cook House Relationship Specialty Start Date End Date Myron Henry MD [address] [place] [address] [address] [place], [place] [id number] PCP - General 07/27/10 08/11/17 documented as of this encounter
--- OUTSIDE RECORDS SUMMARY | 2024-06-25 00:22 | XMS_ITS | Encounter Summary ---
Author Organization [facility] Address [address] [place] [address] Care Team Providers Care Dehydration Plant Operator Name Role Phone Bianca Snow MD Primary Care Provider Unavailabl e Unknown, Provider Primary Care Provider Unava ilable Encounter Details Date Type Department Care Team (Late st Contact Info) Description 04/10/2020 Lab Requisition [facility] Pathology & Laboratory Medicine - [address] [id number] Outr Resulting Lab, Provider Social History Tobacco [...] Info) Description 07/22/2024 14:00 EST Office Visit [facility] Ophthalmology - [address] [id number] Luis Reich MD [address] [place] [address], [address] [place] [address] documented as of this encounter Procedures Procedure Name Priority Date/Time Associated Diagnosis Comments CHLAMYDIA/N. GONORRHOEAE AMPLIFIED NUCLEIC ACID, THINPREP Routine 04/07/2020 11:00 EDT documented in this encounter Results * CHLAMYDIA/N. GONORRHOEAE AMPLIFIED RNA, THINPREP (04/07/2020 11:00 EDT) Neisseria gonorrhoeae Result Negative Negative 04/11/2020 15:26 EDT [facility] Chlamydia trachomatis Result Negative Negative 04/11/2020 15:26 EDT [facility] Papanicolaou smear specimen (specimen) CERVIX UTERI STRUCTURE / Unknown 04/07/2020 11:00 EDT 04/11/2020 9:29 EDT us Provider Outr Resulting Lab MICROBIOLOGY - GENER AL ORDERABLES Final Result [facility] [address] [place] [address] documented in this encounter Visit Diagnoses Not on filedocumented in this encounter Care Teams Dehydration Plant Operator Relationship Specialty Start Date End Date Bianca Snow MD PCP - General 08/12/17 05/03/24 Unknown, MD Olga PCP - General 06/13/24 documented as of this encounter
--- OUTSIDE RECORDS SUMMARY | 2024-06-25 00:22 | XMS_ITS | Encounter Summary ---
Author Organization [facility] Address [address] [place] [address] Care Team Providers Care Ingot Car Operator Name Role Phone Bianca Snow MD Primary Care Provider Unavailabl e Unknown, Provider Primary Care Provider Unava ilable Encounter Details Date Type Department Care Team (Late st Contact Info) Description 07/31/2022 Lab Requisition [facility] Pathology & Laboratory Medicine - [address] [phone] Outr Resulting Lab, Provider Social History Tobacco [...] Info) Description 07/22/2024 14:00 EST Office Visit [facility] Ophthalmology - [address] [phone] Luis Reich MD [address] [place] [address], [address] [place] [address] documented as of this encounter Procedures Procedure Name Priority Date/Time Associated Diagnosis Comments SS-B (LA) ANTIBODY, IGG Routine 07/31/2022 12:10 EST [facility] SSA ANTIBODIES BY DONTE Routine 07/31/2022 12:10 EST SM (KOO) ANTIBODY, IGG Routine 07/31/2022 12:10 EST DOUBLE STRANDED DNA ANTIBODY, IGG Routine 07/31/2022 12:10 EST documented in this encounter Results * ANTI DNA (DOUBLE STRANDED) (07/31/2022 12:10 EST) Pathologist [facility] Anti-DNA (Double Stranded) <12.3 <30.0 IU/mL 08/02/2022 15:46 EST [facility] Comment: ? Negative: ??<30.0 IU/mL ? Borderline Positive: ??30.0 - 75.0 IU/mL ? Positive: ??>75.0 IU/mL Results were obtained with the [employer] QUANTA Lite dsDNA SC DONTE assay on the [employer] DSX. Blood VENOUS BLOOD / Unknown 07/31/2022 12:10 EST 07/31/2022 21:32 EST us Provider Outr Resulting Lab IMMUNOLOGY AND SEROL OGY ORDERABLES Final Result [facility] [address] [place] [address] * SM (KOO) ANTIBODY (07/31/2022 12:10 EST) SM (Koo) Antibody 2.3 <20.0 Units 08/02/2022 14:11 EST [facility] Comment: ? Negative: <20.0 Units ? Weak Positive: 20.0 - 39.9 Units ? Moderate Positive: 40.0 - 80.0 Units ? Strong Positive: >80.0 Units Results were obtained with the [employer] QUANTA Lite Sm DONTE. ??Sm values obtained with different manufacturers' assay methods may not be used interchangeably. ??The magnitude of the reported IgG levels cannot be correlated to an endpoint titer. Blood VENOUS BLOOD / Unknown 07/31/2022 12:10 EST 07/31/2022 21:32 EST us Provider Outr Resulting Lab IMMUNOLOGY AND SEROL OGY ORDERABLES Final Result Performing Organization Address [facility] de Phone Number [facility] [address] [place] [address] * SSB ANTIBODIES BY DONTE (07/31/2022 12:10 EST) SSB Antibody 2.0 <20.0 Units 08/02/2022 15:58 EST [facility] Comment: ? Negative: <20.0 Units ? Weak Positive: 20.0 - 39.9 Units ? Moderate Positive: 40.0 - 80.0 Units ? Strong Positive: >80.0 Units Results were obtained with the [employer] QUANTA Lite SS-B DONTE. ??SS-B values obtained with different manufacturers' assay methods may not be used interchangeably. ??The magnitude of the reported IgG levels cannot be correlated to an endpoint titer. Blood VENOUS BLOOD / Unknown 07/31/2022 12:10 EST 07/31/2022 21:32 EST Provider Outr Resulting Lab IMMUNOLOGY AND SEROL OGY ORDERABLES Final Result Performing Organization Address [facility] de Phone Number [facility] [address] [place] [address] * SSA ANTIBODIES BY DONTE (07/31/2022 12:10 EST) SSA Antibody 0.8 <20.0 Units 08/02/2022 13:13 EST [facility] Comment: ? Negative: <20.0 Units ? Weak Positive: 20.0 - 39.9 Units ? Moderate Positive: 40.0 - 80.0 Units ? Strong Positive: >80.0 Units Results were obtained with the [employer] QUANTA Lite SS-A DONTE. ??SS-A values obtained with different manufacturers' assay methods may not be used interchangeably. ??The magnitude of the reported IgG levels cannot be correlated to an endpoint titer. Blood VENOUS BLOOD / Unknown 07/31/2022 12:10 EST 07/31/2022 21:32 EST us Provider Outr Resulting Lab IMMUNOLOGY AND SEROL OGY ORDERABLES Final Result Performing Organization Address City/State/[facility] Co de Phone Number [facility] [address] [place] [address] documented in this encounter Visit Diagnoses Not on filedocumented in this encounter Care Teams Ingot Car Operator Relationship Specialty Start Date End Date Bianca Snow MD PCP - General 08/12/17 05/03/24 Edward, MD Olga PCP - General 06/13/24 documented as of this encounter
--- OUTSIDE RECORDS SUMMARY | 2024-06-25 00:22 | XMS_ITS | Encounter Summary ---
Author Organization [facility] Address [address] [place] [address] Care Team Providers Care Building Admin Name Role Phone Bianca Snow MD Primary Care Provider Unavailabl e Reason for Visit * Reason Comments Eye Problem Encounter Details Date Type Department Care Team (Late st Contact Info) Description 04/15/2024 9:30 EDT Office Visit [facility] Ophthalmology - [address] [address] Luis Reich MD [address] [place] [address], [address] [place] [address] Social History Tobacco Use Types [...] documented in this encounter Progress Notes * Luis Reich MD - 04/15/2024 2703 EDT Department of Ophthalmology / Cataract/Cornea Office Visit Note Referring physician: no referring provider Local Eye Call Taker: Family Physician (PCP): No primary care provider on file. Other Physician: History of Present Illness: Chief Complaint Patient presents with Eye Problem HPI Referred by Dr. 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 She developed left eye redness and discomfort on Friday, 04/12 (three days ago), and started treatment with indomethacin, with improved symptoms over the following couple of days. She did not use the medication today because of this appointment. She sees the senior chemist, Dr. Perrin - workup has shown no underlying systemic cause of her recurrent episodes of ocular inflammation. There has been discussion of starting treatment with methotrexate, which she has deferred. She develops eye inflammation about once per month, and notes that indomethacin has been effective for treating the condition, which symptoms often resolving after a few days of treatment. She is tolerating treatment with the medication well. She has no known history of eye surgery, disease or trauma, and does not use ophthalmic medications. EXAMINATION: Base Eye Exam Visual Acuity (Snellen - Linear) Right Left Dist sc 20/20 -1 20/20 Tonometry (iCare, 9:52) Right Left Pressure 22 17 Pupils Pupils Dark Light Shape React APD Right PERRL 4 3 Round Brisk None Left PERRL 4 3 Round Brisk None Visual Swann Right Left Full Full Extraocular Movement Right Left Full, Ortho Full, Ortho Neuro/Psych Oriented x3: Yes Mood/Affect: Normal Slit Lamp and Fundus Exam Slit Lamp Exam Right Left Lids/Lashes Normal, no blepharitis mild Ptosis Conjunctiva/Sclera White and quiet 1+ Injection nasally Cornea Clear, No Fluorescein uptake Pannus from 6-10 o'clock 1.0 mm onto the cornea Anterior Chamber Deep and quiet Deep and quiet Iris Round and reactive Round and reactive Lens Clear Clear OPHTHALMOLOGY TESTING: [To insert test results, first enter the results in Doc Flowsheet and then use dot phrase .OPHTESTEXAM to choose the results module(s) to pull into this note] PENTACAM Report Test done: Pentacam corneal topography Indications: Corneal pannus left eye Findings: Right Eye: Left Eye: 1.0 D regular corneal astigmatism, with steep axis 85 degrees, Kmax 43.2 D, normal thickness and elevation maps; thinnest location 607 microns 1.5 D regular corneal astigmatism, with steep axis 97 degrees, Kmax 43.6 D, normal thickness and elevation maps; thinnest location 607 microns Original test to be found in patients shadow chart IMPRESSION / PLAN: Encounter Diagnoses Name Primary? 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 If progression of corneal vascularization occurs, it could become visually significant, and long-term treatment with topical or systemic immune suppressing medications could be considered. She is considering starting systemic immune suppressing medications to prevent recurrence of eye inflammation. 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 Plan: Plan follow-up in 3 months with IOP check. She will follow-up with Dr. Perrin (Rheumatology) as planned, to determine if additional systemic workup is indicated, and for discussion of treatment with systemic immune suppressing medications (which she has deferred so far). She will continue using indomethacin on a prn basis as she is using the medication now, to treat recurrences of eye inflammation. Scribe Attestation: I am scribing for Luis Reich MD while he is personally performing the service. KAITLYN Leiva (Scribe) Time spent: documented in this encounter Plan of Treatment Upcoming Encounters Date Type Department Care Team (Late st Contact Info) Description 07/22/2024 14:00 EST Office Visit [facility] Ophthalmology - Main [address] [address] Luis Reich MD [address] [facility], [address] [place] [address] documented as of this encounter Visit Diagnoses Diagnosis Eye inflammation- Primary Other ill-defined disorder of eye Corneal pannus of left eye Pannus (corneal) documented in this encounter Eye Exam Visual Acuity (Snellen - Linear) Right eye Left eye Dist sc 20/20 -1 20/20 Tonometry (iCare, 9:52) Right eye Left eye Pressure 22 17 Pupils Pupils Dark Light Shape React APD Right eye PERRL 4 3 Round Brisk None Left eye PERRL 4 3 Round Brisk None Visual Swann Right eye Left eye Full Full Extraocular Movement Right eye Left eye Full, Ortho Full, Ortho Neuro/Psych Oriented x3: Yes Mood/Affect: Normal Slit Lamp Exam Right eye Left eye Lids/Lashes Normal, no blepharitis mild Ptos is Conjunctiva/Sclera White and quiet 1+ Injection nasally Cornea Clear, No Fluorescein uptake León nus from 6-10 o'clock 1.0 mm onto the cornea Anterior Chamber Deep and quiet Deep and quiet Iris Round and reactive Round and pb ctive Lens Clear Clear Care Teams Building Admin Relationship Specialty Start Date End Date Bianca Snow MD PCP - General 08/12/17 05/03/24 documented as of this encounter
--- OUTSIDE RECORDS SUMMARY | 2024-06-25 00:22 | XMS_ITS | Encounter Summary ---
Author Organization [facility] Address [address] [place] [address] Care Team Providers Care Installer Soft Top Name Role Phone Bianca Snow MD Primary Care Provider Unavailabl e Reason for Visit * Reason Onset Date Comments Eye Problem 06/06/2023 Encounter Details Date Type Department Care Team (Late st Contact Info) Description 06/06/2023 Telephone [facility] Ophthalmology - [address] [id number] Delaney Reyes MD [address] [place] [address], [address] [place] [address] Eye Problem Social History Tobacco Use Types Packs/Day Years [...] Take 1 Capsule by mouth 3 times daily for 7 days. 21 Capsule 06/06/2023 3 documented in this encounter Miscellaneous Notes * Telephone Encounter - Ruperto Green RN - 06/06/2023 1015 EST Per DJD, pt should take indomethacin as prescribed previously.crmd and verified pharmacy, script qued and sent for review. Chelo Green RN 06/06/2023 10:16 * Telephone Encounter - Ruperto Green RN - 06/06/2023 0928 EST 32 y.o. As of 06/06/2023 9:28: Nature of problem? Left eye inflamed, swollen and blood shot. This has happened in the past. 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 Do you have establish eye care? LH Onset and Duration of problem? wed Is this an injury or trauma? no Pain? Describe the type of pain you are having (sharp, dull, etc) Minor pain, soreness Have you recently had eye surgery? no Are you having new or changed flashes/and or floaters? no Any increased sensitivity to light? no Any loss of vision/curtain/darkness/veil? no Any change in vision/double vision/blurred? no Any redness and/or drainage (color)? Redness and tearing Please list any over the counter or prescription eye drops that patient is using? no Are you Diabetic? no Do you wear contact lenses? No Any other pertinent information? Wants indomycin Would you be able to come in today if the provider needed to see you? no How long would it take you to get to our office? 1.5 hrs What is the best phone number for us to speak to you? [phone] (VERIFY THE PHONE NUMBERS REGARDLESS OF WHAT IS IN THE SYSTEM.) Please list the next appointment or due date. [facility] Chelo Green RN 06/06/2023 9:32 * Telephone Encounter - Loyda Slaughter - 06/06/2023 0908 EST Which Eye? Right Nature of problem? Pt is having a flare up Scleritis and was told to call when it happened and would like to know if can call in a RX Indomethacin at the [facility] in [facility]. Onset and Duration? 2 days Can the patient come to clinic? ? How long would it take? 2 hrs documented in this encounter Plan of Treatment Upcoming Encounters Date Type Department Care Team (Late st Contact Info) Description 07/22/2024 14:00 EST Office Visit [facility] Ophthalmology - [address] [address] Luis Reich MD [address] [facility], [address] [place] [address] documented as of this encounter Visit Diagnoses Not on filedocumented in this encounter Care Teams Installer Soft Top Relationship Specialty Start Date End Date Bianca Snow MD PCP - General 08/12/17 05/03/24 documented as of this encounter
--- OUTSIDE RECORDS SUMMARY | 2024-06-25 00:22 | XMS_ITS | Encounter Summary ---
Author Organization [facility] Address [address] [place] [address] Care Team Providers Care Wool Classer Name Role Phone Bianca Snow MD Primary Care Provider Unavailabl e Unknown, Provider Primary Care Provider Unava ilable Encounter Details Date Type Department Care Team (Latest Contact Info) Description 04/12/2020 Lab Requisition [facility] Pathology & Laboratory Medicine [address] [address] Jayne Durant FNP [address] [facility] [address] [place] [phone] Encounter for general adult medical examination without abnormal findings; Encounter for screening for malignant neoplasm of cervix; Encounter for gynecological examination (general) (routine) without abnormal findings Social History Tobacco Use [...] 07/22/2024 14:00 EST Office Visit [facility] Ophthalmology - [address] [phone] Luis Reich MD [address] [facility], [address] [place] [phone] documented as of this encounter Procedures Procedure Name Priority Date/Time Associated Diagnosis Comments PAP TEST Today 04/07/2020 12:00 EDT Encounter for general adult medical examination without abnormal findings Encounter for screening for malignant neoplasm of cervix Encounter for gynecological examination (general) (routine) without abnormal findings documented in this encounter Results * PAP TEST (04/07/2020 12:00 EDT) Specimens A. Cervix and/or Endocervix , ThinPrep Imaging System with Manual Evaluation 04/18/2020 11:09 EDT [facility] Specimen Adequacy Satisfactory for Evaluation - transformation zone component present Scant squamous epithelial component 04/18/2020 11:09 EDT [facility] General Categorization Negative for intraepithelial lesion or malignancy 04/18/2020 11:09 EDT [facility] Attestation . 04/18/2020 11:09 T [facility] at 1109 Clinical History See below 04/18/20 11:09 T [facility] Performing Lab [facility] 04/18/2020 11:09 T [facility] Scanned Images 04/18/2020 11:09 EDT [facility] Papanicolaou smear specimen (specimen) CERVIX UTERI STRUCTURE / Unknown 04/07/2020 12:00 EDT 04/12/2020 12:26 EDT Jayne SANCHEZ PATHOLOGY ORDERABLES Final Resul t [facility] [address] [place] [address] documented in this encounter Visit Diagnoses Diagnosis Encounter for general adult medical examination without abnormal findings Unspecified general medical examination Encounter for screening for malignant neoplasm of cervix Screening for malignant neoplasm of the cervix Encounter for gynecological examination (general) (routine) without abnormal findings documented in this encounter Care Teams Wool Classer Relationship Specialty Start Date End Date Bianca Snow MD PCP - General 08/12/17 05/03/24 Unknown, Provider, PCP - General 06/13/24 documented as of this encounter
--- OUTSIDE RECORDS SUMMARY | 2024-06-25 00:22 | XMS_ITS | Encounter Summary ---
Author Organization [facility] Address [address] [place] [address] Care Team Providers Care Jewel Bearing Maker Name Role Phone Myron Henry MD Primary Care Provider [phone] Encounter Details Date Type Department Care Team (Latest Contact Info) Description 04/22/2017 10:15 EDT - 04/22/2017 23:59 EDT Hospital Encounter [address] [address] Unknown, Provider, Discharge Disposition: Home or Self Care Social History Tobacco Use Types Packs/Day Years Used Date Smoking Tobacco: Never Assessed Comments Unknown Sex and Gender Information Value Date Recorded Sex Assigned at Not on file Legal Sex Female 18:29 EST Gender Identity Female 08/01/2022 11:33 EST Sexual Orientation Not on file documented as of this encounter Discharge Disposition Disposition Code Departure Means Destination Home or Self Usp documented in this encounter Plan of Treatment Upcoming Encounters Date Type Department Care Team (Late st Contact Info) Description 07/22/2024 14:00 EST Office Visit [facility] Ophthalmology - [facility] [address] [place], [place] [address] Luis Reich MD [address] [facility], [address] [place] [address] documented as of this encounter Visit Diagnoses Not on filedocumented in this encounter Care Teams Jewel Bearing Maker Relationship Specialty Start Date End Date Myron Henry MD [address] [place] [address] [place] [address] PCP - General 07/27/10 08/11/17 documented as of this encounter
--- OUTSIDE RECORDS SUMMARY | 2024-06-25 00:22 | XMS_ITS | Encounter Summary ---
Author Organization [facility] Address [address] [place] [address] Care Team Providers Care Readers' Advisory Service Librarian Name Role Phone Bianca Snow MD Primary Care Provider Unavailabl e Reason for Referral * Radiology Services (Routine/Next Available) - Authorization Not Required Specialty Diagnoses / Procedures [facility] Referred To Contact Diagnoses Scleritis of left eye Procedures XR CHEST 2 VIEWS Lopez Perrin MBBS [address] [address] Phone: tel: fax: [facility] [place] Referral ID Status Reason Start Date Expiration Date Visits Requested Visits Authorized [id number] Authorization Not Required 04/20/2024 1 1 Reason for Visit * Reason Comments Follow-up Scleritis- Taking in domethacin helps with her flares. Has had current flare. Encounter Details Date Type Department Care Team (Late st Contact Info) Description 04/20/2024 10:45 EDT Office Visit [facility] Rheumatology [address] [place] [address] Lopez Perrin MBBS [address] [address] Scleritis of left eye (Primary Dx) Social History Tobacco Use Types [...] Time Taken Comments Blood Pressure 112/74 04/20/2024 105 EDT Pulse 64 04/20/2024 1053 EDT Temperature 36.8 ??C (98.2 ??F) 04/20/2024 105 EDT Respiratory Rate - - Oxygen Saturation - - Inhaled Oxygen Concentration - - Weight 68.5 kg (151 lb) 04/20/2024 105 EDT Height 170 cm (5' 6.93) 04/20/2024 1053 EDT Body Mass Index 23.7 04/20/2024 1053 EDT documented in this encounter Functional Status * [...] * Patient Instructions* Lopez Perrin MBBS - 04/20/2024 10:45 EDT Images from the original note were not included. AZATHIOPRINE (IMURAN) - Patient Fact Sheet WHAT IS IT? Azathioprine (Imuran) is used to treat dermatomyositis, systemic lupus erythematosus (lupus), inflammatory bowel disease, vasculitis (inflammation of the blood vessels), rheumatoid arthritis, as wellas other inflammatory conditions. It suppresses the immune system by interfering with DNA synthesis (the creation of DNA molecules). It is also used in combination with other medications to suppress the immune system after organ transplantation to prevent rejection of transplanted organs. HOW TO TAKE IT Azathioprine is usually taken orally (in doses between 50-150mg), once or divided twice daily. The initial dose for rheumatoid arthritis is approximately 1 milligram/kilogram (mg/kg) of body weight. The dose can be increased every 1-2 months, up to a maximum dose of 2.5 mg/kg of body weight, or approximately 75 to 150 mg given twice a day. A benefit in arthritis or other conditions may appear as early as 6-8 weeks. It may take up to 12 weeks to notice a full effect. SIDE EFFECTS The most common side effects of azathioprine can involve the gastrointestinal tract (which includesthe stomach, intestines, liver and pancreas) and the blood cells. Taking the medication twice dailyinstead of all at once, or taking it after eating, may help avoid these problems. Less often, azathioprine may cause damage to the liver, pancreas or an allergic reaction that may include a flu- like illness or a rash. Azathioprine also can lower the number of infection-fighting white blood cells. Before or during treatment, your doctor may perform a blood test called TPMT activity level. TPMT helps clear the medication from your system. If you have lower amounts of TPMT, you may be at higher risk for medication toxicity. It is important to take azathioprine as directed and have regular blood tests. TELL YOUR DOCTOR You should notify your doctor if you have these symptoms while taking this medication: fever, rash,easy bruising or bleeding, or signs of an infection. If vomiting occurs, you should contact your doctor, as this may be a sign of a serious reaction. Be sure to tell your doctor about all of the medications you are taking, which may include paxl-koo-kqnxhgw medications and natural remedies. Medications that may interfere with azathioprine and potentially cause serious problems include thegout medication allopurinol (Aloprim, Zyloprim); warfarin (Coumadin); some blood pressure medications, including some angiotensin- converting enzyme (KYLE) inhibitors (Accupril or Vasotec); olsalazine (Dipentum); mesalamine (Asacol, Pentasa); and sulfasalazine (Azulfidine). Make sure to notify your other physicians while you are taking this drug. If you are or considering . Breast-feeding should be avoided while taking azathioprine because the drug canenter breast milk. Be sure to talk with your doctor before receiving any vaccines or undergoing anysurgeries while taking this medication. Live vaccines should be avoided while on this medication and you should discuss updating your vaccinations prior to starting this medication. ?? 2019 [employer] INFORMATION ON METHOTREXATE Methotrexate is one of the most effective and commonly used medications in the treatment of rheumatoid arthritis and other forms of inflammatory arthritis, and also may be used to treat lupus, inflammatory myositis, vasculitis, and some forms of childhood arthritis. It is often used in combination with other medications to treat arthritis. It is known as a disease-modifying anti- rheumatic drug (DMARD), because it not only decreases the pain and swelling of arthritis, but it also can decrease damage to joints and long-term disability +How to Take It Methotrexate comes either as pills or as a subcutaneous injection. Methotrexate is usually taken asa single dose once per week, although occasionally the dose is split into two doses, taken once perweek, to improve absorption or avoid side effects. Your doctor also may prescribe a folic acid (or folate) vitamin supplement to decrease the chance of side effects. Methotrexate should not be taken if kidney or liver function is not normal. Alcohol significantly increases the risk for liver damagewhile taking methotrexate, so alcohol should be avoided. Regular laboratory monitoring is required to monitor blood counts and your liver while taking methotrexate. Improvements in arthritis and other conditions usually are first seen in three - six weeks. The full benefit of this drug may not be seen until after 12 weeks of treatment. +Side Effects Methotrexate can lower the ability of your immune system to fight infections. If you develop symptoms of an infection while using this medication, you should stop it and contact your doctor. The mostcommon side effects are gastrointestinal upset and elevations of liver function tests. About 1 - 3% of patients develop mouth sores (called stomatitis), rash, diarrhea, and abnormalitiesin blood counts. Some side effects do not cause symptoms, so it is important to have routine blood tests performed every 8 - 12 weeks. Methotrexate may cause cirrhosis (scarring) of the liver, but this side effect is rare and most likely to occur in patients who already have liver problems or are using alcohol or taking other drugs that are toxic to the liver. Lung problems (persistent cough or unexplained shortness of breath) canoccur rarely when taking methotrexate. Slow hair loss is seen in some patients, but hair grows backwhen the person stops taking this medication. This can often be managed by taking folic acid. It isimportant to remember that most patients do not experience side effects, and that, for those who do, many of the minor side effects will improve with time. +Tell Your Doctor You should contact your doctor of you develop symptoms of an infection, such as a fever or cough, or if you think you are having any side effects. Be sure to let your doctor know if you are ,planning to get , or if you are . Methotrexate treatment should be discontinued for at least three months before attempting to become . Even though methotrexate should not be taken during , it does not reduce a woman's chance of becoming in the future.Men taking methotrexate should talk to their physician prior to attempts to conceive. If you are planning on having surgery or will be receiving chemotherapy or radiation therapy, talk to your doctorfirst. ?? 2017 [employer] * Attachments The following attachments cannot be sent through Care Everywhere. * Hip Bursitis: Exercises (Frisian) * Hip Bursitis (Frisian) documented in this encounter Progress Notes * Lopez Perrin MBBS - 04/20/2024 1045 EDT [facility] [place] Follow-up Visit Date of Service: 04/20/2024 Patient ID Kandi Mireles Chief Compliant: Chief Complaint Patient presents with Follow-up Scleritis- Taking indomethacin helps with her flares. Has had current flare. Subjective / HPI: Kandi Mireles is an 32-year-old woman with a background of scleritis vs. episcleritis who presented to [facility] [place] for a follow up visit. Ms. Mireles presented to [facility] [place]ology 08/2022 with a 5 - 6 year history of acute onset unilateral eye pain (bruise-like in character), redness, photosensitivity, irritation and eye watering. Episodes occurred approximately once a month and are responsive to topical steroids and ibuprofen. Additionally describes a 15-year history of b/l hip and b/l knee pain exacerbated by activity. 1 -2 hours of hand morning stiffness without joint pain. No transient joint swelling. Family history of ANNE-MARIE. On examination left eye episcleritis, no joint tenderness, normal ROM and no synovitis. Labs remarkable for: WILMA 1:160. RF and CCP negative. CRP and ESR wnl. C3/C4 wnl. Lyme negative. Thyroid autoantibodies negative. Urinalysis unremarkable. Chest x-ray reported no hilar adenopathy. Patient diagnosed with Episcleritis vs. Scleritis by ophthalmology [feel that presentation is scleritis based on clinical findings but episcleritis based on treatment response]. Overall low suspicion for underlying systemic autoimmune process. Methotrexate discussed and declined. 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 On assessment today: - Flares of diffuse eye erythema / pain left eye pain occurring every 3 - 4 weeks. Symptoms associated with photophobia. Denies changes in visual acuity. Denies floaters. Identified triggers (ETOH). Symptoms responsive to 4 - 5 days of indomethacin. - Morning stiffness involving in hands lasting 1 - 2 hours. Stiffness exacerbated by changes in barometric pressure. - Lateral hip pain with hiking. Interrupts sleep. - Denies rash, sinus congestion, hearing loss, oral ulcers, genital ulcers, abdominal pain or bloody diarrhea - Miscarriage earlier this Summer (< 12 weeks) Review of Systems: A complete 10 point ROS was performed and pertinent positive and negative findings listed in HPI, otherwise negative. Medications and allergies reviewed Problem list reviewed Past medical history and Past surgical history reviewed Social history and family history reviewed Objective: Physical Exam BP 112/74 (BP Cuff Location: Left arm, BP Cuff Sizes: Adult, regular) Pulse 64 Temp 36.8 ??C (98.2 ??F) Ht 170 cm (66.93) Wt 68.5 kg (151 lb) BMI 23.70 kg/m?? Visit via televideo. General: No acute distress. Alert, fully oriented. HEENT: No erythema Mucus membranes moist; oropharynx clear. Neck symmetrical, trachea midline Lungs: Normal expansion. Clear to auscultation bilaterally with no crackles, crepitations or wheeze. Extremities: Extremities without cyanosis or edema. Skin: [...] palpation of femoral epicondyle or tibial tuberosity. Investigations: I have independently reviewed labs / imaging Labs: - Reviewed Imaging: - Reviewed Questionnaires: 04/20/2024 11:01 RAPID3 SCORES AND INTERPRETATION Functional Status 0.7 Pain Tolerance 2 Global Estimate 2 RAPID3 4.7 Interpretation Low RAPID3 Score: As documented by Nurses/MAs during this visit and reviewed by me. Assessment & Plan: Eye inflammation: Work up to date not suggestive of systemic underlying autoimmune disease. Ophthalmology feel that presentation is scleritis based on clinical findings but episcleritis based on treatment response. On assessment today describes recurrent left eye inflammation responsive to indomethacin. Additionally described hand stiffness and lateral hip pain. On examination normal ROM without synovitis. Willexpand re-assess for autoimmune process and provide information on csDMARD therapy. - Order CBC, CMP, C3/C4, RPR, quantiferon, ANCA, CRP, ESR, RF and CCP - Order CXR - Given frequency of episodes discussed csDMARD therapy. Recommend azathioprine [2mg/kg] (methotrexate and mycophenolate contraindicated due to family planning). No necrotizing scleritis requiring prednisone taper / rituximab. Small uncontrolled case series report TNFi effectiveness. Trochanteric bursitis: - Home exercises. If no improvement refer to physical therapy - Regular NSAIDs (do not combine with indomethacin) Health maintenance: - Hepatitis serologies negative (2020). Follow up with Dr. Perrin in 3-months [facility] TAAR Pierce, 04/20/2024 11:34 I spent a total of 30 minutes on the date of this encounter meeting with the patient and reviewing documentation/coordinating care as described in the above note. No procedures were performed at the time of the visit. documented in this encounter Miscellaneous Notes * Result Encounter Note - Lopez Perrin MBBS - 04/20/2024 1045 EDT Results quicknote: RPR and RF negative documented in this encounter Plan of Treatment Upcoming Encounters Date Type Department Care Team (Late st Contact Info) Description 07/22/2024 14:00 EST Office Visit [facility] Ophthalmology - [address] [id number] Luis Reich MD [address] [facility], [address] [place] [address] Scheduled Orders Name Type Priority Associated Diagnoses Orde r Schedule XR CHEST 2 VIEWS Imaging Routine Scleritis of left eye Expected: 04/20/2024, Expires: 04/20/2025 documented as of this encounter Procedures Procedure Name Priority Date/Time Associated Diagnosis Comments SYPHILIS RPR SCREEN W/REFLEX Routine 04/20/2024 11:44 EDT Scleritis of left eye RHEUMATOID SCREEN/TITRE Routine 04/20/2024 11:44 EDT Scleritis of left eye documented in this encounter Results * RHEUMATOID SCREEN/TITRE (04/20/2024 11:44 EDT) Pathologist [facility] Rheumatoid Factor <8.6 <12.0 IU/mL 04/20/2024 21:13 EDT [facility] Blood VENOUS BLOOD / Unknown Venipuncture / Unknown 04/20/2024 11:44 EDT 04/20/2024 12:10 EDT Lopez PACHECO CHEMISTRY & BLOOD GAS ORDERAB LES Final Result [facility] [address] [place] [id number] * CCP ANTIBODIES (04/20/2024 11:44 EDT) CCP Antibodies <2.5 <5.0 U/mL 04/21/2024 9:50 EDT [facility] Blood VENOUS BLOOD / Unknown Venipuncture / Unknown 04/20/2024 11:44 EDT 04/20/2024 12:10 EDT Lopez PACHECO IMMUNOLOGY AND SEROLOGY ORDER KATTY Final Result Performing Organization Address City/[facility]/ZIP Co de Phone Number [facility] [address] [place] [address] * C4 COMPLEMENT (04/20/2024 11:44 EDT) [facility] C4 Complement 21 13 - 39 mg/dL 04/21/2024 10:08 EDT [facility] Blood VENOUS BLOOD / Unknown Venipuncture / Unknown 04/20/2024 11:44 EDT 04/20/2024 12:10 EDT Lopez PACHECO CHEMISTRY & BLOOD GAS ORDERAB LES Final Result Performing Organization Address City/[facility]/ZIP Co de Phone Number [facility] [address] [place] [address] * C3 COMPLEMENT (04/20/2024 11:44 EDT) [facility] C3 Complement 106 81 - 157 mg/dL 04/21/2024 10:08 EDT [facility] Blood VENOUS BLOOD / Unknown Venipuncture / Unknown 04/20/2024 11:44 EDT 04/20/2024 12:10 EDT Lopez PACHECO CHEMISTRY & BLOOD GAS ORDERAB LES Final Result Performing Organization Address City/[facility]/ZIP Co de Phone Number [facility] [address] [place] [address] * ANCA VASCULITIS PROFILE IFA WITH MPO AND PR3 (04/20/2024 11:44 EDT) [facility] Lab ANCA Interpretation Negative Negative 04/21/2024 13:33 EDT [facility] Comment: No titer performed, ANCA Screen is negative. Results were obtained with the [employer] NOVA Lite ANCA kit by indirect immunofluorescence. Myeloperoxidase Antibody, IgG <0.96 <6.00 IU/mL 04/21/2024 13:33 EDT [facility] Comment:Results were obtaine d with the [employer] Flash MPO chemiluminescent immunoassay. Values obtained with different manufacturers' assay methods must not be used interchangeably. The magnitude of the reported antibody levels cannot always be corrrelated to an endpoint titer. Proteinase 3 Antibody, IgG <0.6 <5.0 IU/mL 04/21/2024 13:33 EDT [facility] Comment:Results were obtaine d with the [employer] Flash PR3 chemiluminescent immunoassay. Values obtained with different manufacturers' assay methods must not be used interchangeably. The magnitude of the reported antibody levels cannot always be corrrelated to an endpoint titer. Blood VENOUS BLOOD / Unknown Venipuncture / Unknown 04/20/2024 11:44 EDT 04/20/2024 12:10 EDT Lopez Perrin [facility] IMMUNOLOGY AND SEROLOGY ORDER KATTY Final Result [facility] [address] [place] [id number] * SYPHILIS RPR SCREEN W/REFLEX (04/20/2024 11:44 EDT) [facility] Rapid Plasma Reagin Screen (RPR) Nonreactive Nonreactive 04/22/2024 8:17 EDT [facility] Blood VENOUS BLOOD / Unknown Venipuncture / Unknown 04/20/2024 11:44 EDT 04/20/2024 12:08 EDT Lopez Perrin [facility] IMMUNOLOGY AND SEROLOGY ORDER KATTY Final Result [facility] [address] [place] [address] * C REACTIVE PROTEIN (04/20/2024 11:44 EDT) [facility] C-Reactive Protein <5.0 <10.0 mg/L 04/20/2024 12:56 [facility] Blood VENOUS BLOOD / Unknown Venipuncture / Unknown 04/20/2024 11:44 EDT 04/20/2024 12:08 EDT Lopez PACHECO CHEMISTRY & BLOOD GAS ORDERAB LES Final Result [facility] [address] [place] [address] * (ABNORMAL) COMPLETE BLOOD COUNT AND DIFFERENTIAL (04/20/2024 11:44 EDT) [facility] WBC 7.61 4.00 - 12.40 K/cmm 04/20/2024 12:15 [facility] RBC 4.39 3.86 - 5.04 M/cmm 04/20/2024 12:15 [facility] Hemoglobin 13.2 11.6 - 15.2 g/dL 04/20/2024 12:15 [facility] HCT 40.1 34.9 - 44.4 % 04/20/2024 12:15 [facility] MCV 91 81 - 98 fL 04/20/2024 12:15 [facility] MCH 30.1 26.7 - 33.3 pg 04/20/2024 12:15 [facility] MCHC 32.9 32.1 - 35.9 g/dL 04/20/2024 12:15 [facility] RDW-CV 12.0 <14.7 % 04/20/2024 12:15 [facility] RDW-SD 40.5 <50.4 fl 04/20/2024 12:15 [facility] PLT 345 141 - 377 K/cmm 04/20/2024 12:15 [facility] MPV 9.8 9.5 - 12.7 fL 04/20/2024 12:15 [facility] % Neutrophils 55.7 Not Indicated % 04/20/2024 12:15 [facility] % Lymphocytes 33.2 Not Indicated % 04/20/2024 12:15 [facility] % Monocytes 5.3 Not Indicated % 04/20/2024 12:15 [facility] % Eosinophils 3.8 Not Indicated % 04/20/2024 12:15 [facility] % Basophils 1.7 Not Indicated % 04/20/2024 12:15 [facility] % Immature Grans 0.3 <0.9 % 04/20/2024 12:15 [facility] Absolute Neutrophils 4.24 2.20 - 8.85 K/cmm 04/20/2024 12:15 [facility] Absolute Lymphocytes 2.53 1.09 - 3.30 K/cmm 04/20/2024 12:15 [facility] Absolute Monocytes 0.40 0.10 - 0.80 K/cmm 04/20/2024 12:15 [facility] Absolute Eosinophils 0.29 0.03 - 0.61 K/cmm 04/20/2024 12:15 [facility] ABS Basophils 0.13(H) 0.01 - 0.11 K/cmm 04/20/2024 12:15 [facility] Absolute Immature Grans 0.02 0.00 - 0.06 K/cmm 04/20/2024 12:15 [facility] Type of Differential: Auto 04/20/2024 12:15 [facility] Blood VENOUS BLOOD / Unknown Venipuncture / Unknown 04/20/2024 11:44 EDT 04/20/2024 12:13 EDT us Lopez PACHECO PACKAGES & DNA PROBE ORDERABL ES Final Result [facility] [address] [place] [phone] * COMPREHENSIVE METABOLIC PANEL (CMP) (04/20/2024 11:44 EDT) Sodium 139 136 - 145 mmol/L 04/20/2024 12:56 [facility] Potassium 4.4 3.5 - 5.0 mmol/L 04/20/2024 12:56 [facility] Chloride 102 96 - 110 mmol/L 04/20/2024 12:56 [facility] CO2 Total 29 22 - 32 mmol/L 04/20/2024 12:56 [facility] Glucose 83 70 - 99 mg/dl 04/20/2024 12:56 [facility] BUN 12 10 - 26 mg/dL 04/20/2024 12:56 [facility] Creatinine 0.67 0.52 - 1.04 mg/dL 04/20/2024 12:56 [facility] eGFR 119 >60 mL/min/1.7 3m2 04/20/2024 12:56 [facility] Total Protein 7.4 6.3 - 8.2 g/dL 04/20/2024 12:56 [facility] Albumin 4.7 3.4 - 4.9 g/dL 04/20/2024 12:56 [facility] Alkaline Phosphatase 60 38 - 126 U/L 04/20/2024 12:56 [facility] AST 25 15 - 46 U/L 04/20/2024 12:56 [facility] ALT 18 <35 U/L 04/20/2024 12:56 [facility] Bilirubin, Total 0.8 <1.4 mg/dL 04/20/20 12:56 [facility] Calcium 9.8 8.5 - 10.5 mg/dL 04/20/2024 12:56 [facility] Albumin/Globulin Ratio 1.7 1.0 - 2.5 04/20/2024 12:56 EDT [facility] Anion Gap 8 5 - 14 mmol/L 04/20/2024 12:56 EDT [facility] Blood VENOUS BLOOD / Unknown Venipuncture / Unknown 04/20/2024 11:44 EDT 04/20/2024 12:08 EDT us Lopez PACHECO CHEMISTRY & BLOOD GAS ORDERAB LES Final Result [facility] [address] [place] [address] documented in this encounter Visit Diagnoses Diagnosis Scleritis of left eye- Primary Scleritis, unspecified documented in this encounter Orders Lab Orders Without Results Count Last Ordered D ate First Ordered Date SED RATE 1 04/20/2024 documented in this encounter Care Teams Readers' Advisory Service Librarian Relationship Specialty Start Date End Date Bianca Snow MD PCP - General 08/12/17 05/03/24 documented as of this encounter
--- OUTSIDE RECORDS SUMMARY | 2024-06-25 00:22 | XMS_ITS | Encounter Summary ---
Author Organization [facility] Address [address] [place] [address] Care Team Providers Care Junior Data Analyst Name Role Phone Bianca Snow MD Primary Care Provider Unavailabl e Unknown, Provider Primary Care Provider Unava ilable Encounter Details Date Type Department Care Team (Late st Contact Info) Description 07/25/2022 Lab Requisition [facility] Pathology & Laboratory Medicine - [address] [id number] Outr Resulting Lab, Provider Social History Tobacco [...] Info) Description 07/22/2024 14:00 EST Office Visit [facility] Ophthalmology - [address] [phone] Luis Reich MD [address] [place] [address], [address] [place] [address] documented as of this encounter Procedures Procedure Name Priority Date/Time Associated Diagnosis Comments HOLD SST Today 07/24/2022 12:24 EST RHEUMATOID FACTOR Today 07/24/2022 12: 24 EST ANTI NUCLEAR AB (WILMA), IFA Today 07/24/2022 12:24 EST documented in this encounter Results * HOLD SST (07/24/2022 12:24 EST) Hold Hold 07/25/2022 19:[address] [facility] Blood VENOUS BLOOD / Unknown 07/24/2022 12:24 EST 07/25/2022 17:49 EST us Provider Outr Resulting Lab LAB INFO SERVICE AND SUPPORT & PHONE RESULT Final Result Performing Organization Address City/[facility]/ZIP Co de Phone Number [facility] [address] [place] [address] * RHEUMATOID FACTOR (07/24/2022 12:24 EST) Pathologist [facility] Rheumatoid Factor <8.6 <12.0 IU/mL 07/25/2022 18:[address] [facility] Blood VENOUS BLOOD / Unknown 07/24/2022 12:24 EST 07/25/2022 17:45 EST us Provider Outr Resulting Lab CHEMISTRY & BLOOD GA S ORDERABLES Final Result Performing Organization Address City/[facility] Co de Phone Number [facility] [address] [place] [address] * (ABNORMAL) ANTI NUCLEAR AB (WILMA), IFA (07/24/2022 12:24 EST) WILMA Interpretation Positive(A) Negative 07/26/2022 12:[address] [facility] Comment: For titers greater than or equal to 1:160 (except the centromere and nucleolar patterns) it is recommended that specific follow-up autoantibody testing ??(such as for dsDNA and Extractable Nuclear Antigens) be performed on all diffuse and/or speckled patterns NOTE: For add-on testing dsDNA is stable for 7 days refrigerated while Extractable Nuclear Antigens are only stable for 48 hours refrigerated. WILMA Titer and Pattern 1 1:160 Speckled 07/26/2022 12:[address] [facility] Blood VENOUS BLOOD / Unknown 07/24/2022 12:24 EST 07/25/2022 17:[address] [facility] - 07/26/2022 12:40 EST Results were obtained with the R-SquaredVA NOVA Lite HEp-2 WILMA Kit by indirect immunofluorescence. us Provider Outr Resulting Lab IMMUNOLOGY AND SEROL OGY ORDERABLES Final Result Performing Organization Address City/State/[facility] Co de Phone Number [facility] [address] [place] [phone] documented in this encounter Visit Diagnoses Not on filedocumented in this encounter Care Teams Junior Data Analyst Relationship Specialty Start Date End Date Bianca Snow MD PCP - General 08/12/17 05/03/24 Unknown, MD Olga PCP - General 06/13/24 documented as of this encounter
--- OUTSIDE RECORDS SUMMARY | 2024-06-25 00:22 | XMS_ITS | Encounter Summary ---
Author Organization [facility] Address [address] [place] [address] Care Team Providers Care Head Of Stock Name Role Phone Myron Henry MD Primary Care Provider [phone] Encounter Details Date Type Department Care Team (Late st Contact Info) Description 08/01/2017 Results Only [facility] [phone] Brennen Hastings MD [address] [place] [address] Social History Tobacco Use Types Packs/Day Years [...] Info) Description 07/22/2024 14:00 EST Office Visit [facility] Ophthalmology - Main [address] [phone] Luis Reich MD [address] [facility], [address] [place] [address] documented as of this encounter Procedures Procedure Name Priority Date/Time Associated Diagnosis Comments CYTOGENETICS Routine 08/01/2017 0:00 EST documented in this encounter Results * CYTOGENETICS (08/01/2017 0:00 EST) Pathology Report: CYTOGENETICS REPORT Reports generated via electronic interface contain original data; however they are lacking the format of the original report. Caution should be taken when reading/interpret ing unformatted reports. Name: ? ROSHAN MIRELES ? Accession #: ? [id number] : ? 1990 (Age: 26) ??F ?Collect Date: ? 08/01/2017 Location: ? [facility] ? Receive Date: ? 08/02/2017 Provider: ? BRENNEN HASTINGS MD Copy to: ?ROBY BOWERS MD ? INTERPRETATION: Normal female karyotype ? Document reviewed and electronically signed by: ? ROBY BOWERS MD ? Report Date: ??08/11/2017 11:15 CLINICAL HISTORY: 26 year old female with infertility SPECIMEN: Peripheral Blood ?? TEST PERFORMED: G-banded Karyotype ?? REPORT: Cells Counted: ??20 Cells Analyzed: ??7 Cells Karyotyped: ??7 Band Resolution: ??550-700 ?? KARYOTYPE: 46,XX End of Report [facility] 08/01/2017 08/02/2017 8:4 3 EST us Brennen Hastings MD PATHOLOGY ORDERABLES Final Resu lt [facility] [address] [place] [address] documented in this encounter Visit Diagnoses Not on filedocumented in this encounter Care Teams Head Of Stock Relationship Specialty Start Date End Date Myron Henry MD [address] [place] [address] [place] [address] PCP - General 07/27/10 08/11/17 documented as of this encounter
--- OUTSIDE RECORDS SUMMARY | 2024-06-25 00:22 | XMS_ITS | Encounter Summary ---
Author Organization [facility] Address [address] [place] [address] Care Team Providers Care Performing Artist Name Role Phone Myron Henry MD Primary Care Provider [phone] Encounter Details Date Type Department Care Team (Late st Contact Info) Description 04/21/2017 Results Only [facility] [phone] Angel Solares MD [address] [place] [address] Social History Tobacco Use Types Packs/Day Years [...] Info) Description 07/22/2024 14:00 EST Office Visit [facility] Ophthalmology - Main [address] [phone] Luis Reich MD [address] [facility], [address] [place] [address] documented as of this encounter Procedures Procedure Name Priority Date/Time Associated Diagnosis Comments SURGICAL PATHOLOGY Routine 04/21/2017 16 :06 EDT documented in this encounter Results * SURGICAL PATHOLOGY (04/21/2017 16:06 EDT) Pathology Report: SURGICAL PATHOLOGY REPORT Reports generated via electronic interface contain original data; however they are lacking the format of the original report. Caution should be taken when reading/interpret ing unformatted reports. Name: ? ROSHAN MIRELES ? Accession #: ? [id number] ? : ? 1990 (Age: 26) ??F ? Collect Date: ? 04/21/2017 ? Location: ? [facility] ? Receive Date: ? 04/22/2017 ? Provider: ANGEL SOLARES MD Copy to: BONNIE SIFUENTES [facility]- ? Final Pathologic Diagnosis: UVULA, MASS, BIOPSY: - Squamous papilloma. Document reviewed and electronically signed by: Oscar Melo MD Report ??Date: 04/24/2017 13:58 By the signature above, the attending physician certifies that he/she has personally conducted a gross and/or microscopic examination of the described specimens and rendered or confirmed the above diagnosis. Specimen(s) Received: Excisional bx uvula Clinical History: Uvular mass; non-smoker; clinical diagnosis code: R22.0 Gross Description: ? Received in formalin labelled with proper patient identification (initials C, S) and uvula is an elongated cylindrical nodular soft pa-holman tissue (1.0 x 0.3 x 0.2 cm). Entirely submitted in 1. ASHLEY Cantu (ASCP) 04/22/2017 5:08 PM End of Report [facility] 04/21/2017 16:0 6 EDT 04/22/2017 16:06 EDT us Angel Solares MD PATHOLOGY ORDERABLES Final Resul t [facility] [address] [place] [address] documented in this encounter Visit Diagnoses Not on filedocumented in this encounter Care Teams Performing Artist Relationship Specialty Start Date End Date Myron Henry MD [address] [place] [address] [place] [address] PCP - General 07/27/10 08/11/17 documented as of this encounter
--- OUTSIDE RECORDS SUMMARY | 2024-06-25 00:22 | XMS_ITS | Encounter Summary ---
Author Organization [facility] Address [address] [place] [address] Care Team Providers Care Supervisor Dyer Name Role Phone Myron Henry MD Primary Care Provider [phone] Encounter Details Date Type Department Care Team (Latest Contact Info) Description 08/04/2017 9:31 EST - 08/04/2017 23:59 EST Hospital Encounter [address] [address] Unknown, Provider, MD Discharge Disposition: Home or Self Care Social [...] Code Departure Means Destination Home or Self Shelter documented in this encounter Plan of Treatment Upcoming Encounters Date Type Department Care Team (Late st Contact Info) Description 07/22/2024 14:00 EST Office Visit [facility] Ophthalmology - [facility] [address] [place], [place] [address] Luis Reich MD [address] [facility], [address] [place] [address] documented as of this encounter Visit Diagnoses Not on filedocumented in this encounter Care Teams Supervisor Dyer Relationship Specialty Start Date End Date Myron Henry MD [address] [place] [address] [place] [address] PCP - General 07/27/10 08/11/17 documented as of this encounter
--- OUTSIDE RECORDS SUMMARY | 2024-06-25 00:22 | XMS_ITS | Encounter Summary ---
Author Organization [facility] Address [address] [place] [address] Care Team Providers Care Jump Roll Operator Name Role Phone Bianca Snow MD Primary Care Provider Unavailabl e Reason for Visit * Reason Onset Date Comments Eye Problem 03/31/2023 Encounter Details Date Type Department Care Team (Late st Contact Info) Description 03/31/2023 Telephone [facility] Ophthalmology - [address] [phone] Delaney Reyes MD [address] [place] [place] [address], [address] [place] [address] Eye Problem Social History Tobacco [...] times daily for 7 days. 21 Capsule 03/31/2023 documented in this encounter Miscellaneous Notes * Telephone Encounter - Naomi Nugent MA - 04/01/2023 1125 EDT Called pt and relayed message about medication. * Telephone Encounter - Edison Chawla RN - 04/01/2023 0708 EDT Please call patient and relay message, medication sent in. Edison Chawla RN 04/01/2023 7:08 * Telephone Encounter - Delaney Reyes MD - 03/31/2023 1631 EDT Called in Rx for indomethacin 25mg three times a day x 1 week. * Telephone Encounter - Ruperto Green RN - 03/31/2023 1154 EDT Placed on desk. Chelo Green RN 03/31/2023 11:55 * Telephone Encounter - Kourtney Olivarez - 03/31/2023 1133 EDT Patient is calling in wanting to let Dr. Reyes know that she is having a flare up again. She was advised the last time she was seen that if this happens again to call our office. Patient doesn't livenear by and asked if she could talk over the phone. The flare up started today documented in this encounter Plan of Treatment Upcoming Encounters Date Type Department Care Team (Late st Contact Info) Description 07/22/2024 14:00 EST Office Visit [facility] Ophthalmology - Main [place] [address] [place], [place] [address] Luis Reich MD [address] [facility], [address] [place] [address] documented as of this encounter Visit Diagnoses Not on filedocumented in this encounter Care Teams Jump Roll Operator Relationship Specialty Start Date End Date Bianca Snow MD PCP - General 08/12/17 05/03/24 documented as of this encounter
--- OUTSIDE RECORDS SUMMARY | 2024-06-25 00:22 | XMS_ITS | Encounter Summary ---
Author Organization [facility] Address [address] [place] [address] Care Team Providers Care Boilers And Pressure Vessels Inspector Name Role Phone Bianca Snow MD Primary Care Provider Unavailabl e Reason for Visit * Reason Onset Date Comments Eye Problem 02/03/2023 Encounter Details Date Type Department Care Team (Late st Contact Info) Description 02/03/2023 Telephone [facility] Ophthalmology - [address] [address] Delaney Reyes MD [address] [place] [address], [address] [place] [address] Eye Problem Social History Tobacco [...] Telephone Encounter - Ruperto Green RN - 02/03/2023 1033 EDT Per , schedule patient for visit today. Patient scheduled for visit Chelo Green RN 02/03/2023 10:33 * Telephone Encounter - Ruperto Green RN - 02/03/2023 0925 EDT As of 02/03/2023 9:26: Nature of problem? Left eye inflmmation, has history, seen Dr. Reyes for this. Dr. Reyes wanted to see it symptoms present. episcleritis? Do you have establish eye care? Dr. Reyes Onset and Duration of problem? Intermittent 5-6 years Is this an injury or trauma? no Pain? Describe the type of pain you are having (sharp, dull, etc) 4/10 intermittent with symptoms Have you recently had eye surgery? no Are you having new or changed flashes/and or floaters? no Any increased sensitivity to light? Minor Any loss of vision/curtain/darkness/veil? no Any change in vision/double vision/blurred? no Any redness and/or drainage (color)? no Please list any over the counter or prescription eye drops that patient is using? no Are you Diabetic? no Do you wear contact lenses? No Any other pertinent information? no Would you be able to come in today if the provider needed to see you? yes How long would it take you to get to our office? 1.5hr What is the best phone number for us to speak to you? [phone] (VERIFY THE PHONE NUMBERS REGARDLESS OF WHAT IS IN THE SYSTEM.) Please list the next appointment or due date. tbd Chelo Green RN 02/03/2023 9:30 * Telephone Encounter - Loyda Slaughter - 02/03/2023 0819 EDT Which Eye? Left Nature of problem? reoccurring Issue of red inflammation and now the eye is red, pt stated that wanted to see her when her eye was red. Onset and Duration? 1 week Are you having pain? Describe the type of pain you are having (sharp, dull, etc) yes, feels like a bruise If yes, please rate pain on scale 0-10? 4 Do you have establish eye care? No Can the patient come to clinic? Yes How long would it take? 2 hrs documented in this encounter Plan of Treatment Upcoming Encounters Date Type Department Care Team (Late st Contact Info) Description 07/22/2024 14:00 EST Office Visit [facility] Ophthalmology - [address] [address] Luis Reich MD [address] [facility], [address] [place] [address] documented as of this encounter Visit Diagnoses Not on filedocumented in this encounter Care Teams Boilers And Pressure Vessels Inspector Relationship Specialty Start Date End Date Bianca Snow MD PCP - General 08/12/17 05/03/24 documented as of this encounter
--- OUTSIDE RECORDS SUMMARY | 2024-06-25 00:22 | XMS_ITS | Encounter Summary ---
Author Organization [facility] Address [address] [place] [address] Care Team Providers Care Vascular Sonographer Name Role Phone Bianca Snow MD Primary Care Provider Unavailabl e Encounter Details Date Type Department Care Team (Late st Contact Info) Description 08/23/2022 Abstract [facility] Rheumatology [address] [place] [address] Rocío Amezcua RN Social History Tobacco Use Types Packs/Day Years [...] Info) Description 07/22/2024 14:00 EST Office Visit [facility] Ophthalmology - [address] [address] Luis Reich MD [address] [facility], [address] [place] [address] documented as of this encounter Visit Diagnoses Not on filedocumented in this encounter Historical Medications * This list may reflect changes made after this encounter. vit no.129/iron/folic ( ONE DAILY ORAL) Take by mouth. cholecalciferol, Vitamin D3, 25 mcg (1,000 unit) tablet Take 1 Tablet by mouth daily. 03/05/2024 added in this encounter Care Teams Vascular Sonographer Relationship Specialty Start Date End Date Bianca Snow MD PCP - General 08/12/17 05/03/24 documented as of this encounter
--- OUTSIDE RECORDS SUMMARY | 2024-06-25 00:22 | XMS_ITS | Encounter Summary ---
Author Organization [facility] Address [address] [place] [address] Care Team Providers Care Crab Catcher Name Role Phone Bianca Snow MD Primary Care Provider Unavailabl e Reason for Referral * Consult (Routine/Next Available) - Authorization Not Required Specialty Diagnoses / Procedures Referred By Bill richards Referred To Contact Ophthalmology Diagnoses Positive WILMA (antinuclear antibody) Episcleritis of left eye Lopez Perrin MBBS Phone: tel: fax: [facility] [place] [address] Phone: tel: fax: Referral ID Status Reason Start Date Expiration Date Visits Requested Visits Authorized [id number] Authorization Not Required Specialty Services Required 09/11/2022 1 1 Question Answer Reason for Request: Other, in comments field - episcleritis Specify which eye: Left Onset/Duration (new problem)? 5 - 6 year history of monthly episcleritis Reason for Visit * Reason Comments Follow-up Encounter Details Date Type Department Care Team (Late st Contact Info) Description 09/11/2022 16:30 EST Telemedicine [facility] Rheumatology [address] [place] [address] Lopez Perrin MBBS 111 [facility] [address] [place] [address] Positive WILMA (antinuclear antibody) (Primary Dx); Episcleritis of left eye Social History Tobacco Use [...] Progress Notes * Lopez Perrin MBBS - 09/11/2022 1630 EST [facility] Rheumatology Clinic Follow-up Visit Date of Service: 09/11/2022 Patient ID Kandi Mireles Chief Compliant: Chief Complaint Patient presents with ??? Follow-up Subjective / HPI: Kandi Mireles is an 32-year-old woman with a background of episcleritis who presented to [facility] rheumatology clinic for a follow up visit. Visit via telephone. Ms. Mireles 5 - 6 year presented to [facility] rheumatology with a 5-6 year history of acute onset unilateral eye [...] transient joint swelling. Family history of ANNE-MARIE. Onexamination left eye episcleritis, no joint tenderness, normal ROM and no synovitis. Labs remarkable for: WILMA 1:160. RF and CCP negative. CRP and ESR wnl. C3/C4 wnl. Lyme negative. Thyroid autoantibodies negative. Urinalysis unremarkable. Chest x-ray reported no hilar adenopathy. Patient diagnosed with Episcleritis by ophthalmology. Overall low suspicion for underlying systemic autoimmune process. Interval history: - None On assessment today: - Resolution of left eye episcleritis with recurrence after 4 - 5 days. Symptoms responsive to ibuprofen. - Morning stiffness involving in hands lasting 1 - 2 hours. Stiffness exacerbated by changes in barometric pressure. Review of Systems: A complete 10 point ROS was performed and pertinent positive and negative findings listed in HPI, otherwise negative. ??? Medications and allergies reviewed ??? Problem list reviewed ??? Past medical history and Past surgical history reviewed ??? Social history and family history reviewed Objective: Physical Exam There were no vitals taken for this visit. Visit via televideo. Investigations: I have independently reviewed labs / imaging Labs: - Reviewed Imaging: - Reviewed Questionnaires: No flowsheet data found. RAPID3 Score: As documented by Nurses/MAs during this visit and reviewed by me. Assessment & Plan: Episcleritis: Seen by rheumatology 2022 with a 5 - 6 year history of recurrent episcleritis occurring approximately once a month and are responsive to topical steroids / ibuprofen. 1 -2 hours of handmorning stiffness without joint pain. Family history of ANNE-MARIE. Physical examination identified no synovitis. Labs remarkable for WILMA 1:160. RF and CCP negative. CARMITA negative. Urinalysis unremarkable. Chest x-ray reported no hilar adenopathy. Low suspicion for underlying autoimmune disease. On assessment today describes recurrent left eye episcleritis responsive to ibuprofen. - Given frequency of episodes discussed trial of methotrexate. Explained risks of MTX use: skin rash, oral ulcers, nausea, fatigue, infections, low blood counts and liver enzyme elevation. Educated on teratogenic nature of MTX and counseled to use two forms of contraception. Patient provided with information on MTX via [employer]. Patient apprehensive of side effects of methotrexate and family incomplete. Offered referral to ophthalmology. Health maintenance: - Hepatitis serologies negative (2020). Follow up with Dr. Perrin in 6-months TARA Pierce, 09/11/2022 16:25 Prior to starting the visit verbal consent was obtained. This visit was conducted by Telephone. I spent a total of 20 minutes with Kandi Mireles as described in the progress note. documented in this encounter Plan of Treatment Upcoming Encounters Date Type Department Care Team (Late st Contact Info) Description 07/22/2024 14:00 EST Office Visit [facility] Ophthalmology - [address] [phone] Luis Reich MD 111 [facility], [address] [place] [address] Scheduled Referrals Name Type Priority Associated Diagnoses Order Schedule AMB CONS/FOLLOW UP OPHTHALMOLOGY Outpatient Referral Routine/Next Available Positive WILMA (antinuclear antibody) Episcleritis of left eye Expected: 09/18/2022 (Approximate), Expires: 09/12/2023 documented as of this encounter Visit Diagnoses Diagnosis Positive WILMA (antinuclear antibody)- Primary Other and unspecified nonspecific immunological findings Episcleritis of left eye Scleritis, unspecified documented in this encounter Care Teams Crab Catcher Relationship Specialty Start Date End Date Bianca Snow MD PCP - General 08/12/17 05/03/24 documented as of this encounter
--- OUTSIDE RECORDS SUMMARY | 2024-06-25 00:22 | XMS_ITS | Encounter Summary ---
Author Organization [facility] Address [address] [place] [address] Care Team Providers Care Manager Floral Name Role Phone Bianca Snow MD Primary Care Provider Unavailabl e Reason for Visit * Reason Comments Eye Problem Encounter Details Date Type Department Care Team (Late st Contact Info) Description 02/03/2023 12:45 EDT Office Visit [facility] Ophthalmology - [address] [address] Delaney Reyes MD [address] [place] [address], [address] [place] [address] Social History Tobacco Use Types [...] times daily for 7 days. 21 Capsule 02/03/2023 3 documented in this encounter Progress Notes * Delaney Reyes MD - 02/03/2023 9182 EDT Chief Complaint Patient presents with ??? Eye Problem HPI ERV, hx Episcleritis left eye, left eye red and eye pain 2/10 x 1 week, no discharge, no vision change, using Ibuprofen prn, no gtts HPI The patient is a 32 y.o. female ERV, hx Episcleritis vs scleritis left eye, left eye red and eye pain 2/10 x 1 week, no discharge, no vision change, using Ibuprofen prn, no gtts. When I last saw her,she was in between flares and I advised her to call with her next flare. She has undergone eval by Dr. Perrin in rheumatology which was notable only for a positive WILMA at 1:160 speckled. Prior to thisepisode, she had been on prednisone orally for possible poison fabiana and this episode flared immediately upon completion of that course. ROS Constitutional: ENT/Mouth Cardiovascular: Respiratory: Gastrointestinal: Genitourinary: Musculoskeletal: Integumentary: Neurologic: Psychiatric: Endocrine: Hematologic: Immunologic: Supervisor Marble: Exposures: Other: Attestation: Allergies include: Pollen extracts and Cat dander Patient Active Problem List Diagnosis ??? Episcleritis of both eyes ??? Pain in joint ??? Infertility, female Outpatient Medications Marked as Taking for the 02/03/23 encounter (Office Visit) with Delaney Reyes MD Medication Sig ??? indomethacin (INDOCIN) 25 mg capsule Take 1 Capsule by mouth 3 times daily for 7 days. ??? vit no.129/iron/folic ( ONE DAILY ORAL) Take by mouth. Base Eye Exam Visual Acuity (Snellen - Linear) Right Left Dist sc 20/20 20/20 -1 Tonometry (iCare, 13:19) Right Left Pressure 15 15 Pupils Pupils Dark Light Shape React APD [...] Lids/Lashes Normal Normal Conjunctiva/Sclera White and quiet sectoral hypermeia temporally, no blanching with instillation ofphenylephrine drops Cornea Clear Clear Anterior Chamber Deep and quiet Deep and quiet Iris Round and reactive Round and reactive DIAGNOSTIC TESTS: IMPRESSION & PLAN: Encounter Diagnosis Name Primary? Scleritis of left eye Yes 1. Scleritis of left eye Examination findings today are consistent with scleritis rather than episcleritis. Will start her on indomethacin 25mg PO three times a day for 1 week. Asked her to call to let me know whether this accelerates the resolution of her symptoms. She has episodes once a month which is fairly frequent. Can potentially treat with indomethacin with flares. If no improvement with indomethacin, then would confer with Dr. Perrin about a steroid sparing agent. I have reviewed the patient's past medical, family, social and surgical history. I have also reviewed the patient's medications, allergies, and problem list. I performed my own HPI and have reviewed the [facility]'s ROS as well. I personally completed this exam myself. Delaney Reyes MD documented in this encounter Plan of Treatment Upcoming Encounters Date Type Department Care Team (Late st Contact Info) Description 07/22/2024 14:00 EST Office Visit [facility] Ophthalmology - [address] [address] Luis Reich MD [address] [place] [address], [address] [place] [address] documented as of this encounter Visit Diagnoses Diagnosis Scleritis of left eye- Primary Scleritis, unspecified documented in this encounter Eye Exam Visual Acuity (Snellen - Linear) Right eye Left eye Dist sc 20/20 20/20 -1 Tonometry (iCare, 13:19) Right eye Left eye Pressure 15 15 Pupils Pupils Dark Light Shape React APD [...] Lids/Lashes Normal Normal Conjunctiva/Sclera White and quiet sectoral hype rmeia temporally, no blanching with instillation of phenylephrine drops Cornea Clear Clear Anterior Chamber Deep and quiet Deep and quiet Iris Round and reactive Round and pb ctive Care Teams Manager Floral Relationship Specialty Start Date End Date Bianca Snow MD PCP - General 08/12/17 05/03/24 documented as of this encounter
--- OUTSIDE RECORDS SUMMARY | 2024-06-25 00:22 | XMS_ITS | Encounter Summary ---
Author Organization [facility] Address [address] [place] [address] Care Team Providers Care Orthotics Assistant Name Role Phone Bianca Snow MD Primary Care Provider Unavailabl e Unknown, Provider Primary Care Provider Unava ilable Reason for Visit * Reason Onset Date Comments Eye Problem 02/25/2024 Encounter Details Date Type Department Care Team (Late st Contact Info) Description 02/25/2024 Telephone [facility] Ophthalmology - [address] [place] [address] Delaney Reyes MD [address] [facility], [address] [place] [address] Eye Problem Social History Tobacco [...] encounter Miscellaneous Notes * Telephone Encounter - Jocelin Hathaway - 03/01/2024 1009 EDT Pt called back. Scheduled with SNS 03/05/24 at 1:00 PM. * Telephone Encounter - Neelam Ambrose - 02/27/2024 1359 EDT LMOM asking for a call back to be scheduled this PM with or with Head Screen Worker MD next week. 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 The longer this goes on, the worse it can become. * Telephone Encounter - Neelam Ambrose - 02/25/2024 1618 EDT Amy is out next week. Handed back to nursing for review with JDP regarding time frame. * Telephone Encounter - Ruperto Green RN - 02/25/2024 1530 EDT Per JDP. If pt wants to be seen next week. She can schedule with Dr. Reyes. And take motrin 3-4x daily until then. Please schedule pt and relay message. Chelo Green RN 02/25/2024 15:30 * Telephone Encounter - Johana Galloway - 02/25/2024 1513 EDT Spoke with Kandi. I offered her an appt tomorrow to which she declined as she has plans in preparation for her sister's wedding. She asked for an appt next week but admitting it may not be enflamed at that point. I let her know that it's AMA. She wanted to schedule for next week but I said that the doctor would need to reevaluate based on her decline. Let her know that we'd call her back with next steps. * Telephone Encounter - Ruperto Green RN - 02/25/2024 1413 EDT Per J. Schedule pt to be seen with him tomorrow. Chelo Green RN 02/25/2024 14:14 * Telephone Encounter - Ruperto Green RN - 02/25/2024 1211 EDT Placed on JDP desk for review. Chelo Green RN 02/25/2024 12:12 * Telephone Encounter - Jocelin Hathaway - 02/25/2024 1125 EDT As of 02/25/2024 11:25: Nature of problem? Pt believes having another flare up in left eye. Eye is red, a little swollen, not leaky, and painful. Who do you see for your eye care? (name all providers that patient has or currently sees) No one Onset and Duration? It started four or five days ago. Is this an injury or trauma? No Pain? Describe the type of pain you are having (sharp, dull, etc) 4/10 dull pain on the ear side ofeye, gets sharper if she looks towards nose. Have you recently had eye surgery? No Are you having new or changed flashes/and or floaters? No Any increased sensitivity to light? Yes Any loss of vision/curtain/darkness/veil? No Any change in vision/double vision/blurred? No Any redness and/or drainage (color)? Eye is red Please list any over the counter or prescription eye drops that patient is using? No Are you Diabetic? No Do you wear contact lenses? No Any other pertinent information? She believes is the same issue as before Would you be able to come in today if the provider needed to see you? Possible- in [facility] [address] long would it take you to get to our office? 1.5 hours What is the best phone number for us to speak to you? [phone] (VERIFY THE PHONE NUMBERS REGARDLESS OF WHAT IS IN THE SYSTEM.) Please list the next appointment or due date. None documented in this encounter Plan of Treatment Upcoming Encounters Date Type Department Care Team (Late st Contact Info) Description 07/22/2024 14:00 EST Office Visit [facility] Ophthalmology - [address] [address] Luis Reich MD [address] [place] [address], [address] [place] [address] documented as of this encounter Visit Diagnoses Not on filedocumented in this encounter Care Teams Orthotics Assistant Relationship Specialty Start Date End Date Bianca Snow MD PCP - General 08/12/17 05/03/24 Unknown, Olga, PCP - General 06/13/24 documented as of this encounter
--- OUTSIDE RECORDS SUMMARY | 2024-06-25 00:22 | XMS_ITS | Encounter Summary ---
Author Organization [facility] Address [address] [place] [address] Care Team Providers Care Data Processing Manager Name Role Phone Unavailable Primary Care Provider Unavailabl e Encounter Details Date Type Department Care Team (Late st Contact Info) Description 07/20/2010 Results Only [facility] Laboratory Services - [facility] ([facility]) [address] [place], [place] [id number] Angelica Stover, [facility] [address] [place] [address] [place] [address] Social History Tobacco Use Types Packs/Day Years [...] Info) Description 07/22/2024 14:00 EST Office Visit [facility] Ophthalmology - [facility] [address] [place], [place] [address] Luis Reich MD [address] [facility], [address] [place] [address] documented as of this encounter Procedures Procedure Name Priority Date/Time Associated Diagnosis Comments CYTOPATHOLOGY Routine 07/20/2010 0:00 EST documented in this encounter Results * CYTOPATHOLOGY (07/20/2010 0:00 EST) Pathology Report: CYTOPATHOLOGY REPORT ? Reports generated via electronic interface contain original data; ? however they are lacking the format of the original report. ? Caution should be taken when reading/interpreti ng unformatted reports. ? Name: ? ROSHAN NICE ? Accession #: ? [id number] ? : ? 1990 (Age: 19) ??F ?Collect Date: ? 07/20/2010 ? Location: ? [facility] ? Receive Date: ? 07/23/2010 ? Provider: ?ANGELICA MOY BARK FITTER ? Copy to: ? Specimen/Source: ?Pap Test, Cervix/Endocervix, ThinPrep Imaging System ? with manual evaluation ? Last Menstrual Period: ? Hormonal/Contracep tive Status: ? Intrauterine device: mirena ? Other: ? Additional clinical information: 7/1/08 pap WNL ? SPECIMEN ADEQUACY ? Satisfactory for Evaluation ? - transformation zone component present ? - scant squamous epithelial component secondary to excessive mucus ? GENERAL CATEGORIZATION ? Epithelial Cell Abnormality ? INTERPRETATION ? Squamous Cell Abnormality - Atypical squamous cells, undetermined ? significance (ASC-US). ? EDUCATIONAL NOTES/RECOMMENDATI ONS ? FOR[facility]LY [facility] recommends following the 2006 Consensus Guidelines for the Management of Women with Abnormal Cervical Cancer Screening Tests (JLGTD, ? 2007;11(4):201-222 ). ??Consensus guidelines are available online at ? www.ASCCP.org. ? Document reviewed and electronically signed by: ? CALEB MOUNT MD ? Report Date: ??07/26/2010 17:13 ? End of Report ? [facility] 07/20/2010 07/23/2010 us Angelica Stover BARK FITTER PATHOLOGY ORDERABLES Final R esult [facility] [address] [place] [address] documented in this encounter Visit Diagnoses Not on filedocumented in this encounter
--- OUTSIDE RECORDS SUMMARY | 2024-06-25 00:22 | XMS_ITS | Encounter Summary ---
Author Organization [facility] Address [address] [place] [address] Care Team Providers Care Director Broadcast Name Role Phone Bianca Snow MD Primary Care Provider Unavailabl e Reason for Referral * Radiology Services (Routine/Next Available) - Authorization Not Required Specialty Diagnoses / Procedures Referred By Contac t Referred To Contact Diagnoses Positive WILMA (antinuclear antibody) Procedures XR CHEST 2 VIEWS Lopez Perrin MBBS Phone: tel: fax: [facility] Referral ID Status Reason Start Date Expiration Date Visits Requested Visits Authorized [id number] Authorization Not Required 08/29/2022 1 1 Reason for Visit * Radiology Services (Routine/Next Available) - Authorization Not Required Specialty Diagnoses / Procedures [facility] Referred To Contact Diagnoses Positive WILMA (antinuclear antibody) Procedures XR CHEST 2 VIEWS Lopez Perrin [employer] Phone: tel: fax: [facility] Referral ID Status Reason Start Date Expiration Date Visits Requested Visits Authorized [id number] Authorization Not Required 08/29/2022 1 1 Encounter Details Date Type Department Care Team (Latest Contact Info) Description 08/29/2022 12:11 EST - 08/29/2022 23:59 EST Hospital Encounter [facility] Xray [address] [place], [place] [id number] Positive WILMA (antinuclear antibody) Discharge Disposition: Home or Self Care Social [...] 08/29/2022 11:09 EST documented in this encounter Medications at Time of Discharge vit no.129/iron/folic ( ONE DAILY ORAL) Take by mouth. cholecalciferol, Vitamin D3, 25 mcg (1,000 unit) tablet Take 1 Tablet by mouth daily. 03/05/2024 documented as of this encounter Discharge Disposition Disposition Code Departure Means Destination Home or Self Care documented in this encounter Plan of Treatment Upcoming Encounters Date Type Department Care Team (Late st Contact Info) Description 07/22/2024 14:00 EST Office Visit [facility] Ophthalmology - [address] [address] Luis Reich MD [address] [place] [address], [address] [place] [address] documented as of this encounter Procedures Procedure Name Priority Date/Time Associated Diagnosis Comments XR CHEST 2 VIEWS Routine 08/29/2022 12:2 8 EST Positive WILMA (antinuclear antibody) documented in [...] IMG DIAGNOSTIC IMAGING ORDERA BLES Final Result documented in this encounter Visit Diagnoses Diagnosis Positive WILMA (antinuclear antibody) Other and unspecified nonspecific immunological findings documented in this encounter Care Teams Director Broadcast Relationship Specialty Start Date End Date Bainca Snow MD PCP - General 08/12/17 05/03/24 documented as of this encounter
--- OUTSIDE RECORDS SUMMARY | 2024-06-25 00:22 | XMS_ITS | Encounter Summary ---
Author Organization [facility] Address [address] [place] [address] Care Team Providers Care Print Line Operator Name Role Phone Bianca Snow MD Primary Care Provider Unavailabl e Encounter Details Date Type Department Care Team (Late st Contact Info) Description 08/29/2022 11:55 EST Phlebotomy Only [facility] - Outpatient Phlebotomy Drawing [address] [place] [address] Lab, [facility] Positive WILMA (antinuclear antibody) Social History Tobacco Use Types Packs/Day Years [...] Info) Description 07/22/2024 14:[address] [facility] Ophthalmology - [place] [address] [place] [address] Luis Reich MD [address] [facility], [address] [place] [address] documented as of this encounter Procedures Procedure Name Priority Date/Time Associated Diagnosis Comments SS-B (LA) ANTIBODY, IGG Routine 08/29/2022 12:06 EST Positive WILMA (antinuclear antibody) ZZHN SSA ANTIBODIES BY DONTE Routine 08/29/2022 12:06 EST Positive WILMA (antinuclear antibody) SM (KOO) ANTIBODY, IGG Routine 08/29/2022 12:06 EST Positive WILMA (antinuclear antibody) CCP ANTIBODIES Routine 08/29/2022 12:06 EST Positive WILMA (antinuclear antibody) REHABILITATION SPECIALIST ANTIBODY, IGG Routine 08/29/2022 12: 06 EST Positive WILMA (antinuclear antibody) DOUBLE STRANDED DNA ANTIBODY, IGG Routine 08/29/2022 12:06 EST Positive WILMA (antinuclear antibody) C3 COMPLEMENT Routine 08/29/2022 12:06 EST Positive WILMA (antinuclear antibody) C4 COMPLEMENT Routine 08/29/2022 12:06 EST Positive WILMA (antinuclear antibody) THYROID ANTIBODIES Routine 08/29/2022 12 :06 EST Positive WILMA (antinuclear antibody) documented in this encounter Results * REHABILITATION SPECIALIST ANTIBODIES BY DONTE (08/29/2022 12:06 EST) REHABILITATION SPECIALIST Antibody 5.3 <20.0 Units 08/30/2022 15:25 EST [facility] Comment: ? Negative: <20.0 Units ? Weak Positive: 20.0 - 39.9 Units ? Moderate Positive: 40.0 - 80.0 Units ? Strong Positive: >80.0 Units Results were obtained with the [employer] Quanta Lite REHABILITATION SPECIALIST DONTE. REHABILITATION SPECIALIST values obtained with different chinese instructor's assay methods may not be used interchangeaby. ??The magnitude of the reported IgG levels cannot be be correlated to an endpoint titer. A positive result in the Quanta Lite REHABILITATION SPECIALIST DONTE indicates the presence of antibodies reactive with the REHABILITATION SPECIALIST/Sm complex but cannot distinguish between anti-Sm and anti-REHABILITATION SPECIALIST activity. Blood VENOUS BLOOD / Unknown Venipuncture / Unknown 08/29/2022 12:06 EST 08/29/2022 13:11 EST Result [facility] Lopez Perrin [facility]MM[facility] SEROLOGY ORDER KATTY Final Result Performing Organization Address [facility] de Phone Number [facility] [address] [place] [address] * SM (KOO) ANTIBODY (08/29/2022 12:06 EST) SM (Koo) Antibody 2.1 <20.0 Units 08/30/2022 15:28 EST [facility] Comment: ? Negative: <20.0 [...] 12:06 EST 08/29/2022 13:11 EST Lopez Perrin [facility]MM[facility] SEROLOGY ORDER KATTY Final Result Performing Organization Address [facility] de Phone Number [facility] [address] [place] [address] * THYROID ANTIBODIES (08/29/2022 12:06 EST) Anti-Thyroglobulin <15 <=60 U/mL 2022 22:03 EST [facility] Thyroperoxidase Ab <28 <=60 U/mL 2022 22:03 EST [facility] Blood VENOUS BLOOD / Unknown Venipuncture / Unknown 08/29/2022 12:06 EST 08/29/2022 13:17 EST Lopez PACHECO CHEMISTRY & BLOOD GAS ORDERAB LES Final Result Performing Organization Address [facility] de Phone Number [facility] [address] [place] [address] * SSA ANTIBODIES BY DONTE (08/29/2022 12:06 EST) Pathologist [facility] SSA Antibody 0.8 <20.0 Units 08/30/2022 15:14 EST [facility] Comment: ? Negative: <20.0 Units ? Weak Positive: 20.0 - 39.9 Units ? Moderate Positive: 40.0 - 80.0 Units ? Strong Positive: >80.0 Units Results were obtained with the [employer] QUANTA Lite SS-A DONTE. ??SS-A values obtained with different manufacturers' assay methods may not be used interchangeably. ??The magnitude of the reported IgG levels cannot be correlated to an endpoint titer. Blood VENOUS BLOOD / Unknown Venipuncture / Unknown 08/29/2022 12:06 EST 08/29/2022 13:11 EST Lopez PACHECO IMMUNOLOGY AND SEROLOGY ORDER KATTY Final Result Performing Organization Address [facility] Co de Phone Number [facility] [address] [place] [address] * SSB ANTIBODIES BY DONTE (08/29/2022 12:06 EST) SSB Antibody 1.9 <20.0 Units 08/30/2022 15:19 EST [facility] Comment: ? Negative: <20.0 Units ? Weak Positive: 20.0 - 39.9 Units ? Moderate Positive: 40.0 - 80.0 Units ? Strong Positive: >80.0 Units Results were obtained with the [employer] QUANTA Lite SS-B DONTE. ??SS-B values obtained with different manufacturers' assay methods may not be used interchangeably. ??The magnitude of the reported IgG levels cannot be correlated to an endpoint titer. Blood VENOUS BLOOD / Unknown Venipuncture / Unknown 08/29/2022 12:06 EST 08/29/2022 13:11 EST Lopez PACHECO IMMUNOLOGY AND SEROLOGY ORDER KATTY Final Result [facility] [address] [place] [address] * ANTI DNA (DOUBLE STRANDED) (08/29/2022 12:06 EST) [facility] Anti-DNA (Double Stranded) <12.3 <30.0 IU/mL 08/30/2022 14:00 EST [facility] Comment: ? Negative: ??<30.0 IU/mL ? Borderline Positive: ??30.0 - 75.0 IU/mL ? Positive: ??>75.0 IU/mL Results were obtained with the [employer] QUANTA Lite dsDNA SC DONTE assay on the [employer]. Blood VENOUS BLOOD / Unknown Venipuncture / Unknown 08/29/2022 12:06 EST 08/29/2022 13:11 EST Lopez PACHECO IMMUNOLOGY AND SEROLOGY ORDER KATTY Final Result [facility] [address] [place] [address] * C4 COMPLEMENT (08/29/2022 12:06 EST) C4 Complement 22 13 - 39 mg/dL 08/30/2022 10:03 EST [facility] Blood VENOUS BLOOD / Unknown Venipuncture / Unknown 08/29/2022 12:06 EST 08/29/2022 13:17 EST Lopez PACHECO CHEMISTRY & BLOOD GAS ORDERAB LES Final Result Performing Organization Address [facility]/ZIP Co de Phone Number [facility] [address] [place] [address] * C3 COMPLEMENT (08/29/2022 12:06 EST) C3 Complement 129 81 - 157 mg/dL 08/30/2022 10:03 EST [facility] Blood VENOUS BLOOD / Unknown Venipuncture / Unknown 08/29/2022 12:06 EST 08/29/2022 13:17 EST Lopez PACHECO CHEMISTRY & BLOOD GAS ORDERAB LES Final Result Performing Organization Address City/[facility]/ZIP Co de Phone Number [facility] [address] [place] [address] * CCP ANTIBODIES (08/29/2022 12:06 EST) CCP Antibodies <2.5 <5.0 U/mL 08/30/2022 10:43 EST [facility] Blood VENOUS BLOOD / Unknown Venipuncture / Unknown 08/29/2022 12:06 EST 08/29/2022 13:17 EST Lopez PACHECO IMMUNOLOGY AND SEROLOGY ORDER KATTY Final Result [facility] [address] [place] [address] documented in this encounter Visit Diagnoses Diagnosis Positive WILMA (antinuclear antibody) Other and unspecified nonspecific immunological findings documented in this encounter Care Teams Print Line Operator Relationship Specialty Start Date End Date Bianca Snow MD PCP - General 08/12/17 05/03/24 documented as of this encounter
--- OUTSIDE RECORDS SUMMARY | 2024-06-25 00:22 | XMS_ITS | Encounter Summary ---
Author Organization [facility] Address [address] [place] [address] Care Team Providers Care Telegraph Editor Name Role Phone Bianca Snow MD Primary Care Provider Unavailabl e Reason for Visit * Reason Onset Date Comments Eye Pain 08/04/2023 Eye Problem 08/04/2023 Encounter Details Date Type Department Care Team (Late st Contact Info) Description 08/04/[address] [facility] Ophthalmology - [address] [address] Delaney Reyes MD [address] [place] [address], [address] [place] [address] Eye Pain; Eye Problem Social History Tobacco Use Types [...] for 7 days then stop. 21 Capsule 08/04/2023 documented in this encounter Miscellaneous Notes * Telephone Encounter - Ruperto Green RN - 08/04/2023 1311 EST Pt not . Medication qued and sent for review. Chelo Green RN 08/04/2023 13:14 * Telephone Encounter - Ruperto Green RN - 08/04/2023 1217 EST Called pt to get more specifics on symptoms. Left eye is swollen puffy, irritated, redness in eye and around it, mildly teary no vision changes. No trauma, no contacts pain up to 6-7/10 at its worst.Started only a few days ago. Right eye currently has no symptoms. Pt was treated by us for episcleritis in the within last year (02/03/2023). Chelo Green RN 08/04/2023 12:26 * Telephone Encounter - Verenice Mark - 08/04/2023 1153 EST Scleritis (or episcleritis, she doesn't recall the exact diagnosis) has flared up and the patient is asking that indomethacin be sent to her pharmacy. Pharmacy: [facility] in [facility]. Symptoms: Inflammation in left eye, pain 6-7/10. documented in this encounter Plan of Treatment Upcoming Encounters Date Type Department Care Team (Late st Contact Info) Description 07/22/2024 14:00 EST Office Visit [facility] Ophthalmology - [address] [address] Luis Reich MD [address] [place] [address], [address] [place] [address] documented as of this encounter Visit Diagnoses Not on filedocumented in this encounter Care Teams Telegraph Editor Relationship Specialty Start Date End Date Bianca Snow MD PCP - General 08/12/17 05/03/24 documented as of this encounter
--- OUTSIDE RECORDS SUMMARY | 2024-06-25 00:22 | XMS_ITS | Encounter Summary ---
Author Organization [facility] Address [address] [place] [address] Care Team Providers Care House Mover Supervisor Name Role Phone Unavailable Primary Care Provider Unavailabl e Encounter Details Date Type Department Care Team (Late st Contact Info) Description 01/21/2008 Before PRISM Converted Visit (Maple) [facility] - Maple conversion [address] [place] [address] Angelica Stover, [facility] [address] [place] [address] [place] [address] Social History Tobacco Use Types [...] Info) Description 07/22/2024 14:00 EST Office Visit [facility] Ophthalmology - [facility] [address] [place] [address] Luis Reich MD [address] [facility], [address] [place] [address] documented as of this encounter Procedures Procedure Name Priority Date/Time Associated Diagnosis Comments CYTOPATHOLOGY Routine 01/21/2008 0:00 EDT documented in this encounter Results * CYTOPATHOLOGY (01/21/2008 0:00 EDT) Pathology Report: CYTOPATHOLOGY REPORT ? Reports generated via electronic interface contain original data; ? however they are lacking the format of the original report. ? Caution should be taken when reading/interpreti ng unformatted reports. ? Name: ? ROSHAN NICE ? Accession #: ? [id number] ? : ? 1990 (Age: 17) ??F ?Collect Date: ? 01/21/2008 ? Location: ? [facility] ? Receive Date: ? 01/22/2008 ? Provider: ?ANGELICA MOY SEARCH STRATEGIST ? Copy to: ? Specimen/Source: ?ThinPrep Pap Test, Cervix/Endocervix, processed on Leotus ThinPrep Imaging System, with manual evaluation ? Last Menstrual Period: ? 6/15/08 ? Other: ? Additional clinical information: 1st pap ? SPECIMEN ADEQUACY ? Satisfactory for Evaluation ? - transformation zone component present ? GENERAL CATEGORIZATION ? Negative for Intraepithelial Lesion or Malignancy ? Document reviewed and electronically signed by: ? Lynan Pierre, CT(ASCP) ? Report Date: ??01/28/2008 14:37 ? End of Report ? BETINA DENISE 01/21/2008 01/22/2008 us Angelica Stover SEARCH STRATEGIST PATHOLOGY ORDERABLES Final R esult BETINA DENISE [address] [place] [address] documented in this encounter Visit Diagnoses Not on filedocumented in this encounter
--- OUTSIDE RECORDS SUMMARY | 2024-06-25 00:22 | XMS_ITS | Encounter Summary ---
Author Organization [facility] Address [address] [place] [address] Care Team Providers Care Offline Editor Name Role Phone Bianca Snow MD Primary Care Provider Unavailabl e Unknown, Provider Primary Care Provider Unava ilable Encounter Details Date Type Department Care Team (Late st Contact Info) Description 01/12/2021 Lab Requisition [facility] Pathology & Laboratory Medicine - [address] [id number] Outr Resulting Lab, Provider Social History Tobacco [...] 07/22/2024 14:00 EST Office Visit [facility] Ophthalmology - [address] [phone] Luis Reich MD [address] [place] [address], [address] [place] [address] documented as of this encounter Procedures Procedure Name Priority Date/Time Associated Diagnosis Comments CHLAMYDIA/N. GONORRHOEAE AMPLIFIED NUCLEIC ACID Routine 01/12/2021 11:00 EDT documented in this encounter Results * CHLAMYDIA/N. GONORRHOEAE AMPLIFIED RNA (01/12/2021 11:00 EDT) Neisseria gonorrhoeae Result Negative Negative 01/15/2021 13:25 EDT [facility] Chlamydia trachomatis Result Negative Negative 01/15/2021 13:25 EDT [facility] Swab ENTIRE ENDOCERVIX / Unknown 01/12/2021 11:00 EDT 01/12/2021 21:08 EDT us Provider Outr Resulting Lab MICROBIOLOGY - GENER AL ORDERABLES Final Result [facility] [address] [place] [address] documented in this encounter Visit Diagnoses Not on filedocumented in this encounter Care Teams Offline Editor Relationship Specialty Start Date End Date Bianca Snow MD PCP - General 08/12/17 05/03/24 Unknown, MD Olga PCP - General 06/13/24 documented as of this encounter
--- OUTSIDE RECORDS SUMMARY | 2024-06-25 00:22 | XMS_ITS | Encounter Summary ---
Author Organization [facility] Address [address] [place] [address] Care Team Providers Care Real Time Operator Name Role Phone Bianca Snow MD Primary Care Provider Unavailabl e Unknown, Provider Primary Care Provider Unava ilable Reason for Visit * Reason Onset Date Comments Appointment Related 03/18/2024 Encounter Details Date Type Department Care Team (Late st Contact Info) Description 03/18/2024 Telephone [facility] Ophthalmology - [place] [id number] [place], [place] [phone] Judi Roberto MD [address] [facility], [address] [place] [address] Appointment Related Social History Tobacco Use Types Packs/Day Years [...] encounter Miscellaneous Notes * Telephone Encounter - Neelam Ambrose - 03/22/2024 1123 EDT scheduled * Telephone Encounter - Neelam Ambrose - 03/18/2024 1501 EDT [facility] asking for a call back to be scheduled with LH. Upon call back please transfer to Neelam. Pt to be scheduled 9.23.24 with LH at 10 am * Telephone Encounter - Nevaeh Gee - 03/18/[address] Pardeep Shaw wanted patient to have follow-up with Dr. Reyes. She's due to be seen. Thank you- Tammy ----- Message from Judi Roberto MD sent at 03/13/2024 22:18 EDT ----- follow up with Dr Reyes within 1-2 weeks documented in this encounter Plan of Treatment Upcoming Encounters Date Type Department Care Team (Late st Contact Info) Description 07/22/2024 14:00 EST Office Visit [facility] Ophthalmology - [facility] [address] [place], [place] [phone] Luis Reich MD [address] [facility], [address] [place] [address] documented as of this encounter Visit Diagnoses Not on filedocumented in this encounter Care Teams Real Time Operator Relationship Specialty Start Date End Date Bianca Snow MD PCP - General 08/12/17 05/03/24 Unknown, Provider, PCP - General 06/13/24 documented as of this encounter
--- OUTSIDE RECORDS SUMMARY | 2024-06-25 00:22 | XMS_ITS | Encounter Summary ---
Author Organization [facility] Address [address] [place] [address] Care Team Providers Care Paper Folding Machine Operator Name Role Phone Bianca Snow MD Primary Care Provider Unavailabl e Unknown, Provider Primary Care Provider Unava ilable Encounter Details Date Type Department Care Team (Late st Contact Info) Description 01/17/2021 Lab Requisition [facility] Pathology & Laboratory Medicine - [address] [phone] Outr Resulting Lab, Provider Social History Tobacco [...] Description 07/22/2024 14:00 EST Office Visit [facility] Ophthalmology - [address] [address] Luis Reich MD [address] [place] [address], [address] [place] [address] documented as of this encounter Procedures Procedure Name Priority Date/Time Associated Diagnosis Comments RUBELLA IGG ANTIBODY Routine 01/17/2021 9:45 EDT VARICELLA IGG ANTIBODY Routine 01/17/2021 9:45 EDT documented in this encounter Results * VARICELLA IGG ANTIBODY (01/17/2021 9:45 EDT) Varicella IgG Ab Positive See Note 01/18/2021 10:44 EDT [facility] Comment:Presence of detectab le Varicella Zoster virus IgG antibodies. Blood VENOUS BLOOD / Unknown 01/17/2021 9:45 EDT 01/17/2021 15:57 EDT us Provider Outr Resulting Lab IMMUNOLOGY AND SEROL OGY ORDERABLES Final Result Performing Organization Address City/[facility]/ZIP Co de Phone Number [facility] [address] [place] [address] * RUBELLA IGG ANTIBODY (01/17/2021 9:45 EDT) Rubella IgG Ab Positive See Note 01/18/2021 10:48 EDT [facility] Comment:Positive for IgG ant ibodies to Rubella virus. Blood VENOUS BLOOD / Unknown 01/17/2021 9:45 EDT 01/17/2021 15:57 EDT us Provider Outr Resulting Lab CHEMISTRY & BLOOD GA S ORDERABLES Final Result Performing Organization Address City/[facility]/ZIP Co de Phone Number [facility] [address] [place] [address] documented in this encounter Visit Diagnoses Not on filedocumented in this encounter Care Teams Paper Folding Machine Operator Relationship Specialty Start Date End Date Bianca Snow MD PCP - General 08/12/17 05/03/24 Olga Leon MD PCP - General 06/13/24 documented as of this encounter
== END 2024-06-25 00:36 ==
LOC: DI 00:16
PROVIDERS: PCP Nurse Practitioner Family; Visit Provider Nurse Practitioner Family
DX: N92.6 Irregular menstruation, unspecified (principal); N83.291 Other ovarian cyst, right side
CPT/HCPCS: 76830; 76856

== ENCOUNTER 2025-07-11 16:28 | Outpatient (REF) | payer OTHER, SELFPAY ==
[2025-07-11 21:30] LABS: Glucose Negative (Negative)
[2025-07-11 21:52] LABS: RBC 20-50 HPF (0-2)
== END 2025-07-11 16:29 | disposition home or self-care (01) ==
LOC: NCHCN 16:28
PROVIDERS: PCP Nurse Practitioner Family; Visit Provider Nurse Practitioner Family
DX: R39.89 Other symptoms and signs involving the genitourinary system (principal)
CPT/HCPCS: 81003; 81015; 87086